=== PATIENT | female | born 1950 | race Caucasian/White ===

== ENCOUNTER → 2017-07-06 10:08 | Outpatient (CLI) | payer MEDICARE, MEDICAID, SELFPAY ==
[2017-07-06 12:00] LABS: Absolute Lymphocyte Count 1.84 X10^3/ul (0.83-4.51); Absolute Neutrophil Count 2.7 X10^3/uL (2.0-7.7); Basophil# 0.02 X10^3/uL; Basophil% 0.4 % (0-1); Eosinophil# 0.12 X10^3/uL; Eosinophils% 2.3 % (0-5); Hematocrit 41.5 % (37-47); Hemoglobin 13.3 g/dl (12.0-15.0); Lymphocyte # 1.84 X10^3/ul (4.0); Lymphocyte % 35.7 % (19-41); Mean Corpuscular Hgb 31.1 pg (27.0-32.0); Mean Platelet Vol. 9.8 fl (6.2-12.0); Monocyte# 0.49 X10^3/uL; Monocyte% 9.5 % (0-10); Neutrophil # 2.67 X10^3/uL (2.7-7.7); Neutrophil % 51.9 % (47-70); Platelet Count 212 K/mm3 (150-450); RBC Distribution Width CV 14.5 % (11.6-14.6); RBC Distribution Width SD 51.4 fl (35.1-43.9); Red Blood Count 4.28 M/mm3 (4.2-5.4); White Blood Count 5.2 K/mm3 (4.4-11.0)
[2017-07-06 12:03] LABS: POSITIVE COUNT NO; POSITIVE DIFFERENTIAL NO; POSITIVE MORPHOLOGY NO
[2017-07-06 12:23] LABS: Anion Gap 7 (5-15); BUN 15 mg/dL (7-18); BUN/Creat Ratio 20.2 RATIO (10-20); Calcium,Total 9.4 mg/dL (8.5-10.1); Chloride 103 mmol/L (98-107); Cholesterol 185 mg/dL (200); Creatinine, Serum 0.74 mg/dL (0.55-1.02); EST Glomerular Filtration Rate 83 mL/min (>60); Est Glom Filt Rate - Afr Amer 101 mL/min (>60); Glucose 103 mg/dL (74-106); High Density Lipoprotein 46 mg/dL; Potassium 4.2 mmol/L (3.5-5.1); Sodium Level 141 mmol/L (136-145); Thyroid Stim Hormone (TSH) 2.59 uIU/mL (0.358-3.74); Triglycerides 160 mg/dL; Very Low Density Lipoprotein 32 mg/dL (5-40)
[2017-07-07 10:36] LABS: Vitamin D,25 Hydroxy 40.2 ng/mL (19.95-100.01)
== END ==
PROVIDERS: Family Provider Family Medicine; PCP Family Medicine; Visit Provider Family Medicine
DX: Z00.00 Encounter for general adult medical examination without abnormal findings (principal)
CPT/HCPCS: 36415; 80048; 80061; 82306; 84443; 85025

== ENCOUNTER → 2017-11-14 11:29 | Outpatient (CLI) | payer MEDICARE, MEDICAID, SELFPAY ==
[2017-11-14 14:19] LABS: Hematocrit 40.3 % (37-47); Hemoglobin 13.3 g/dl (12.0-15.0); Mean Corpuscular Hgb 32.5 pg (27.0-32.0); Mean Corpuscular Volume 98.5 fL (81-99); Platelet Count 212 K/mm3 (150-450); RBC Distribution Width CV 14.5 % (11.6-14.6); Red Blood Count 4.09 M/mm3 (4.2-5.4); White Blood Count 6.3 K/mm3 (4.4-11.0)
[2017-11-14 14:29] LABS: Scan Indicated on CBC? Y/N NO
[2017-11-14 15:16] LABS: ALB/GLOB Ratio 1.1 RATIO (0.9-2.4); AST(SGOT) 33 U/L (15-37); Alanine Aminotransfer ALT/SGPT 36 U/L (13-56); Albumin, Serum 3.7 g/dL (3.2-5.0); Alkaline Phosphatase 76 U/L (45-117); Anion Gap 8 (5-15); BUN 15 mg/dL (7-18); BUN/Creat Ratio 21.8 RATIO (10-20); Calcium,Total 9.1 mg/dL (8.5-10.1); Chloride 108 mmol/L (98-107); Creatinine, Serum 0.69 mg/dL (0.55-1.02); EST Glomerular Filtration Rate 91 mL/min (>60); Est Glom Filt Rate - Afr Amer 110 mL/min (>60); Ferritin 166 ng/mL (8-252); Globulin 3.5 g/dL (2.2-4.2); Glucose 76 mg/dL (74-106); Iron 64 ug/dL (50-170); Magnesium 1.9 mg/dL (1.6-2.6); Potassium 3.6 mmol/L (3.5-5.1); Protein, Total 7.2 g/dL (6.4-8.2); Sodium Level 142 mmol/L (136-145)
[2017-11-15 09:43] LABS: Vitamin B12 618 pg/mL (211-911)
[2017-11-17 11:55] LABS: Zinc, Plasma or Serum 82 ug/dL (56-134)
== END ==
PROVIDERS: PCP Family Medicine; Visit Provider Surgery
DX: K90.9 Intestinal malabsorption, unspecified (principal); R06.09 Other forms of dyspnea; E66.01 Morbid (severe) obesity due to excess calories; E61.7 Deficiency of multiple nutrient elements; G47.10 Hypersomnia, unspecified; R10.9 Unspecified abdominal pain; G89.18 Other acute postprocedural pain
CPT/HCPCS: 36415; 80053; 82607; 82728; 82746; 83540; 83735; 84630; 85027

== ENCOUNTER → 2018-03-08 12:25 | Outpatient (CLI) | payer MEDICARE, MEDICAID, SELFPAY ==
--- NOTE | 2018-03-08 12:29 | US_ITS ---
STUDY: RENAL ULTRASOUND - COMPLETE REASON FOR EXAM: Female, 67 years old. H/O LT RENAL MASS- PARTIAL NEPHRECTOMY TECHNIQUE: Ultrasound evaluation of the kidneys was performed with real-time and static alba-scale imaging. COMPARISON: None. FINDINGS: RIGHT KIDNEY: Normal location of the right kidney, which is normal in size. The right kidney measures 10.5x5.2x4.9 cm. There is a normal cortex of the right kidney. The renal cortex measures 1.5 cm. There is no right renal mass or cyst. There are no right renal calculi. There is no right hydronephrosis. DISTAL RIGHT URETER: There is non-visualization of the distal right ureter. There is no demonstrated right ureterovesical junction calculus. There is no demonstrated right ureteral jet. LEFT KIDNEY: Normal location of the left kidney, which is normal in size. The left kidney measures 8.1x5x3.6 cm. There is a normal cortex of the left kidney. The renal cortex measures 1.1 cm. There is no left renal mass or cyst. There are no left renal calculi. There is no left hydronephrosis. DISTAL LEFT URETER: There is non-visualization of the distal left ureter. There is no demonstrated left ureterovesical junction calculus. There is no demonstrated left ureteral jet. BLADDER: There is a normal wall thickness of the distended urinary bladder. There is no demonstrated mass within the urinary bladder. There are no demonstrated bladder calculi. US/Kidney and Bladder IMPRESSION: Normal ultrasound of the kidneys and urinary bladder. Electronically Signed: Tariq Connor MD at 21:00 EDT , Service support ,
[2018-03-08 14:15] LABS: Anion Gap 8 (5-15); BUN 14 mg/dL (7-18); BUN/Creat Ratio 19.1 RATIO (10-20); Calcium,Total 9.6 mg/dL (8.5-10.1); Chloride 108 mmol/L (98-107); Creatinine, Serum 0.73 mg/dL (0.55-1.02); EST Glomerular Filtration Rate 84 mL/min (>60); Est Glom Filt Rate - Afr Amer 102 mL/min (>60); Glucose 82 mg/dL (74-106); Potassium 3.8 mmol/L (3.5-5.1); Sodium Level 144 mmol/L (136-145)
== END ==
PROVIDERS: Family Provider Family Medicine; PCP Family Medicine
DX: N28.89 Other specified disorders of kidney and ureter (principal)
CPT/HCPCS: 36415; 76770; 80048

== ENCOUNTER → 2018-03-26 07:15 | Outpatient (CLI) | payer MEDICARE, MEDICAID, SELFPAY ==
--- NOTE | 2018-03-26 07:21 | MRI_ITS ---
STUDY: MRI LUMBAR SPINE WITHOUT CONTRAST REASON FOR EXAM: Female, 67 years old. lbp,radiculopathy, lt leg pain. TECHNIQUE: Standardized fat and water weighted pulse sequences were obtained in the sagittal and axial planes. COMPARISON: None FINDINGS: T12-L1: There is mild disc space narrowing and endplate spondylosis. There is no significant disc herniation, central canal or foraminal stenosis. Normal lumbar lordosis. There is no substantial scoliosis. Normal conus medullaris that terminates at the L1 L1-2: There is minimal disc space narrowing and endplate spondylosis. There is no significant disc herniation, central canal or foraminal stenosis. There is 1.8 cm vertebral hemangioma at L2 L2-3: Normal endplates. Normal disc height, hydration and morphology. There is mild facet arthropathy. Normal central canal and bilateral lateral recesses. Normal bilateral intervertebral neural foramina. L3-4: There is minimal disc space narrowing and endplate spondylosis. There is no significant disc herniation, central canal or foraminal stenosis. There is moderate facet arthropathy. L4-5: There is minimal disc space narrowing and endplate spondylosis. There is severe facet arthropathy with grade 1 anterolisthesis without significant central canal or foraminal stenosis. L5-S1: Normal endplates. Normal disc height, hydration and morphology. Normal central canal and bilateral lateral recesses. Normal bilateral intervertebral neural foramina. There is severe facet arthropathy. Normal visualized sacral ala. Normal visualized paraspinous soft tissue structures. MRI/Spine Lumbar (Routine) IMPRESSION: L4/L5: Grade 1 degenerative anterolisthesis. L5/S1: Severe facet arthropathy. Electronically Signed: Claudia Keane MD at 15:22 EST Tel , Service support ,
== END ==
PROVIDERS: Family Provider Family Medicine; PCP Family Medicine; Referring Provider Specialist; Visit Provider Specialist
DX: M54.16 Radiculopathy, lumbar region (principal); M46.87 Other specified inflammatory spondylopathies, lumbosacral region; R53.1 Weakness
CPT/HCPCS: 72148

== ENCOUNTER 2018-03-29 11:30 | Outpatient (RCR) | payer MEDICARE, MEDICAID, SELFPAY ==
--- NOTE | 2018-03-08 15:56 | HP.PTEVAL_ITS ---
Patient's Visit Information NATALIO ADAIR is a 67 year old F referred to Physical Therapy by Kishor Oneal MD with a diagnosis of B knee OA. Date of Evaluation: 03/08/18 Physical Therapist: Alex Tello DPT, OC - Visit Plan Frequency: 3x /Week Duration: 4-6 Weeks Plan: 3x/week for 4-6 to start pool ex for posture adn LE strength in pool working on floor to stand transffer as able. Progress to I program via [employer] and consider machines after if willing. - Subjective Subjective: Had R TKA 2 yrs ago. Fell on L knee one year ago adn kristin tL knee cracking knee cap. Hard to get off ground. Fell on wet floor with clogs. R knee feels good since gastric bypass in September but L still hurts. Can't go on walks due to L knee pain. L hip appt due to pain in L hip whcih may need replaced. Not overly stable on legs. Has other falls described as misstep. Sleep is OK. L knee hurts to walk immediately /10. No steps at home. No cane or walker but has them. No numbness except surgical. No spinning. Not empl yed. Housework. does it but it hurts, avoids mopping. Basic ADLs are OK just slow ansd painful. No active hobbies. No regular exercises, may get a bike. L knee was replaced in 2001 as was R. - Pain L knee pain Pain Intensity (Out of 10): 0 Pain Intensity Range: 0, 8 - Objective L knee antalgia but I with gait without AD. Trasnfers are I with UE. bed trasnfer I. Unable to get off floor subjectively. AROM B knees 0-135 aROM without pain increase. Patella stiff B without pain increase. reflexes 2/3 patella and achilles B. Sensation WNl to gross light touch except lateral knee B slightly deficit. Strength is 4/5 R knee adn hip and ankle. L knee ext is 3+ with some pain, L knee flexion 4- , hip flexion L 3+ with pain, abd 4-, ext 3/5, ankle 4/5. - Balance Scores Functional Gait Assessment Score: 23 % Disability: 23.3400 - Goals Goal 1:: I approp HEP in pool to minimize pain and max strength L LE. Goal Time Frame: 4-6 Weeks Goal 2:: Pt report a 50% improvement in L knee pain to 3/10 at worst. Goal Time Frame: 4-6 Weeks Goal 3:: Get up off floor without assist. Goal Time Frame: 4-6 Weeks - Rehabilitation Potential Physical Therapy Diagnosis: B knee OA L hurts more than R. Rehabilitation Potential: Fair - Anticipated Interventions Patient/Client Instruction: Educate patient on: Condition, Plan of Care For the Purpose of:: To decrease pain, To increase tolerance to activity/condition/position Therapeutic Exercise to Include: Strength training, In an aquatic setting For the Purpose of:: To decrease pain, To increase tolerance to activity/condition/position, To improve ability of physical actions for home/community/work/leisure Thank you for the opportunity to evaluate your patient. For Medicare and Medicare HMO plans, please review the plan of care and approve it. It will need to be FAXED BACK to us at [phone] for Medicare purposes. Please let me know if there are questions or concerns regarding this plan of care. Physician Signature: Date :
--- NOTE | 2018-03-29 12:01 | HP.PTREVAL_ITS ---
Kishor Oneal MD, It has been my pleasure to treat NATALIO ADAIR over the last 9 visits for B knee OA. Please see the progress note below for an update on the physical therapy plan of care! Subjective: I can feel it getting stronger. Some pain in the water initially, backed off and the last two weeks ahve been better. Had an MRI on back on Monday for a different pain into L hip and LB. Has spinal stenosis. Dr. Oneal regarding knee said she needs surgery TKA but can't have due to recent gastric surgery adn has to wait until spring. Has script for LB today. Knee hurts if she walks too far 11/21 and feels better immediately with NWB. Will go to [facility] for winter just after [place]. Wants Objective/Function: No major changes to ROM. Still very tender lat L knee joint line to palpation and with each step WB on L. Knee AROM WFL for walking. Walks with mild L antalgia I. OVERALL RECOMMENDING CONTINUING I IN WATER. PT WOUD ALSO LIKE LAND BASED EX FOR KNEE HEALTH AND STRENGTH AND WILL BE TAUGHT THAT OVER THE NEXT 2 WEEKS. Plan Plan: 2X/WEEK FOR TWO WEEKS TO TEACH LAND BASED KNEE AND HIP STRENGTH TO TOLERANCE(START NWB AND PROGRESS TO WB TOLERATED) PLEASE TEACH EX BIKE AND GIVE PICS FOR HOME. MAY USE MH IF NEEDED. PT WILL SEE DOCTOR FOR LB PLANS TODAY AND MAY NEED TO SCHEDULE LB EVALUATION(SCRIPT IS HERE) Goals Goal 1:: I approp HEP in pool to minimize pain and max strength L LE. Goal Time Frame: 4-6 Weeks Goal Progress: pool, NEEDS LAND. Goal 2:: Pt report a 50% improvement in L knee pain to 3/10 at worst. Goal Time Frame: 4-6 Weeks Goal Progress: Goal Met Goal 3:: Get up off floor without assist. Goal Time Frame: 4-6 Weeks Goal Progress: Not Progressing Anticipated Interventions Patient/Client Instruction: Educate patient on: Condition, Plan of Care For the Purpose of:: To decrease pain, To increase tolerance to activity/condition/position Therapeutic Exercise to Include: Strength training, In an aquatic setting For the Purpose of:: To decrease pain, To increase tolerance to activity/condition/position, To improve ability of physical actions for home/community/work/leisure Please do not hesitate to contact me at [phone] by phone or if you have questions or concerns regarding this new plan of care! Sincerely, Alex Tello, DPT, OC
--- NOTE | 2018-05-25 13:48 | HP.PTDCNRP_ITS ---
HP - Discharge Summary (1) - Patient Information NATALIO ADAIR was seen in my office for initial evaluation on 03/08/18. The following Plan of Care was established for this patient: Initial Frequency: 3x /Week Initial Duration: 4-6 Weeks - Anticipated Interventions Patient/Client Instruction: Educate patient on: Condition, Plan of Care For the Purpose of:: To decrease pain, To increase tolerance to activity/condition/position Therapeutic Exercise to Include: Strength training, In an aquatic setting For the Purpose of:: To decrease pain, To increase tolerance to activity/condition/position, To improve ability of physical actions for home/community/work/leisure This patient was last seen in our office 03/29/18. Pertinent comments regarding their Physical therapy will appear below: Pt seen 9 visits and POC was for two more weeks. Patient neglected to schedule or attend. It has been over 6 weeks adn i will discontinue due to nonattend ance. At this point I will be discontinuing this patient from physical therapy. I would be happy to see this patient again in the future if found appropriate by the physician. Thank you! Alex Tello, DPT, OCS, CSCS
== END 2018-03-29 19:00 | disposition home or self-care (01) ==
LOC: PT 11:30
PROVIDERS: Family Provider Family Medicine; PCP Family Medicine; Referring Provider Specialist; Visit Provider Specialist
DX: Z96.652 Presence of left artificial knee joint (principal); Z96.651 Presence of right artificial knee joint
CPT/HCPCS: 36415; 76770; 80048; 97113; 97162; 97530

== ENCOUNTER → 2018-04-13 09:53 | Outpatient (CLI) | payer MEDICARE, MEDICAID, SELFPAY ==
[2018-04-13 10:53] LABS: Hematocrit 39.1 % (37-47); Hemoglobin 12.8 g/dl (12.0-15.0); Mean Corp Hgb Conc 32.7 g/gl (32-36); Mean Corpuscular Hgb 32.2 pg (27.0-32.0); Mean Corpuscular Volume 98.2 fL (81-99); Mean Platelet Vol. 10.6 fl (6.2-12.0); Platelet Count 217 K/mm3 (150-450); RBC Distribution Width CV 14.4 % (11.6-14.6); RBC Distribution Width SD 50.1 fl (35.1-43.9); Red Blood Count 3.98 M/mm3 (4.2-5.4); White Blood Count 3.7 K/mm3 (4.4-11.0)
[2018-04-13 10:54] LABS: Scan Indicated on CBC? Y/N NO
[2018-04-13 11:26] LABS: Vitamin B12 497 pg/mL (211-911)
[2018-04-13 11:58] LABS: ALB/GLOB Ratio 1.1 RATIO (0.9-2.4); AST(SGOT) 27 U/L (15-37); Alanine Aminotransfer ALT/SGPT 26 U/L (13-56); Albumin, Serum 3.6 g/dL (3.2-5.0); Alkaline Phosphatase 93 U/L (45-117); Anion Gap 7 (5-15); BUN 11 mg/dL (7-18); BUN/Creat Ratio 17.8 RATIO (10-20); Calcium,Total 8.7 mg/dL (8.5-10.1); Chloride 107 mmol/L (98-107); Cholesterol 136 mg/dL (200); Creatinine, Serum 0.62 mg/dL (0.55-1.02); EST Glomerular Filtration Rate 102 mL/min (>60); Est Glom Filt Rate - Afr Amer 124 mL/min (>60); Ferritin 137 ng/mL (8-252); Globulin 3.3 g/dL (2.2-4.2); Glucose 82 mg/dL (74-106); High Density Lipoprotein 43 mg/dL; Iron 73 ug/dL (50-170); Magnesium 1.9 mg/dL (1.6-2.6); Potassium 3.9 mmol/L (3.5-5.1); Protein, Total 6.9 g/dL (6.4-8.2); Sodium Level 144 mmol/L (136-145); Triglycerides 115 mg/dL; Very Low Density Lipoprotein 23 mg/dL (5-40)
[2018-04-17 08:17] LABS: Zinc, Plasma or Serum 66 ug/dL (56-134)
--- OUTSIDE RECORDS SUMMARY | 2018-06-08 05:08 | XMS RPT_ITS ---
:1950 Author Organization OHIP Support Name Relationship Address Phone Shell Castelana Unavailable Unavailable + Bradford, Ava Unavailable Unavailable + Bertha, Richa Unavailable Unavailable + LANCE CASTELAN Unavailable [address] + [place] [address] R Unavailable Unavailable Unavailable BERTHA, RICHA Unavailable [address] + [place] [address] ORLANDO CASTELANONY Unavailable [address] + [place] [address] R Unavailable Unavailable Unavailable BERTHA, RICHA Unavailable [address] + [place] [address] LANCE CASTELAN Unavailable [address] + [place] [address] R Unavailable Unavailable Unavailable BERTHA, RICHA Unavailable [address] + [place] [address] LANCE CASTELAN Unavailable [address] + [place] [address] R Unavailable Unavailable Unavailable BERTHA, RICHA Unavailable [address] + [place] [address] Annelise Elyse Unavailable Unavailable + Bradford, Ava Unavailable Unavailable + Bertha, Richa Unavailable Unavailable + Mast, Elyse Unavailable Unavailable + Bradford, Ava Unavailable Unavailable + Bertha, Richa Unavailable Unavailable + Mast, Elyse Unavailable Unavailable + Bradford, Ava Unavailable Unavailable + Bertha, Richa Unavailable Unavailable + Mast, Elyse Unavailable Unavailable + Bradford, Ava Unavailable Unavailable + Bertha, Richa Unavailable Unavailable + Mast, Elyse Unavailable Unavailable + Bradford, Ava Unavailable Unavailable + Bertha, Richa Unavailable Unavailable + Mast, Elyse Unavailable Unavailable + Bradford, Ava Unavailable Unavailable + Bertha, Richa Unavailable Unavailable + Mast, Elyse Unavailable Unavailable + Bradford, Ava Unavailable Unavailable + Bertha, Richa Unavailable Unavailable + Mast, Elyse Unavailable Unavailable + Bradford, Ava Unavailable Unavailable + Bertha, Richa Unavailable Unavailable + MAST, LANCE Unavailable [address] + [place] [address] R Unavailable Unavailable Unavailable BERTHA, RICHA Unavailable [address] + [place] [address] Mast, Elyse Unavailable Unavailable + Bradford, Ava Unavailable Unavailable + Bertha, Richa Unavailable Unavailable + Mast, Elyse Unavailable Unavailable + Bradford, Ava Unavailable Unavailable + Bertha, Richa Unavailable Unavailable + Mast, Elyse Unavailable Unavailable + Bradford, Ava Unavailable Unavailable + Bertha, Richa Unavailable Unavailable + Mast, Elyse Unavailable Unavailable + Bradford, Ava Unavailable Unavailable + Bertha, Richa Unavailable Unavailable + Mast, Elyse Unavailable Unavailable + Bradford, Ava Unavailable Unavailable + Bertha, Richa Unavailable Unavailable + Mast, Elyse Unavailable Unavailable + Bradford, Ava Unavailable Unavailable + Bertha, Richa Unavailable Unavailable + Mast, Elyse Unavailable Unavailable + Bradford, Ava Unavailable Unavailable + Bertha, Richa Unavailable Unavailable + Mast, Elyse Unavailable Unavailable + Bradford, Ava Unavailable Unavailable + Bertha, Richa Unavailable Unavailable + Mast, Elyse Unavailable Unavailable + Bradford, Ava Unavailable Unavailable + Bertha, Richa Unavailable Unavailable + Mast, Elyse Unavailable Unavailable + Bradford, Ava Unavailable Unavailable + Bertha, Richa Unavailable Unavailable + MAST, LANCE Unavailable [address] + [place] [address] R Unavailable Unavailable Unavailable BERTHA, RICHA Unavailable [address] + [place] [address] MAST, LANCE Unavailable [address] + [place] [address] R Unavailable Unavailable Unavailable BERTHA, RICHA Unavailable [address] + [place] [address] Mast, Elyse Unavailable Unavailable + Bradford, Ava Unavailable Unavailable + Bertha, Richa Unavailable Unavailable + Mast, Elyse Unavailable Unavailable + Bradford, Ava Unavailable Unavailable + Bertha, Richa Unavailable Unavailable + [place] Castelan Unavailable Unavailable + Ava Felder Unavailable Unavailable + Duncan Stonea Unavailable Unavailable + LANCE CASTELAN Unavailable [address] + [place] [address] R Unavailable Unavailable Unavailable RICHA STONE Unavailable [address] + [place] [address] [facility] [address] + [place] [address] R Unavailable Unavailable Unavailable DUNCAN STONEA Unavailable [address] + [place] [address] Care Team Providers Name Role Phone Pako Levin Attending Unavailable PROVIDER, UNKNOWN Referring Unavailable Foss, Gregory Primary Care Unavailable Esteban Contreras Attending Unavailable PROVIDER, UNKNOWN Referring Unavailable Foss, Gregory Primary Care Unavailable PROVIDER, UNKNOWN Referring Unavailable Foss, Gregory Primary Care Unavailable Pako Levin Attending Unavailable Esteban Contreras Attending Unavailable PROVIDER, UNKNOWN Referring Unavailable Foss, Gregory Primary Care Unavailable PROVIDER, UNKNOWN Referring Unavailable Foss, Gregory Primary Care Unavailable Pako Levin Attending Unavailable Tony Acosta Attending Unavailable PROVIDER, UNKNOWN Referring Unavailable Foss, Gregory Primary Care Unavailable Tony Acosta Attending Unavailable PROVIDER, UNKNOWN Referring Unavailable Foss, Gregory Primary Care Unavailable Tony Acosta Attending Unavailable PROVIDER, UNKNOWN Referring Unavailable Foss, Gregory Primary Care Unavailable Veronica Bird Attending Unavailable PROVIDER, UNKNOWN Referring Unavailable Foss, Gregory Primary Care Unavailable ZoTony paiz Attending Unavailable PROVIDER, UNKNOWN Referring Unavailable Foss, Gregory Primary Care Unavailable JOSE ALEJANDRO NEWTON Attending Unavailable PROVIDER, UNKNOWN Referring Unavailable Foss, Gregory Primary Care Unavailable Tony Acosta Attending Unavailable PROVIDER, UNKNOWN Referring Unavailable Foss, Gregory Primary Care Unavailable Tony Acosta Attending Unavailable PROVIDER, UNKNOWN Referring Unavailable Foss, Gregory Primary Care Unavailable Tony Acosta Attending Unavailable PROVIDER, UNKNOWN Referring Unavailable Foss, Gregory Primary Care Unavailable JOSE ALEJANDRO NEWTON Attending Unavailable PROVIDER, UNKNOWN Referring Unavailable Foss, Gregory Primary Care Unavailable PROVIDER, UNKNOWN Referring Unavailable Foss, Gregory Primary Care Unavailable Tony Acosta Attending Unavailable PROVIDER, UNKNOWN Referring Unavailable Foss, Gregory Primary Care Unavailable Karla, Tony Attending Unavailable ZABRINA ONEIL Attending Unavailable PROVIDER, UNKNOWN Referring Unavailable Foss, Gregory Primary Care Unavailable BRIDLE, JOSE ALEJANDRO R. Attending Unavailable PROVIDER, UNKNOWN Referring Unavailable Foss, Gregory Primary Care Unavailable Tony Acosta Attending Unavailable PROVIDER, UNKNOWN Referring Unavailable Foss, Gregory Primary Care Unavailable PROVIDER, UNKNOWN Referring Unavailable Foss, Gregory Primary Care Unavailable BRIDLE, JOSE ALEJANDRO R. Attending Unavailable Tony Acosta Attending Unavailable PROVIDER, UNKNOWN Referring Unavailable Foss, Gregory Primary Care Unavailable Kishor Oneal Attending Unavailable Jm, Kishor Referring Unavailable Foss, Gregory Primary Care Unavailable Bridle, Jose Alejandro RADAR SIGNAL PROCESSING ENGINEER-C Attending Unavailable Bridle, Jose Alejandro RADAR SIGNAL PROCESSING ENGINEER-C Referring Unavailable Foss, Gregory Primary Care Unavailable Pily Ribeiro D.C. Attending Unavailable Foss, Gregory Referring Unavailable Foss, Gregory Primary Care Unavailable GABBI KRISHNA Attending Unavailable GABBI KRISHNA Referring Unavailable Foss, Gregory Primary Care Unavailable GABBI KRISHNA Consulting Unavailable Jm, Kishor Attending Unavailable Jm, Kishor Referring Unavailable Foss, Gregory Primary Care Unavailable KARLA, TONY Attending Unavailable Foss, Gregory Attending Unavailable Foss, Gregory Primary Care Unavailable GABBI KRISHNA Referring Unavailable Foss, Gregory Primary Care Unavailable GABBI KRISHNA Attending Unavailable Pily Ribeiro D.C. Attending Unavailable Foss, Gregory Referring Unavailable PROBLEMS PROBLEMS DATE TYPE CONDITION / CODE ATTENDING STATUS SOURCE 04/17/2018 Admitting Gastro-esophageal BRIDLE, JOSE ALEJANDRO [facility] Diagnosis reflux disease R. System without esophagitis Repository / K21.9(ICD-10) 04/17/2018 Admitting Obstructive sleep BRIDLE, JOSE ALEJANDRO [facility] Diagnosis apnea (adult) R. System (pediatric) / Repository G47.33(ICD-10) 04/17/2018 Admitting Morbid (severe) BRIDLE, JOSE ALEJANDRO [facility] Diagnosis obesity due to R. System excess calories / Repository E66.01(ICD-10) 04/17/2018 Admitting Other fatigue / BRIDLE, JOSE ALEJANDRO [facility] Diagnosis R53.83(ICD-10) R. System Repository 04/17/2018 Admitting Dorsalgia, BRIDLE, JOSE ALEJANDRO [facility] Diagnosis unspecified / R. System M54.9(ICD-10) Repository 04/17/2018 Admitting Other chronic pain / BRIDLE, JOSE ALEJANDRO [facility] Diagnosis G89.29(ICD-10) R. System Repository 04/17/2018 Admitting Intestinal BRIDLE, JOSE ALEJANDRO [facility] Diagnosis malabsorption, R. System unspecified / Repository K90.9(ICD-10) 04/17/2018 Admitting Deficiency of BRIDLE, JOSE ALEJANDRO [facility] Diagnosis nutrient element, R. System unspecified / Repository E61.9(ICD-10) 04/17/2018 Admitting Vitamin D BRIDLE, JOSE ALEJANDRO [facility] Diagnosis deficiency, R. System unspecified / Repository E55.9(ICD-10) 04/17/2018 Admitting Body mass index BRIDLE, JOSE ALEJANDRO [facility] Diagnosis (BMI) 40.0-44.9, R. System adult / Repository Z68.41(ICD-10) 04/13/2018 Unknown E61.9 - Deficiency Bridle, Jose Alejandro Active [facility] of nutrient element, RADAR SIGNAL PROCESSING ENGINEER-C Community unspecified / Hospital E61.9(ICD-10) Repository 04/13/2018 Unknown E66.01 - Morbid Bridle, Jose Alejandro Active [facility] (severe) obesity due RADAR SIGNAL PROCESSING ENGINEER-C Community to excess calories / Hospital E66.01(ICD-10) Repository 04/13/2018 Unknown K90.9 - Intestinal Bridle, Jose Alejandro Active [facility] malabsorption, RADAR SIGNAL PROCESSING ENGINEER-C Community unspecified / Hospital K90.9(ICD-10) Repository 04/13/2018 Unknown R53.83 - Other Bridle, Jose Alejandro Active [place] fatigue / RAD[employer] SIGNAL PROCESSING ENGINEER-C Community R53.83(ICD-10) Hospital Repository 04/13/2018 Unknown E55.9 - Vitamin D Bridle, Jose Alejandro Active [place] deficiency, RADAR SIGNAL PROCESSING ENGINEER-C Community unspecified / Hospital E55.9(ICD-10) Repository 04/13/2018 Unknown Z68.42 - Body mass Bridle, Jose Alejandro Active [place] index (BMI) RAD[employer] SIGNAL PROCESSING ENGINEER-C Community 45.0-49.9, adult / Hospital Z68.42(ICD-10) Repository 04/16/2018 Unknown Z96.652 - Presence Jm, Kishor Active [place] of left artificial Community knee joint / Hospital Z96.652(ICD-10) Repository 01/12/2018 Admitting Shortness of breath Zografakis, Active [facility] Diagnosis / R06.02(ICD-10) Tony System Repository 01/12/2018 Admitting Other acute Zografakis, Active [facility] Diagnosis postprocedural pain Tony System / G89.18(ICD-10) Repository 01/12/2018 Admitting Unspecified Zografakis, Active [facility] Diagnosis abdominal pain / Tony System R10.9(ICD-10) Repository 01/12/2018 Admitting Somnolence / Zografakis, Active [facility] Diagnosis R40.0(ICD-10) Tony System Repository 01/12/2018 Admitting Bariatric surgery Zografakis, Active [facility] Diagnosis status / Tony System Z98.84(ICD-10) Repository 01/12/2018 Admitting Deficiency of Zografakis, Active [facility] Diagnosis multiple nutrient Tony System elements / Repository E61.7(ICD-10) 01/12/2018 Admitting Body mass index Zografakis, Active [facility] Diagnosis (BMI) 45.0-49.9, Tony System adult / Repository Z68.42(ICD-10) 12/14/2017 Admitting Dysphagia, Zografakis, Active [facility] Diagnosis unspecified / Tony System R13.10(ICD-10) Repository 12/14/2017 Admitting Anxiety disorder, Zografakis, Active [facility] Diagnosis unspecified / Tony System F41.9(ICD-10) Repository 12/14/2017 Admitting Personal history of Zografakis, Active [facility] Diagnosis other malignant Tony System neoplasm of kidney / Repository Z85.528(ICD-10) 12/14/2017 Admitting Nausea with Zografakis, Active [facility] Diagnosis vomiting, Tony System unspecified / Repository R11.2(ICD-10) 12/14/2017 Admitting Other complications Zografakis, Active [facility] Diagnosis of other bariatric [facility] System procedure / Repository K95.89(ICD-10) 11/27/2017 Admitting Pain in unspecified ZABRINA ONEIL Active [facility] Diagnosis joint / M System M25.50(ICD-10) Repository 11/27/2017 Admitting Diaphragmatic hernia THADZABRINA ROSE Active [facility] Diagnosis without obstruction M System or gangrene / Repository K44.9(ICD-10) 11/27/2017 Admitting Major depressive ZABRINA ONEIL [facility] Diagnosis disorder, single M System episode, unspecified Repository / F32.9(ICD-10) 11/27/2017 Admitting Allergy status to ZABRINA ONEIL Active [facility] Diagnosis penicillin / M System Z88.0(ICD-10) Repository 11/27/2017 Admitting Allergy status to ZABRINA ONEIL Active [facility] Diagnosis oth drug/meds/biol M System subst status / Repository Z88.8(ICD-10) 11/27/2017 Admitting Family hx of ischem ZABRINA ONEIL Active [facility] Diagnosis heart dis and oth M System dis of the circ sys Repository / Z82.49(ICD-10) 11/22/2017 Admitting Panic disorder Pelon [facility] [episodic paroxysmal Veronica System anxiety] / Repository F41.0(ICD-10) 11/14/2017 Unknown R06.02 - Shortness ZOGRAFAKIS, Active [place] of breath / [facility] R06.02(ICD-10) Hospital Repository 11/14/2017 Unknown E66.9 - Obesity, ZOGRAFAKIS, Active [place] unspecified / [facility] E66.9(ICD-10) Hospital Repository 11/14/2017 Unknown K90.49 - ZOGRAFAKIS, Active [place] Malabsorption due to [facility] intolerance, not Hospital elsewhere classified Repository / K90.49(ICD-10) 11/14/2017 Unknown E61.7 - Deficiency ZOGRAFAKIS, Active [place] of multiple nutrient [facility] elements / Hospital E61.7(ICD-10) Repository 10/19/2017 Admitting Body mass index Zografakis, Active [facility] Diagnosis (BMI) 50-59.9 , [facility] System adult / Repository Z68.43(ICD-10) 10/19/2017 Admitting Encounter for other Zografakis, Active [facility] Diagnosis specified surgical Tony System aftercare / Repository Z48.89(ICD-10) 10/19/2017 Admitting Candidal stomatitis Zografakis, Active [facility] Diagnosis / B37.0(ICD-10) Tony System Repository 10/11/2017 Admitting Fatty (change of) Zografakis, Active [facility] Diagnosis liver, not elsewhere Tony System classified / Repository K76.0(ICD-10) 10/11/2017 Admitting Unspecified Zografakis, Active [facility] Diagnosis osteoarthritis, Tony System unspecified site / Repository M19.90(ICD-10) 10/11/2017 Admitting Presence of Zografakis, Active [facility] Diagnosis artificial knee [facility] System joint, bilateral / Repository Z96.653(ICD-10) 10/06/2017 Admitting Body mass index BRIDJOSE ALEJANDRO CARDONA Active [facility] Diagnosis (BMI) 34.0-34.9, R. System adult / Repository Z68.34(ICD-10) 10/06/2017 Admitting Other specified Zografakis, Active [facility] Diagnosis health status / Tony System Z78.9(ICD-10) Repository 10/06/2017 Admitting Encounter for other Zografakis, Active [facility] Diagnosis preprocedural Tony System examination / Repository Z01.818(ICD-10) 10/06/2017 Admitting Other forms of Zografakis, Active [facility] Diagnosis dyspnea / Tony System R06.09(ICD-10) Repository 09/14/2017 Admitting Prediabetes / JOSE ALEJANDRO NEWTON Active [facility] Diagnosis R73.03(ICD-10) R. System Repository 09/14/2017 Admitting Encounter for JOSE ALEJANDRO NEWTON Active [facility] Diagnosis screening for R. 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 Community dysfunction of Hospital cervical region / Repository M99.01(ICD-10) 04/27/2017 Unknown M99.02 - Segmental [place]ie[place]ily Active [place] and somatic D.C. Community dysfunction of Hospital thoracic region / Repository M99.02(ICD-10) 04/27/2017 Unknown M99.03 - Segmental Dossie, Pily Active [place] and somatic D.C. [facility] dysfunction Hospital lumbar region / Repository M99.03(ICD-10) PROCEDURES PROCEDURES No Procedure Records FoundRESULTS RESULTS CBC-COMPLETE BLOOD CNT Collected: 04/13/2018 Status: F Source: [place] NO DIFF 10:09 AM [facility] REPOSITORY TYPE CODE TESTS RESULT OUT OF RANGE REFERENCE UNITS LAB L100.1000 4.4-11.0 K/mm3 Low WBC 3.7 LAB L100.1200 4.2-5.4 M/mm3 Low RBC 3.98 LAB L100.1300 12.0-15.0 g/dl Normal HGB 12.8 LAB L100.1400 37-47 % Normal HCT 39.1 LAB L100.1500 81-99 fL Normal MCV 98.2 LAB L100.1600 27.0-32.0 pg High MCH 32.2 LAB L100.1700 32-36 g/gl Normal MCHC 32.7 LAB L100.1810 11.6-14.6 % Normal RDW CV 14.4 LAB L100.1820 35.1-43.9 fl High RDW SD 50.1 LAB L100.1900 150-450 K/mm3 Normal PLT 217 LAB L100.2000 6.2-12.0 fl Normal MPV 10.6 Performed By: #### L100.0500 #### [facility] [address] [place], [address] VITAMIN B12 Collected: 04/13/2018 Status: F Source: [place] 10:09 AM [facility] REPOSITORY TYPE CODE TESTS RESULT OUT OF RANGE REFERENCE UNITS LAB L503.0105 211-911 pg/mL Normal Vitamin B12 497 Performed By: #### L503.0105, L506.1000 #### [facility] [address] [place], [address] VITAMIN D,25 HYDROXY Collected: 04/13/2018 Status: F Source: [place] 10:09 AM [facility] REPOSITORY TYPE CODE TESTS RESULT OUT OF RANGE REFERENCE UNITS LAB L506.1000 29.95-100.01 ng/mL Normal Vitamin D 51.0 25-OH Result Comment: Vitamin D 25(OH) Status Range Deficiency <20 ng/mL (50nmol/L) Insuffciency 20 - 30 ng/mL (50 - 75 nmol/L) Sufficiency 30 - 100 ng/mL (75 - 250 nmol/L) Toxicity >100 ng/mL (>250 nmol/L) Performed By: #### L503.0105, L506.1000 #### [facility] [address] [place], [address] COMPREHENSIVE METABOLIC Collected: 04/13/2018 Status: F Source: [place] [facility] 10:09 AM [facility] REPOSITORY Order Comment: Is Patient Taking Vitamins or Folic Acid Supplements? N TYPE CODE TESTS RESULT OUT OF RANGE REFERENCE UNITS LAB L501.0100 74-106 mg/dL Normal GLU 82 Result Comment: Please note revised GLUCOSE reference range effective 2017. LAB L501.1000 7-18 mg/dL Normal BUN 11 LAB L501.1100 0.55-1.02 mg/dL Normal CREAT,SERUM 0.62 Result Comment: The validity of the calculated GFR AND GFRAA in patients over 70 years has not been determined. Clinical correlation is essential. LAB L501.1110 >60 mL/min Normal EST GFR 102 Result Comment: Non- GFR Calc LAB L501.1115 >60 mL/min Normal EST GFR - AA 124 Result Comment: GFR Calc LAB L501.1300 10-20 RATIO Normal BUN/CRE 17.8 LAB L501.1500 6.4-8.2 g/dL T Normal PROT 6.9 LAB L501.1800 3.2-5.0 g/dL Normal ALB 3.6 LAB L501.1950 2.2-4.2 g/dL Normal GLOB 3.3 LAB L501.2000 0.9-2.4 RATIO Normal A/G 1.1 LAB L501.2200 8.5-10.1 mg/dL CA Normal 8.7 LAB L501.4100 15-37 U/L Normal AST 27 LAB L501.4305 45-117 U/L Normal ALK P 93 LAB L501.4405 13-56 U/L Normal ALT 26 LAB L501.4600 0.20-1.00 mg/dL T Normal BILI 0.70 LAB L501.5300 136-145 mmol/L NA Normal 144 LAB L501.5600 3.5-5.1 mmol/L K Normal 3.9 LAB L501.5900 98-107 mmol/L CL Normal 107 LAB L501.6100 21.0-32.0 mmol/L Normal CO2 30.0 LAB L501.6200 5-15 Normal GAP 7 Performed By: #### L500.4050, L500.4100, L501.5200, L503.6150, L503.6550, L506.0250 #### [facility] [address] [facility] [place], [place], [address] LIPID PROFILE Collected: 04/13/2018 Status: F Source: [place] 10:09 AM [facility] REPOSITORY Order Comment: Is Patient Taking Vitamins or Folic Acid Supplements? N TYPE CODE TESTS RESULT OUT OF RANGE REFERENCE UNITS LAB L501.4900 200 mg/dL Normal CHOL 136 Result Comment: <200 mg/dL Desirable 200-240 mg/dL Borderline >240 mg/dL High Risk LAB L501.5000 mg/dL Normal TRIG 115 Result Comment: The drugs N-Acetylcysteine and Metamizole may falsely depress this assay. Serum Triglycerides Reference Interval Normal <150 mg/dL Borderline high 150 - 199 mg/dL High 200 - 499 mg/dL Very High > or = 500 mg/dL LAB L501.6400 mg/dL Normal HDL 43 Result Comment: The drugs N-Acetylcysteine and Metamizole may falsely depress this assay. Reference Range HDL <40 mg/dL Low HDL Cholesterol HDL >or= 60 mg/dL High HDL Cholesterol LAB L501.6500 0-130 mg/dL Normal LDL 70 LAB L501.6600 5-40 mg/dL Normal VLDL 23 Performed By: #### L500.4050, L500.4100, L501.5200, L503.6150, L503.6550, L506.0250 #### [facility] [address] [place], [address] MAGNESIUM Collected: 04/13/2018 Status: F Source: [place] 10:09 AM [facility] REPOSITORY Order Comment: Is Patient Taking Vitamins or Folic Acid Supplements? N TYPE CODE TESTS RESULT OUT OF RANGE REFERENCE UNITS LAB L501.5200 1.6-2.6 mg/dL Normal MG 1.9 Performed By: #### L500.4050, L500.4100, L501.5200, L503.6150, L503.6550, L506.0250 #### [facility] [address] [place], [address] IRON Collected: 04/13/2018 Status: F Source: [place] 10:09 [facility] REPOSITORY Order Comment: Is Patient Taking Vitamins or Folic Acid Supplements? N TYPE CODE TESTS RESULT OUT OF RANGE REFERENCE UNITS LAB L503.6150 50-170 ug/dL Normal IRON 73 Performed By: #### L500.4050, L500.4100, L501.5200, L503.6150, L503.6550, L506.0250 #### [facility] [address] [place], [address] FERRITIN Collected: 04/13/2018 Status: F Source: [place] 10:09 [facility] REPOSITORY Order Comment: Is Patient Taking Vitamins or Folic Acid Supplements? N TYPE CODE TESTS RESULT OUT OF RANGE REFERENCE UNITS LAB L503.6550 8-252 ng/mL Normal FERRITIN 137 Performed By: #### L500.4050, L500.4100, L501.5200, L503.6150, L503.6550, L506.0250 #### [facility] [address] [place], [address] FOLATES, (FOLIC ACID) Collected: 04/13/2018 Status: F Source: [place] 10:09 [facility] REPOSITORY Order Comment: Is Patient Taking Vitamins or Folic Acid Supplements? N TYPE CODE TESTS RESULT OUT OF RANGE REFERENCE UNITS LAB L506.0250 3.1-55.4 ng/mL Normal FOLATES 36.30 Performed By: #### L500.4050, L500.4100, L501.5200, L503.6150, L503.6550, L506.0250 #### [facility] [address] [place], [address] ZINC, PLASMA OR Collected: 04/13/2018 Status: F Source: [place] 10:09 AM [facility] REPOSITORY TYPE CODE TESTS RESULT OUT OF RANGE REFERENCE UNITS LAB L3300.9900 56-134 ug/dL Normal ZINC 66 Plasma/Ser Result Comment: Detection Limit = 5 Performed at: BN - [facility] [address] [id number] [employer] Instrument Maker: Megha Mcneill MD, Phone: [phone] Performed By: #### L3300.9900 #### [facility] (refer to report for specific site) refer to report for address and phone number RE-EVALUATION - PT (1) Observed: 03/29/2018 Status: F Source: [place] 12:01 PM [facility] REPOSITORY [facility] [address] [place] [address] Fax REEVALUATION / MEDICARE RECERTIFICATION PHYSICAL THERAPY MR#: [id number] Acct: [id number] Name: NATALIO CASTELAN Rep #: [id number] : 1950 67 From: Alex Tello DPT, OCS, CSCS Referring Dr.: Kishor Oneal MD Status: REG RCR Insurance: MEDICARE PART A B MEDICAID Kishor Oneal MD, It has been my pleasure to treat NATALIO CASTELAN over the last 9 visits for B knee OA. Please see the progress note below for an update on the physical therapy plan of care! Subjective: I can feel it getting stronger. Some pain in the water initially, backed off and the last two weeks ahve been better. Had an MRI on back on Monday for a different pain into L hip and LB. Has spinal stenosis. Dr. Oneal regarding knee said she needs surgery TKA but can't have due to recent gastric surgery adn has to wait until spring. Has script for LB today. Knee hurts if she walks too far 11/21 and feels better immediately with NWB. Will go to [facility] for winter just after . Wants Objective/Function: No major changes to ROM. Still very tender lat L knee joint line to palpation and with each step WB on L. Knee AROM WFL for walking. Walks with mild L antalgia I. OVERALL RECOMMENDING CONTINUING I IN WATER. PT WOUD ALSO LIKE LAND BASED EX FOR KNEE HEALTH AND STRENGTH AND WILL BE TAUGHT THAT OVER THE NEXT 2 WEEKS. Plan Plan: 2X/WEEK FOR TWO WEEKS TO TEACH LAND BASED KNEE AND HIP STRENGTH TO TOLERANCE(START NWB AND PROGRESS TO WB TOLERATED) PLEASE TEACH EX BIKE AND GIVE PICS FOR HOME. MAY USE MH IF NEEDED. PT WILL SEE DOCTOR FOR LB PLANS TODAY AND MAY NEED TO SCHEDULE LB EVALUATION(SCRIPT IS HERE) Goals Goal 1:: I approp HEP in pool to minimize pain and max strength L LE. Goal Time Frame: 4-6 Weeks Goal Progress: pool, NEEDS LAND. Goal 2:: Pt report a 50% improvement in L knee pain to 3/10 at worst. Goal Time Frame: 4-6 Weeks Goal Progress: Goal Met Goal 3:: Get up off floor without assist. Goal Time Frame: 4-6 Weeks Goal Progress: Not Progressing Anticipated Interventions Patient/Client Instruction: Educate patient on: Condition, Plan of Care For the Purpose of:: To decrease pain, To increase tolerance to activity/condition/position Therapeutic Exercise to Include: Strength training, In an aquatic setting For the Purpose of:: To decrease pain, To increase tolerance to activity/condition/position, To improve ability of physical actions for home/community/work/leisure Please do not hesitate to contact me at [phone] by phone or if you have questions or concerns regarding this new plan of care! Sincerely, Alex Tello, DPT, OC <Electronically signed by Alex Tello DPT, OCS, CSCS> 03/29/18 1201 CC: Gregory Foss MD; Kishor Oneal MD EBG Signed For Medicare only, by signing this I certify the plan of care. Physicians Signature Date SPINE LUMBAR Observed: 03/26/2018 Status: F Source: [place] (ROUTINE) 7:22 AM [facility] REPOSITORY [facility] Imaging Services [address] [place] [address] Spine Lumbar (Routine) MR#: [id number] Acct: [id number] Name: NATALIO CASTELAN Rep #: [id number] : 1950 F 67 From: Claudia Keane PCP: Gregory Foss MD Status: REG CLI Study: Spine Lumbar (Routine) Date of Exam: 03/26/18 Exam# [id number] Ordering Dr: Kishor Oneal MD ADDENDUM by Claudia Keane on 03/27/18 at 0806 ADDENDUM Comparison: Nov 02 2012 x-ray report. Electronically Signed: Claudia Keane MD at 8:06 EST Tel , Service support , 03/27/18 08 Date cc: Gregory Foss MD; Kishor Oneal MD * Signed ADDENDUM by Claudia Keane on 03/27/18 at 0806 MRI/Spine Lumbar (Routine) 03/27/18812 Date cc: Gregory Foss MD; Kishor Oneal MD * Signed STUDY: MRI LUMBAR SPINE WITHOUT CONTRAST REASON FOR EXAM: Female, 67 years old. lbp,radiculopathy, lt leg pain. TECHNIQUE: Standardized fat and water weighted pulse sequences were obtained in the sagittal and axial planes. COMPARISON: None FINDINGS: T12-L1: There is mild disc space narrowing and endplate spondylosis. There is no significant disc herniation, central canal or foraminal stenosis. Normal lumbar lordosis. There is no substantial scoliosis. Normal conus medullaris that terminates at the L1 L1-2: There is minimal disc space narrowing and endplate spondylosis. There is no significant disc herniation, central canal or foraminal stenosis. There is 1.8 cm vertebral hemangioma at L2 L2-3: Normal endplates. Normal disc height, hydration and morphology. There is mild facet arthropathy. Normal central canal and bilateral lateral recesses. Normal bilateral intervertebral neural foramina. L3-4: There is minimal disc space narrowing and endplate spondylosis. There is no significant disc herniation, central canal or foraminal stenosis. There is moderate facet arthropathy. L4-5: There is minimal disc space narrowing and endplate spondylosis. There is severe facet arthropathy with grade 1 anterolisthesis without significant central canal or foraminal stenosis. L5-S1: Normal endplates. Normal disc height, hydration and morphology. Normal central canal and bilateral lateral recesses. Normal bilateral intervertebral neural foramina. There is severe facet arthropathy. Normal visualized sacral ala. Normal visualized paraspinous soft tissue structures. MRI/Spine Lumbar (Routine) IMPRESSION: L4/L5: Grade 1 degenerative anterolisthesis. L5/S1: Severe facet arthropathy. Electronically Signed: Claudia Keane MD at 15:22 EST Tel , Service support , CC: Gregory Foss MD; Kishor Oneal MD Meter Reader Chief: Signed INITAL EVALUATION (1) Observed: 03/09/2018 Status: F Source: [facility] 6:49 AM [facility] REPOSITORY [facility] [place] [address] Fax REHABILITATION SERVICES INITIAL EVALUATION MR#: [id number] Acct: [id number] Name: NATALIO CASTELAN Rep #: [id number] : 1950 67 From: Alex Tello DPT, OCS, CSCS Referring Dr.: Kishor Oneal MD Status: REG RCR Insurance: MEDICARE PART A B MEDICAID Patient's Visit Information NATALIO CASTELAN is a 67 year old F referred to Physical Therapy by Kishor Oneal MD with a diagnosis of B knee OA. Date of Evaluation: 03/08/18 Physical Therapist: Alex Tello DPT, OC - Visit Plan Frequency: 3x /Week Duration: 4-6 Weeks Plan: 3x/week for 4-6 to start pool ex for posture adn LE strength in pool working on floor to stand transffer as able. Progress to I program via [employer] and consider machines after if willing. - Subjective Subjective: Had R TKA 2 yrs ago. Fell on L knee one year ago adn kristin tL knee cracking knee cap. Hard to get off ground. Fell on wet floor with clogs. R knee feels good since gastric bypass in September but L still hurts. Can't go on walks due to L knee pain. L hip appt due to pain in L hip whcih may need replaced. Not overly stable on legs. Has other falls described as misstep. Sleep is OK. L knee hurts to walk immediately 5/10. No steps at home. No cane or walker but has them. No numbness except surgical. No spinning. Not emplyed. Housework. does it but it hurts, avoids mopping. Basic ADLs are OK just slow ansd painful. No active hobbies. No regular exercises, may get a bike. L knee was replaced in 2001 as was R. - Pain L knee pain Pain Intensity (Out of 10): 0 Pain Intensity Range: 0, 8 - Objective L knee antalgia but I with gait without AD. Trasnfers are I with UE. bed trasnfer I. Unable to get off floor subjectively. AROM B knees 0-135 aROM without pain increase. Patella stiff B without pain increase. reflexes 2/3 patella and achilles B. Sensation WNl to gross light touch except lateral knee B slightly deficit. Strength is 4/5 R knee adn hip and ankle. L knee ext is 3+ with some pain, L knee flexion 4- , hip flexion L 3+ with pain, abd 4-, ext 3/5, ankle 4/5. - Balance Scores Functional Gait Assessment Score: 23 % Disability: 23.3400 - Goals Goal 1:: I approp HEP in pool to minimize pain and max strength L LE. Goal Time Frame: 4-6 Weeks Goal 2:: Pt report a 50% improvement in L knee pain to 3/10 at worst. Goal Time Frame: 4-6 Weeks Goal 3:: Get up off floor without assist. Goal Time Frame: 4-6 Weeks - Rehabilitation Potential Physical Therapy Diagnosis: B knee OA L hurts more than R. Rehabilitation Potential: Fair - Anticipated Interventions Patient/Client Instruction: Educate patient on: Condition, Plan of Care For the Purpose of:: To decrease pain, To increase tolerance to activity/condition/position Therapeutic Exercise to Include: Strength training, In an aquatic setting For the Purpose of:: To decrease pain, To increase tolerance to activity/condition/position, To improve ability of physical actions for home/community/work/leisure Thank you for the opportunity to evaluate your patient. For Medicare and Medicare HMO plans, please review the plan of care and approve it. It will need to be FAXED BACK to us at [phone] for Medicare purposes. Please let me know if there are questions or concerns regarding this plan of care. Physician Signature: Date: <Electronically signed by Alex Tello DPT, OCS, CSCS> 03/09/18 0649 CC: Gregory Foss MD; Kishor Oneal MD EBG Signed For Medicare only, by signing this I certify the plan of care. Physicians Signature Date KIDNEY AND BLADDER Observed: 03/08/2018 Status: F Source: [place] 12:29 PM [facility] REPOSITORY [facility] Imaging Services [address] [place] [address] Kidney and Bladder MR#: [id number] Acct: [id number] Name: NATALIO CASTELAN Rep #: [id number] : 1950 F 67 From: Tariq Connor MD PCP: Gregory Foss MD Status: REG CLI Study: Kidney and Bladder Date of Exam: 03/08/18 Exam# [id number] Ordering Dr: ESTEBAN CONTRERAS STUDY: RENAL ULTRASOUND - COMPLETE REASON FOR EXAM: Female, 67 years old. H/O LT RENAL MASS- PARTIAL NEPHRECTOMY TECHNIQUE: Ultrasound evaluation of the kidneys was performed with real-time and static alba-scale imaging. COMPARISON: None. FINDINGS: RIGHT KIDNEY: Normal location of the right kidney, which is normal in size. The right kidney measures 10.5x5.2x4.9 cm. There is a normal cortex of the right kidney. The renal cortex measures 1.5 cm. There is no right renal mass or cyst. There are no right renal calculi. There is no right hydronephrosis. DISTAL RIGHT URETER: There is non-visualization of the distal right ureter. There is no demonstrated right ureterovesical junction calculus. There is no demonstrated right ureteral jet. LEFT KIDNEY: Normal location of the left kidney, which is normal in size. The left kidney measures 8.1x5x3.6 cm. There is a normal cortex of the left kidney. The renal cortex measures 1.1 cm. There is no left renal mass or cyst. There are no left renal calculi. There is no left hydronephrosis. DISTAL LEFT URETER: There is non-visualization of the distal left ureter. There is no demonstrated left ureterovesical junction calculus. There is no demonstrated left ureteral jet. BLADDER: There is a normal wall thickness of the distended urinary bladder. There is no demonstrated mass within the urinary bladder. There are no demonstrated bladder calculi. US/Kidney and Bladder IMPRESSION: Normal ultrasound of the kidneys and urinary bladder. Electronically Signed: Tariq Connor MD at 21:00 EDT , Service support , CC: ESTEBAN CONTRERAS; Gregory Foss MD Meter Reader Chief: Signed HEMOGRAM Collected: 01/12/2018 Status: F Source: [place] 2:52 PM SYSTEM REPOSITORY TYPE CODE TESTS RESULT OUT OF RANGE REFERENCE UNITS LAB IWBC 3.6-10.7 10*3/uL WBC Normal 6.9 LAB RBC 3.80-5.20 10*6/uL RBC Normal 4.27 LAB HGB 11.7-16.0 g/dL Normal Hemoglobin 13.7 LAB HCT 35.0-47.0 % Normal Hematocrit 41.0 LAB MCV 79.0-98.0 fL MCV Normal 96.0 LAB MCH 26.0-34.0 pg MCH Normal 32.2 LAB MCHC 32.0-36.0 % MCHC Normal 33.5 LAB RDW 11.5-14.5 % RDW Normal 14.4 LAB PLT 140-440 10*3/uL Platelet Normal 229 LAB MPV 7.4-10.4 fL MPV Normal 9.5 Performed By: #### HEMOG, CMP3, MG3, IRON3, FERR3, FOLT3, B12 #### [facility] [address] [place] [id number] COMP METABOLIC PANEL Collected: 01/12/2018 Status: F Source: [place] 2:52 PM SYSTEM REPOSITORY TYPE CODE TESTS RESULT OUT OF RANGE REFERENCE UNITS LAB NA3 137-145 mmol/L Sodium Normal 144 LAB K3 3.5-5.1 mmol/L Normal Potassium 3.9 LAB CL3 98-107 mmol/L Chloride Normal 106 LAB CO23 22-30 mmol/L Carbon Normal Dioxide 29 LAB ANIN3 NA Anion Gap 9 LAB GLUC3 70-100 mg/dL Glucose Normal 80 LAB BUN3 7-20 mg/dL Urea Normal Nitrogen 15 LAB CRET3 0.52-1.25 mg/dL Normal Creatinine 0.94 LAB GF3BR >60 mL/min eGFR > 60.0 LAB GF3WR >60 mL/min eGFR OTHER 59.5 Result Comment: Source- MDRD equation with creatinine calibration to IDMS(NKDEP) eGFR not recommended for drug dose adjustment LAB CA3 8.4-10.4 mg/dL Calcium Normal 9.6 LAB ALB3 3.5-5.0 g/dL Albumin, Serum Normal 4.2 LAB TP3 6.3-8.2 g/dL Total Protein Normal 6.5 LAB BILT3 0.2-1.3 mg/dL Normal Bilirubin,Total 0.6 LAB ALKP3 38-126 U/L Alkaline Normal Phosphatase 80 LAB ALT3 13-69 U/L ALT (SGPT) Normal 35 LAB AST3 15-46 U/L AST (SGOT) Normal 33 Performed By: #### HEMOG, CMP3, MG3, IRON3, FERR3, FOLT3, B12 #### [facility] [address] [place] [phone] MAGNESIUM Collected: 01/12/2018 Status: F Source: [place] 2:52 PM SYSTEM REPOSITORY TYPE CODE TESTS RESULT OUT OF RANGE REFERENCE UNITS LAB MG3 1.6-2.3 mg/dL Normal Magnesium 1.8 Performed By: #### HEMOG, CMP3, MG3, IRON3, FERR3, FOLT3, B12 #### [facility] [address] [place] [phone] IRON, TOTAL Collected: 01/12/2018 Status: F Source: [place] 2:52 PM SYSTEM REPOSITORY TYPE CODE TESTS RESULT OUT OF RANGE REFERENCE UNITS LAB IRON3 37-170 ug/dL Normal Iron, 52 Total Performed By: #### HEMOG, CMP3, MG3, IRON3, FERR3, FOLT3, B12 #### [facility] [address] [place] [phone] FERRITIN Collected: 01/12/2018 Status: F Source: [place] 2:52 PM SYSTEM REPOSITORY TYPE CODE TESTS RESULT OUT OF RANGE REFERENCE UNITS LAB 3FERR 8-252 ng/mL Normal Ferritin 122 Performed By: #### HEMOG, CMP3, MG3, IRON3, FERR3, FOLT3, B12 #### [facility] [address] [place] [phone] FOLATE Collected: 01/12/2018 Status: F Source: [place] 2:52 PM SYSTEM REPOSITORY TYPE CODE TESTS RESULT OUT OF RANGE REFERENCE UNITS LAB 3FOLT 2.8-20.0 ng/mL Normal Folate 17.8 Performed By: #### HEMOG, CMP3, MG3, IRON3, FERR3, FOLT3, B12 #### [facility] [address] [place] [address] VITAMIN B12 Collected: 01/12/2018 Status: F Source: [place] 2:52 PM SYSTEM REPOSITORY TYPE CODE TESTS RESULT OUT OF RANGE REFERENCE UNITS LAB B12 239-931 pg/mL Normal Vitamin B12 535 Performed By: #### HEMOG, CMP3, MG3, IRON3, FERR3, FOLT3, B12 #### [facility] [address] [place] [address] ZINC, SERUM Collected: 01/12/2018 Status: F Source: [place] 2:52 PM SYSTEM REPOSITORY TYPE CODE TESTS RESULT OUT OF REFERENCE UNITS RANGE LAB ZINCR 60-120 ug/dL Zinc, 75 Serum Result Comment: INTERPRETIVE INFORMATION: Zinc, Serum or Plasma Circulating zinc concentrations are dependent on albumin status and are depressed with malnutrition. Zinc may also be lowered with infection, inflammation, stress, oral contraceptives, and . Zinc may be elevated with zinc supplementation or fasting. Elevated zinc concentrations may interfere with copper absorption. Test developed and characteristics determined by [employer]. See Compliance Statement B: [employer]/ Performed by [employer], [address] [place] [id number] [email or web address], Les Rubin MD - Lab. Director Performed By: #### ZINC2 #### The performing lab is in the report. HEMOGRAM Collected: 11/27/2017 Status: F Source: [place] 9:51 AM SYSTEM REPOSITORY TYPE CODE TESTS RESULT OUT OF RANGE REFERENCE UNITS LAB IWBC 3.6-10.7 10*3/uL WBC Normal 5.1 LAB RBC 3.80-5.20 10*6/uL RBC Normal 4.27 LAB HGB 11.7-16.0 g/dL Normal Hemoglobin 14.1 LAB HCT 35.0-47.0 % Normal Hematocrit 40.9 LAB MCV 79.0-98.0 fL MCV Normal 95.8 LAB MCH 26.0-34.0 pg MCH Normal 33.0 LAB MCHC 32.0-36.0 % MCHC Normal 34.5 LAB RDW 11.5-14.5 % High RDW 14.9 LAB PLT 140-440 10*3/uL Platelet Normal 240 LAB MPV 7.4-10.4 fL MPV Normal 9.7 Performed By: #### HEMOG, CMP3, MG3, IRON3, FOLT3, B12, FERR3 #### [facility] [employer] [address] [address] COMP METABOLIC PANEL Collected: 11/27/2017 Status: F Source: [place] 9:51 AM SYSTEM REPOSITORY TYPE CODE TESTS RESULT OUT OF RANGE REFERENCE UNITS LAB NA3 137-145 mmol/L Sodium Normal 144 LAB K3 3.5-5.1 mmol/L Normal Potassium 3.9 LAB CL3 98-107 mmol/L Chloride Normal 107 LAB CO23 22-30 mmol/L Carbon Normal Dioxide 30 LAB ANIN3 NA Anion Gap 7 LAB GLUC3 70-100 mg/dL Glucose Normal 88 LAB BUN3 7-20 mg/dL Urea Normal Nitrogen 13 LAB CRET3 0.52-1.25 mg/dL Normal Creatinine 0.69 LAB GF3BR >60 mL/min eGFR > 60.0 LAB GF3WR >60 mL/min eGFR OTHER > 60.0 Result Comment: Source- MDRD equation with creatinine calibration to IDMS(NKDEP) eGFR not recommended for drug dose adjustment LAB CA3 8.4-10.4 mg/dL Calcium Normal 10.0 LAB ALB3 3.5-5.0 g/dL Albumin, Serum Normal 4.4 LAB TP3 6.3-8.2 g/dL Total Protein Normal 6.8 LAB BILT3 0.2-1.3 mg/dL Normal Bilirubin,Total 0.9 LAB ALKP3 38-126 U/L Alkaline Normal Phosphatase 71 LAB ALT3 13-69 U/L ALT (SGPT) Normal 42 LAB AST3 15-46 U/L AST (SGOT) Normal 38 Performed By: #### HEMOG, CMP3, MG3, IRON3, FOLT3, B12, FERR3 #### [facility] [address] [address] MAGNESIUM Collected: 11/27/2017 Status: F Source: [place] 9:51 AM SYSTEM REPOSITORY TYPE CODE TESTS RESULT OUT OF RANGE REFERENCE UNITS LAB MG3 1.6-2.3 mg/dL Normal Magnesium 1.8 Performed By: #### HEMOG, CMP3, MG3, IRON3, FOLT3, B12, FERR3 #### [facility] [address] [place] [address] IRON, TOTAL Collected: 11/27/2017 Status: F Source: [place] 9:51 AM SYSTEM REPOSITORY TYPE CODE TESTS RESULT OUT OF RANGE REFERENCE UNITS LAB IRON3 37-170 ug/dL Normal Iron, 102 Total Performed By: #### HEMOG, CMP3, MG3, IRON3, FOLT3, B12, FERR3 #### [facility] [address] [place] [address] FOLATE Collected: 11/27/2017 Status: F Source: [place] 9:51 AM SYSTEM REPOSITORY TYPE CODE TESTS RESULT OUT OF RANGE REFERENCE UNITS LAB 3FOLT 2.8-20.0 ng/mL Normal Folate > 20.0 Performed By: #### HEMOG, CMP3, MG3, IRON3, FOLT3, B12, FERR3 #### [facility] [address] [place] [address] VITAMIN B12 Collected: 11/27/2017 Status: F Source: [place] 9:51 AM SYSTEM REPOSITORY TYPE CODE TESTS RESULT OUT OF REFERENCE UNITS RANGE LAB B12 239-931 pg/mL High Vitamin B12 990 Performed By: #### HEMOG, CMP3, MG3, IRON3, FOLT3, B12, FERR3 #### [facility] [address] [place] [address] FERRITIN Collected: 11/27/2017 Status: F Source: [place] 9:51 AM SYSTEM REPOSITORY TYPE CODE TESTS RESULT OUT OF RANGE REFERENCE UNITS LAB 3FERR 8-252 ng/mL Normal Ferritin 126 Performed By: #### HEMOG, CMP3, MG3, IRON3, FOLT3, B12, FERR3 #### [facility] [address] [place] [address] ZINC, SERUM Collected: 11/27/2017 Status: F Source: [place] 9:51 AM SYSTEM REPOSITORY TYPE CODE TESTS RESULT OUT OF REFERENCE UNITS RANGE LAB ZINCR 60-120 ug/dL Zinc, 96 Serum Result Comment: INTERPRETIVE INFORMATION: Zinc, Serum or Plasma Circulating zinc concentrations are dependent on albumin status and are depressed with malnutrition. Zinc may also be lowered with infection, inflammation, stress, oral contraceptives, and . Zinc may be elevated with zinc supplementation or fasting. Elevated zinc concentrations may interfere with copper absorption. Test developed and characteristics determined by [employer]. See Compliance Statement B: [facility]/ Performed by [facility], [address] [place] [id number] [email or web address], Les Rubin MD - Lab. Director Performed By: #### ZINC2 #### The performing lab is in the report. CBC-COMPLETE BLOOD CNT Collected: 11/14/2017 Status: F Source: [place] NO DIFF 11:33 AM [facility] REPOSITORY TYPE CODE TESTS RESULT OUT OF RANGE REFERENCE UNITS LAB L100.1000 4.4-11.0 K/mm3 Normal WBC 6.3 LAB L100.1200 4.2-5.4 M/mm3 Low RBC 4.09 LAB L100.1300 12.0-15.0 g/dl Normal HGB 13.3 LAB L100.1400 37-47 % Normal HCT 40.3 LAB L100.1500 81-99 fL Normal MCV 98.5 LAB L100.1600 27.0-32.0 pg High MCH 32.5 LAB L100.1700 32-36 g/gl Normal MCHC 33.0 LAB L100.1810 11.6-14.6 % Normal RDW CV 14.5 LAB L100.1820 35.1-43.9 fl High RDW SD 51.0 LAB L100.1900 150-450 K/mm3 Normal PLT 212 LAB L100.2000 6.2-12.0 fl Normal MPV 11.0 Performed By: #### L100.0500 #### [facility] [address] [place], [address] COMPREHENSIVE METABOLIC Collected: 11/14/2017 Status: F Source: [place] LEE 11:33 AM [facility] REPOSITORY Order Comment: Is Patient Taking Vitamins or Folic Acid Supplements? N TYPE CODE TESTS RESULT OUT OF RANGE REFERENCE UNITS LAB L501.0100 74-106 mg/dL Normal GLU 76 Result Comment: Please note revised GLUCOSE reference range effective 2017. LAB L501.1000 7-18 mg/dL Normal BUN 15 LAB L501.1100 0.55-1.02 mg/dL Normal CREAT,SERUM 0.69 Result Comment: The validity of the calculated GFR AND GFRAA in patients over 70 years has not been determined. Clinical correlation is essential. LAB L501.1110 >60 mL/min Normal EST GFR 91 Result Comment: Non- GFR Calc LAB L501.1115 >60 mL/min Normal EST GFR - AA 110 Result Comment: GFR Calc LAB L501.1300 10-20 RATIO High BUN/CRE 21.8 LAB L501.1500 6.4-8.2 g/dL T Normal PROT 7.2 LAB L501.1800 3.2-5.0 g/dL Normal ALB 3.7 LAB L501.1950 2.2-4.2 g/dL Normal GLOB 3.5 LAB L501.2000 0.9-2.4 RATIO Normal A/G 1.1 LAB L501.2200 8.5-10.1 mg/dL CA Normal 9.1 LAB L501.4100 15-37 U/L Normal AST 33 LAB L501.4305 45-117 U/L Normal ALK P 76 LAB L501.4405 13-56 U/L Normal ALT 36 LAB L501.4600 0.20-1.00 mg/dL T Normal BILI 0.70 LAB L501.5300 136-145 mmol/L NA Normal 142 LAB L501.5600 3.5-5.1 mmol/L K Normal 3.6 LAB L501.5900 98-107 mmol/L High CL 108 LAB L501.6100 21.0-32.0 mmol/L Normal CO2 26.0 LAB L501.6200 5-15 Normal GAP 8 Performed By: #### L500.4050, L501.5200, L503.6150, L503.6550, L506.0250 #### [facility] [address] [place], [address] MAGNESIUM Collected: 11/14/2017 Status: F Source: [place] 11:33 AM [facility] REPOSITORY Order Comment: Is Patient Taking Vitamins or Folic Acid Supplements? N TYPE CODE TESTS RESULT OUT OF RANGE REFERENCE UNITS LAB L501.5200 1.6-2.6 mg/dL Normal MG 1.9 Performed By: #### L500.4050, L501.5200, L503.6150, L503.6550, L506.0250 #### [facility] [address] [place], [address] IRON Collected: 11/14/2017 Status: F Source: [place] 11:33 [facility] REPOSITORY Order Comment: Is Patient Taking Vitamins or Folic Acid Supplements? N TYPE CODE TESTS RESULT OUT OF RANGE REFERENCE UNITS LAB L503.6150 50-170 ug/dL Normal IRON 64 Performed By: #### L500.4050, L501.5200, L503.6150, L503.6550, L506.0250 #### [facility] [address] [place], [address] FERRITIN Collected: 11/14/2017 Status: F Source: [place] 11:[address] [place] [address] REPOSITORY Order Comment: Is Patient Taking Vitamins or Folic Acid Supplements? N TYPE CODE TESTS RESULT OUT OF RANGE REFERENCE UNITS LAB L503.6550 8-252 ng/mL Normal FERRITIN 166 Performed By: #### L500.4050, L501.5200, L503.6150, L503.6550, L506.0250 #### [facility] [address] [place], [address] FOLATES, (FOLIC ACID) Collected: 11/14/2017 Status: F Source: [place] 11:[address] [place] [address] REPOSITORY Order Comment: Is Patient Taking Vitamins or Folic Acid Supplements? N TYPE CODE TESTS RESULT OUT OF RANGE REFERENCE UNITS LAB L506.0250 3.1-55.4 ng/mL Normal FOLATES 23.80 Result Comment: Slight Hemolysis, Result may be falsely increased. Performed By: #### L500.4050, L501.5200, L503.6150, L503.6550, L506.0250 #### [facility] [address] [place], [address] VITAMIN B12 Collected: 11/14/2017 Status: F Source: [place] 11:33 AM [facility] REPOSITORY TYPE CODE TESTS RESULT OUT OF RANGE REFERENCE UNITS LAB L503.0105 211-911 pg/mL Normal Vitamin B12 618 Performed By: #### L503.0105 #### [facility] [place], [address] ZINC, PLASMA OR Collected: 11/14/2017 Status: F Source: [place] SERUM 11:33 AM [facility] REPOSITORY TYPE CODE TESTS RESULT OUT OF RANGE REFERENCE UNITS LAB L3300.9900 56-134 ug/dL Normal ZINC 82 Plasma/Ser Result Comment: Detection Limit = 5 Performed at: [facility] [id number] [employer] Instrument Maker: Prashant Ford MD, Phone: [phone] Performed By: #### L3300.9900 #### [facility] (refer to report for specific site) refer to report for address and phone number HEMOGRAM W/ AUTODIFF Collected: 10/13/2017 Status: F Source: Pluck 4:12 AM SYSTEM REPOSITORY TYPE CODE TESTS RESULT OUT OF REFERENCE UNITS RANGE LAB IWBC 3.6-10.7 10*3/uL WBC Normal 7.1 LAB RBC 3.80-5.20 10*6/uL Low RBC 3.59 LAB HGB 11.7-16.0 g/dL Hemoglobin Normal 11.9 LAB HCT 35.0-47.0 % Low Hematocrit 34.9 LAB MCV 79.0-98.0 fL MCV Normal 97.1 LAB MCH 26.0-34.0 pg MCH Normal 33.3 LAB MCHC 32.0-36.0 % MCHC Normal 34.3 LAB RDW 11.5-14.5 % RDW High 14.7 LAB PLT 140-440 10*3/uL Platelet Normal 157 LAB MPV 7.4-10.4 fL MPV Normal 8.2 LAB GRAN% 40.0-80.0 % Granulocytes Normal 74.7 LAB LYMP% 20.0-40.0 % Low Lymphocytes 14.5 LAB MONO% 2.0-10.0 % Monocytes Normal 9.8 LAB EOS% 1.0-6.0 % Low Eosinophils 0.4 LAB BAS% 0.0-2.0 % Basophils Normal 0.6 LAB ANC 1.8-7.0 10*3/uL Abs Normal Neutrophile Cnt 5.3 LAB ALC 1.0-4.3 10*3/uL Abs Lymph Cnt Normal 1.0 LAB AMC 0.0-0.8 10*3/uL Abs Monocyte Normal Cnt 0.7 LAB AEC 0.0-0.5 10*3/uL Abs Eosin Cnt Normal 0.0 LAB ABC 0.0-0.2 10*3/uL Abs Baso Cnt Normal 0.0 Performed By: #### HEMDF, BMP3, MG3 #### [facility] [address] [place] [phone] BASIC METABOLIC PANEL Collected: 10/13/2017 Status: F Source: Pluck 4:12 AM SYSTEM REPOSITORY TYPE CODE TESTS RESULT OUT OF RANGE REFERENCE UNITS LAB NA3 137-145 mmol/L Sodium Normal 142 LAB K3 3.5-5.1 mmol/L Normal Potassium 4.1 LAB CL3 98-107 mmol/L High Chloride 108 LAB CO23 22-30 mmol/L Carbon Normal Dioxide 28 LAB ANIN3 NA Anion Gap 6 LAB GLUC3 70-100 mg/dL High Glucose 121 LAB BUN3 7-20 mg/dL Urea Normal Nitrogen 10 LAB CRET3 0.52-1.25 mg/dL Normal Creatinine 0.91 LAB GF3BR >60 mL/min eGFR > 60.0 LAB GF3WR >60 mL/min eGFR OTHER > 60.0 Result Comment: Source- MDRD equation with creatinine calibration to IDMS(NKDEP) eGFR not recommended for drug dose adjustment LAB CA3 8.4-10.2 mg/dL Normal Calcium 8.8 Performed By: #### HEMDF, BMP3, MG3 #### [facility] [address] [place] [phone] MAGNESIUM Collected: 10/13/2017 Status: F Source: Pluck 4:12 AM SYSTEM REPOSITORY TYPE CODE TESTS RESULT OUT OF RANGE REFERENCE UNITS LAB MG3 1.6-2.3 mg/dL Normal Magnesium 2.0 Performed By: #### HEMDF, BMP3, MG3 #### [facility] [address] [place] [phone] RF UGI W/O KUB W/ Observed: 10/12/2017 Status: F Source: Pluck OR W/O DELAY FLM 9:15 AM SYSTEM REPOSITORY Patient Name: NATALIO CASTELAN Fluoroscopy Exam Date/Time 10/12/2017 08:11:02 EDT Exam RF UGI w/o KUB and w/ or w/o Delay Flm Ordering Physician Elsa ARMENTA JENNIFER Accession Number [id number] [facility] Codes 57138 () Reason For Exam s/p LRYGB Report GASTROGRAFIN UPPER GI SERIES History: Status post gastric bypass surgery and hiatal hernia repair postop day one. Evaluate for leak. Comparison: None. Fluoroscopy time: 0.30 minutes. 28 fluoroscopic spot images were obtained. Technique: Gastrografin was administered per physician request. Findings: Gastrografin is administered orally to the patient in an upright position. The esophagus shows no evidence of perforation or extravasation. There has been subtotal gastric resection. The gastrojejunostomy is patent with no evidence of extravasation or obstruction. The contrast empties readily from the opacified gastric remnant into the jejunum. There is nonobstructed flow of contrast in the jejunojejunostomy beyond the level of the metallic clips. A surgical drain is noted in the left upper quadrant. IMPRESSION: Status post gastric bypass surgery with postsurgical changes. No evidence of extravasation or obstruction. Report Dictated on Final Dictated: 10/12/2017 9:14 am Dictating Physician: MD MORAES AHMAD Signed Date and Time: 10/12/2017 10:46 am Signed by: MD MORAES AHMAD Transcribed Date and Time: 10/12/2017 9:15 HEMOGRAM W/ AUTODIFF Collected: 10/12/2017 Status: F Source: Pluck 3:27 AM SYSTEM REPOSITORY TYPE CODE TESTS RESULT OUT OF REFERENCE UNITS RANGE LAB IWBC 3.6-10.7 10*3/uL WBC Normal 9.1 LAB RBC 3.80-5.20 10*6/uL Low RBC 3.76 LAB HGB 11.7-16.0 g/dL Hemoglobin Normal 12.3 LAB HCT 35.0-47.0 % Hematocrit Normal 36.6 LAB MCV 79.0-98.0 fL MCV Normal 97.3 LAB MCH 26.0-34.0 pg MCH Normal 32.8 LAB MCHC 32.0-36.0 % MCHC Normal 33.7 LAB RDW 11.5-14.5 % RDW Normal 14.4 LAB PLT 140-440 10*3/uL Platelet Normal 186 LAB MPV 7.4-10.4 fL MPV Normal 8.4 LAB GRAN% 40.0-80.0 % Granulocytes High 81.5 LAB LYMP% 20.0-40.0 % Low Lymphocytes 8.9 LAB MONO% 2.0-10.0 % Monocytes Normal 9.3 LAB EOS% 1.0-6.0 % Low Eosinophils 0.0 LAB BAS% 0.0-2.0 % Basophils Normal 0.3 LAB ANC 1.8-7.0 10*3/uL Abs High Neutrophile Cnt 7.4 LAB ALC 1.0-4.3 10*3/uL Low Abs Lymph Cnt 0.8 LAB AMC 0.0-0.8 10*3/uL Abs Monocyte Normal Cnt 0.8 LAB AEC 0.0-0.5 10*3/uL Abs Eosin Cnt Normal 0.0 LAB ABC 0.0-0.2 10*3/uL Abs Baso Cnt Normal 0.0 Performed By: #### HEMDF, BMP3, MG3 #### [facility] [address] [phone] BASIC METABOLIC PANEL Collected: 10/12/2017 Status: F Source: Pluck 3:27 AM SYSTEM REPOSITORY TYPE CODE TESTS RESULT OUT OF RANGE REFERENCE UNITS LAB NA3 137-145 mmol/L Sodium Normal 144 LAB K3 3.5-5.1 mmol/L Normal Potassium 4.1 LAB CL3 98-107 mmol/L High Chloride 108 LAB CO23 22-30 mmol/L Carbon Normal Dioxide 26 LAB ANIN3 NA Anion Gap 10 LAB GLUC3 70-100 mg/dL High Glucose 131 LAB BUN3 7-20 mg/dL Urea Normal Nitrogen 14 LAB CRET3 0.52-1.25 mg/dL Normal Creatinine 0.95 LAB GF3BR >60 mL/min eGFR > 60.0 LAB GF3WR >60 mL/min eGFR OTHER 58.8 Result Comment: Source- MDRD equation with creatinine calibration to IDMS(NKDEP) eGFR not recommended for drug dose adjustment LAB CA3 8.4-10.2 mg/dL Normal Calcium 8.8 Performed By: #### HEMDF, BMP3, MG3 #### [facility] [address] [place] [phone] MAGNESIUM Collected: 10/12/2017 Status: F Source: [place]uck 3:27 AM SYSTEM REPOSITORY TYPE CODE TESTS RESULT OUT OF RANGE REFERENCE UNITS LAB MG3 1.6-2.3 mg/dL Normal Magnesium 1.8 Performed By: #### HEMDF, BMP3, MG3 #### [facility] [address] [place] [phone] HEMOGLOBIN AND Collected: 10/11/2017 Status: F Source: Pluck HEMATOCRIT 1:36 PM SYSTEM REPOSITORY TYPE CODE TESTS RESULT OUT OF RANGE REFERENCE UNITS LAB HGB 11.7-16.0 g/dL Normal Hemoglobin 14.1 LAB HCT 35.0-47.0 % Normal Hematocrit 40.8 Performed By: #### HGHCT, BMP3, MG3 #### [facility] [address] [place] [phone] BASIC METABOLIC PANEL Collected: 10/11/2017 Status: F Source: [place]uck 1:36 PM SYSTEM REPOSITORY TYPE CODE TESTS RESULT OUT OF RANGE REFERENCE UNITS LAB NA3 137-145 mmol/L Sodium Normal 142 LAB K3 3.5-5.1 mmol/L Normal Potassium 3.7 LAB CL3 98-107 mmol/L Chloride Normal 106 LAB CO23 22-30 mmol/L Carbon Normal Dioxide 25 LAB ANIN3 NA Anion Gap 11 LAB GLUC3 70-100 mg/dL High Glucose 153 LAB BUN3 7-20 mg/dL Urea Normal Nitrogen 14 LAB CRET3 0.52-1.25 mg/dL Normal Creatinine 0.92 LAB GF3BR >60 mL/min eGFR > 60.0 LAB GF3WR >60 mL/min eGFR OTHER > 60.0 Result Comment: Source- MDRD equation with creatinine calibration to IDMS(NKDEP) eGFR not recommended for drug dose adjustment LAB CA3 8.4-10.2 mg/dL Normal Calcium 8.8 Performed By: #### HGHCT, BMP3, MG3 #### [facility] [address] [place] [address] MAGNESIUM Collected: 10/11/2017 Status: F Source: [employer] [place] 1:36 PM SYSTEM REPOSITORY TYPE CODE TESTS RESULT OUT OF RANGE REFERENCE UNITS LAB MG3 1.6-2.3 mg/dL Normal Magnesium 1.7 Performed By: #### HGHCT, BMP3, MG3 #### [facility] [address] [place] [address] Observed: 10/11/2017 Status: F Source: [facility] PATH[facility] 10:51 AM SYSTEM REPOSITORY [id number] [facility] PATHOLOG[facility] AND [facility]ORATORY MEDICINE [address] [place] [address] FINAL SURGICAL PATHOLOGY REPORT NAME: NATALIO CASTELAN Emily : 1950 67 Y F BILLING NO.: [id number] LOCATION: [address] [place] [address] PROCEDURE 10/11/2017 DATE: SURGEON: TONY ACOSTA M.D. RECEIVED 10/11/2017 DATE: ATTENDING: TONY ACOSTA M.D. REPORT DATE: 10/12/2017 COPIES TO: DIAGNOSIS: LIVER, BIOPSY - SEVERE STEATOSIS (70%). IRON STAIN SHOWS NO INCREASED IRON. TRICHROME STAIN SHOWS NO FIBROSIS. LH3/JEROME <Sign Out Dr. Houston> ESTEBAN FISCHER M.D. CLINICAL INFORMATION: Morbid obesity SPECIMEN: LIVER NEEDLE OR WEDGE BIOPSY, MEDICAL GROSS DESCRIPTION: Liver biopsy Received in formalin are two reddish-brown tissue segments measuring 0.7 x 0.3 cm. The specimen is entirely submitted in a single cassette. (2 ns, 1) JCK/KMS1 Disclaimer: The following statement applies to all immunohistochemistry, in situ hybridization, molecular studies, and immunofluorescence testing. The use of one or more reagents in the above tests is regulated as an analyte specific reagent (ASR). These tests were developed and their performance characteristics determined by the clinical laboratories of [facility]. They have not been cleared by the US Food and Drug Administration (FDA). The FDA has determined that such clearance or approval is not necessary. All the above immunostains were performed on paraffin embedded tissue. Appropriate positive and negative controls (where applicable) were run in parallel with the patient's specimen; these controls showed expected staining pattern, with acceptable intensity of staining. Immunohistochemical assays have not been validated on decalcified tissues. Results should be interpreted with caution given the raised possibility of false negativity on decalcified specimens. Professional Performing Location: [place] [address]. DEPARTMENT OF PATHOLOGY AND LABORATORY MEDICINE [place], [place] [address] BASIC METABOLIC PANEL Collected: 10/06/2017 Status: F Source: Pluck 2:59 PM SYSTEM REPOSITORY TYPE CODE TESTS RESULT OUT OF RANGE REFERENCE UNITS LAB NA3 137-145 mmol/L Sodium Normal 144 LAB K3 3.5-5.1 mmol/L Normal Potassium 5.1 LAB CL3 98-107 mmol/L Chloride Normal 101 LAB CO23 22-30 mmol/L Carbon Normal Dioxide 29 LAB ANIN3 NA Anion Gap 15 LAB GLUC3 70-100 mg/dL Glucose Normal 77 LAB BUN3 7-20 mg/dL High Urea Nitrogen 21 LAB CRET3 0.52-1.25 mg/dL Normal Creatinine 0.85 LAB GF3BR >60 mL/min eGFR > 60.0 LAB GF3WR >60 mL/min eGFR OTHER > 60.0 Result Comment: Source- MDRD equation with creatinine calibration to IDMS(NKDEP) eGFR not recommended for drug dose adjustment LAB CA3 8.4-10.2 mg/dL Normal Calcium 10.0 Performed By: #### BMP3 #### [facility] [address] [place] [phone] XA SPECIAL ANGIOGRAPHY Observed: 10/06/2017 Status: F Source: Pluck PROCEDURE 1:53 PM SYSTEM REPOSITORY Patient Name: NATALIO CASTELAN Special Procedures Exam Date/Time 10/06/2017 13:33:10 EDT Exam XA Special Angiography Procedure Ordering Physician TONY ACOSTA Accession Number [id number] Reason For Exam picc iv access surg Report EXAMINATION: Left-sided PICC line placement. CLINICAL INFORMATION: Difficult access. Surgery planned. IV access required. ANESTHESIA: Local anesthesia was maintained with Lidocaine. FLUOROSCOPY USED: 0.4 minutes, 0 cine run(s), and 1 fluoro spot(s) captured. PROCEDURE: The patient was placed supine on the angiographic table. The left arm was prepped and draped in the usual fashion. All elements of sterile technique were applied: cap, mask, sterile gown, proper hand hygiene including sterile gloves, a large sterile sheet, and hospital-approved cutaneous antisepsis at the site. Using ultrasound guidance (with a sterile probe cover and sterile gel) and a micropuncture set, (an image was saved to confirm vein patency and needle placement), the left basilic vein was cannulated. A wire was advanced without difficultly into the deep veins. Over this wire, the tract was dilated. A 5 [place] dual-lumen PICC line was then advanced into position. Under fluoroscopy, the distal tip was placed in the superior vena cava. There were no immediate complications. The patient tolerated the procedure without difficulty and was transferred to the recovery room in stable condition. IMPRESSION: 1. Successful placement of a left-sided PICC line as detailed above. The distal tip is in the SVC and it is ready for use. 2. This Power PICC is designed to tolerate power injections (as in CT). Report Dictated on Final Dictated: 10/06/2017 1:53 pm Dictating Physician: MD LOWRY JEFFREY Signed Date and Time: 10/06/2017 1:53 pm Signed by: MD LOWRY JEFFREY Transcribed Date and Time: 10/06/2017 1:53 CR CHEST PA/LAT Observed: 09/14/2017 Status: F Source: Pluck 1:19 PM SYSTEM REPOSITORY Patient Name: NATALIO CASTELAN Diagnostic Radiology Exam Date/Time 09/14/2017 13:18:13 EDT Exam CR Chest PA/LAT Ordering Physician LYNNE COONEY ANGELA SUZANNE Accession Number [id number] CPT4 Codes 19775 () Reason For Exam left renal mass Report Indication: Left renal mass. Frontal and lateral views of the chest are compared to the study dated 02/03/2017 and 02/12/2017. There is stable mild cardiomegaly. The mediastinum and pulmonary vascularity are within normal limits. Mild chronic appearing interstitial lung changes are visualized, similar to the prior study. There is mild scarring or subsegmental atelectasis in the left lung base. There is no evidence of pneumonia. There are degenerative changes of the thoracic spine. IMPRESSION: 1. No active intrathoracic disease. Stable mild cardiomegaly. No significant change. Report Dictated on Final Dictated: 09/14/2017 1:19 pm Dictating Physician: DO MANSFIELD ANTHONY Signed Date and Time: 09/14/2017 1:21 pm Signed by: DO MANSFIELD ANTHONY Transcribed Date and Time: 09/14/2017 1:19 HEMOGRAM Collected: 09/14/2017 Status: F Source: Pluck 1:08 PM SYSTEM REPOSITORY TYPE CODE TESTS RESULT OUT OF REFERENCE UNITS RANGE LAB IWBC 3.6-10.7 10*3/uL WBC 6.2 LAB RBC 3.80-5.20 10*6/uL RBC 4.24 LAB HGB 11.7-16.0 g/dL Hemoglobin 13.8 LAB HCT 35.0-47.0 % Hematocrit 40.9 LAB MCV 79.0-98.0 fL MCV 96.6 LAB MCH 26.0-34.0 pg MCH 32.6 LAB MCHC 32.0-36.0 % MCHC 33.8 LAB RDW 11.5-14.5 % RDW High 14.7 LAB PLT 140-440 10*3/uL Platelet 232 LAB MPV 7.4-10.4 fL MPV 8.4 Performed By: #### HEMOG, BMP3, ALB3, HA1C2 #### The performing lab is in the report. BASIC METABOLIC PANEL Collected: 09/14/2017 Status: F Source: Pluck 1:08 PM SYSTEM REPOSITORY TYPE CODE TESTS RESULT OUT OF REFERENCE UNITS RANGE LAB NA3 137-145 mmol/L Sodium 144 LAB K3 3.5-5.1 mmol/L Potassium 4.1 LAB CL3 98-107 mmol/L Chloride 101 LAB CO23 22-30 mmol/L Carbon High Dioxide 31 LAB ANIN3 Anion Gap 12 LAB GLUC3 70-100 mg/dL Glucose 82 LAB BUN3 7-20 mg/dL Urea Nitrogen 15 LAB CRET3 0.52-1.25 mg/dL Creatinine 0.77 LAB GF3BR >60 mL/min eGFR >60.0 LAB GF3WR >60 mL/min eGFR OTHER >60.0 Result Comment: Source- MDRD equation with creatinine calibration to IDMS(NKDEP) eGFR not recommended for drug dose adjustment LAB CA3 8.4-10.2 mg/dL Calcium 9.9 Performed By: #### HEMOG, BMP3, ALB3, HA1C2 #### The performing lab is in the report. ALBUMIN, SERUM Collected: 09/14/2017 Status: F Source: Pluck 1:08 PM SYSTEM REPOSITORY TYPE CODE TESTS RESULT OUT OF RANGE REFERENCE UNITS LAB ALB3 3.5-5.0 g/dL Albumin, 4.4 Serum Performed By: #### HEMOG, BMP3, ALB3, HA1C2 #### The performing lab is in the report. HEMOGLOBIN A1C Collected: 09/14/2017 Status: F Source: Pluck 1:08 PM SYSTEM REPOSITORY TYPE CODE TESTS RESULT OUT OF REFERENCE UNITS RANGE LAB A1C2 4.0-5.7 % High Hemoglobin A1C 6.1 Result Comment: --HgbA1C levels may not be accurate in patients who have renal disease, received recent blood transfusions, are anemic, or who have dyshemoglobinemia. LAB EAG2 mg/dL Estimated Avg Glucose 128 Performed By: #### HEMOG, BMP3, ALB3, HA1C2 #### The performing lab is in the report. CBC W/DIFF, AUTOMATED Collected: 07/06/2017 Status: F Source: [place] 10:10 AM [facility] REPOSITORY TYPE CODE TESTS RESULT OUT OF RANGE REFERENCE UNITS LAB L100.1000 4.4-11.0 K/mm3 Normal WBC 5.2 LAB L100.1200 4.2-5.4 M/mm3 Normal RBC 4.28 LAB L100.1300 12.0-15.0 g/dl Normal HGB 13.3 LAB L100.1400 37-47 % Normal HCT 41.5 LAB L100.1500 81-99 fL Normal MCV 97.0 LAB L100.1600 27.0-32.0 pg Normal MCH 31.1 LAB L100.1700 32-36 g/gl Normal MCHC 32.0 LAB L100.1810 11.6-14.6 % Normal RDW CV 14.5 LAB L100.1820 35.1-43.9 fl High RDW SD 51.4 LAB L100.1900 150-450 K/mm3 Normal PLT 212 LAB L100.2000 6.2-12.0 fl Normal MPV 9.8 LAB L100.2100 47-70 % Normal NEUT% 51.9 LAB L100.2200 19-41 % Normal LY% 35.7 LAB L100.2300 0-10 % Normal MONO% 9.5 LAB L100.2400 0-5 % Normal EO% 2.3 LAB L100.2500 0-1 % Normal BASO% 0.4 LAB L100.2550 0.0-0.9 % Normal IM GRAN % 0.200 Result Comment: IG% - Immature Granulocytes (promyelocytes, myelocytes and metamyelocytes) > 1% indicates that a LEFT SHIFT is Present. LAB L100.2620 2.0-7.7 X10 3/uL Normal Absolute Neut 2.7 LAB L100.2720 0.83-4.51 X10 3/ul Normal Absolute Lymph 1.84 Performed By: #### L100.0100 #### [facility] [address] [place], [address] BASIC METABOLIC Collected: 07/06/2017 Status: F Source: [place] PROFILE (BMP) 10:10 AM [facility] REPOSITORY TYPE CODE TESTS RESULT OUT OF RANGE REFERENCE UNITS LAB L501.0100 74-106 mg/dL Normal GLU 103 Result Comment: Fasting Glucose result from 100 to 125 mg/dL suggests IMPAIRED HOMEOSTASIS per A.D.A. criteria. Please note revised GLUCOSE reference range effective 2017. LAB L501.1000 7-18 mg/dL Normal BUN 15 LAB L501.1100 0.55-1.02 mg/dL Normal CREAT,SERUM 0.74 Result Comment: The validity of the calculated GFR AND GFRAA in patients over 70 years has not been determined. Clinical correlation is essential. LAB L501.1110 >60 mL/min Normal EST GFR 83 Result Comment: Non- GFR Calc LAB L501.1115 >60 mL/min Normal EST GFR - AA 101 Result Comment: GFR Calc LAB L501.1300 10-20 RATIO High BUN/CRE 20.2 LAB L501.2200 8.5-10.1 mg/dL CA Normal 9.4 LAB L501.5300 136-145 mmol/L NA Normal 141 LAB L501.5600 3.5-5.1 mmol/L K Normal 4.2 LAB L501.5900 98-107 mmol/L CL Normal 103 LAB L501.6100 21.0-32.0 mmol/L Normal CO2 31.0 LAB L501.6200 5-15 Normal GAP 7 Performed By: #### L500.2500, L500.4100, L501.9520 #### [facility] [address] [place], [address] LIPID PROFILE Collected: 07/06/2017 Status: F Source: [place] 10:10 AM [facility] REPOSITORY TYPE CODE TESTS RESULT OUT OF RANGE REFERENCE UNITS LAB L501.4900 200 mg/dL Normal CHOL 185 Result Comment: <200 mg/dL Desirable 200-240 mg/dL Borderline >240 mg/dL High Risk LAB L501.5000 mg/dL Normal TRIG 160 Result Comment: The drugs N-Acetylcysteine and Metamizole may falsely depress this assay. Serum Triglycerides Reference Interval Normal <150 mg/dL Borderline high 150 - 199 mg/dL High 200 - 499 mg/dL Very High > or = 500 mg/dL LAB L501.6400 mg/dL Normal HDL 46 Result Comment: The drugs N-Acetylcysteine and Metamizole may falsely depress this assay. Reference Range HDL <40 mg/dL Low HDL Cholesterol HDL >or= 60 mg/dL High HDL Cholesterol LAB L501.6500 0-130 mg/dL Normal LDL 107 LAB L501.6600 5-40 mg/dL Normal VLDL 32 Performed By: #### L500.2500, L500.4100, L501.9520 #### [facility] [address] [place], [place], [address] THYROID STIM HORMONE Collected: 07/06/2017 Status: F Source: [place] (TSH) 10:10 AM [facility] REPOSITORY TYPE CODE TESTS RESULT OUT OF RANGE REFERENCE UNITS LAB L501.9520 0.358-3.74 uIU/mL Normal TSH 2.59 Performed By: #### L500.2500, L500.4100, L501.9520 #### [facility] [address] [place], [place], [address] VITAMIN D,25 HYDROXY Collected: 07/06/2017 Status: F Source: [place] 10:10 AM [facility] REPOSITORY TYPE CODE TESTS RESULT OUT OF RANGE REFERENCE UNITS LAB L506.1000 19.95-100.01 ng/mL Normal Vitamin D 40.2 25-OH Result Comment: Vitamin D 25(OH) Status Range Deficiency <20 ng/mL (50nmol/L) Insuffciency 20 - 30 ng/mL (50 - 75 nmol/L) Sufficiency 30 - 100 ng/mL (75 - 250 nmol/L) Toxicity >100 ng/mL (>250 nmol/L) Performed By: #### L506.1000 #### [facility] [address] [place], [place], [address] CHIROPRACTIC REPORT Observed: 06/27/2017 Status: F Source: [place] 11:13 AM [facility] REPOSITORY [facility] [address] [place] [address] OFFICE VISIT Date of Service: 04/20/17 MR#: [id number] Acct: [id number] Name: NATALIO CASTELAN Rep #: [id number] : 1950 Provider: Pily Rod D.C. Age/Sex: 66/F Location: [facility] Status: Signed Intake Vital Signs04/20/17 Height 5 ft 4 in 04/20/17 Weight: 318 lb 04/20/17 Body Mass Index (BMI) 54.6 Intake Visit Reasons: 1 W FU Chief Complaint: Neck AND Low back pain Is patient in pain?: Yes Allergies codeine Allergy (Verified 02/19/16 10:32) Shortness of breath Penicillins [PCN] Allergy (Verified 02/19/16 10:32) Shortness of breath Sulfa (Sulfonamide Antibiotics) Allergy (Verified 02/19/16 10:32) Swelling Medications Citalopram [Celexa] 20 mg PO DAILY 10/01/14 [History Confirmed 02/19/16] BuPROPion (SR) [Wellbutrin Sr] 150 mg PO BID 12/30/15 [History Confirmed 02/19/16] Oxycodone [Oxyir] 5 - 10 mg PO Q4H PRN PRN #90 tab 01/22/16 [Rx Confirmed 02/19/16] Senna/Docusate Sodium [Senokot-S] 2 tab PO BID 10 Days tab 01/22/16 [Rx Confirmed 02/19/16] Aspirin 325 mg PO DAILY@0800 02/19/16 [History Confirmed 02/19/16] PFSH Medical History Segmental and somatic dysfunction of cervical region (Acute) Segmental and somatic dysfunction of thoracic region (Acute) Segmental and somatic dysfunction of lumbar region (Acute) Social History Smoking Status: Never smoker HPI 1 W FU: Chief Complaint: Neck AND low back pain Visit Number: 7 Details: NATALIO CASTELAN is a 66 year old F who presents with decreasing neck and low back pain. She states that recently she has been experiencing low back pain, especially first thing in the morning. Today Natalio rates her pain a 5/10; Natalio is also complaining of neck pain and ringing ears. Her neck pain has decreased and she has been able to sleep better at night. Her low back pain is described as tight, sore and sharp causing pain radiating into the groin at times. The patient denies any numbness or tingling. Location: Neck AND low back pain Duration: daily Aggravating or associated factors: ADLs, walking Relieving factors: chiropractic Pain Quality: aching, dull, sharp ROS [facility] Reports system reviewed and no additional complaints, except as docu, Reports as per HPI, Reports abnormal walking, Reports joint pain Neuro Yes abnormal walking Exam Musc General: Yes joint tenderness (C2, C6, T4, L5); no normal posture (antalgic) or normal gait (antalgic) Cervical Spine: loss of normal cervical lordosis, cervical spasm, cervical spinal tenderness at C2, at C5 and at C6 Thoracic/Lumbar Spine: thoracic spinal tenderness (T4, T5, T6), lumbar spinal tenderness at L5 and at L4, thoraco-lumbar spasm on the right greater than left Office Procedures Chiropractic Treatments Procedures Manipulation: 3-4 regions (C2, C6, T5, L5) Assessment AND Plan 1. Segmental and somatic dysfunction of cervical region M99.01 Orders Orders: 2. Segmental and somatic dysfunction of thoracic region M99.02 Orders Orders: 3. Segmental and somatic dysfunction of lumbar region M99.03 Orders Orders: Plan Detail Goals Decrease pain and increase ability to stand/walk longer Barriers Weight Follow Up 1x/wk 06/27/17 1113 <Electronically signed by Pily Rod D.C.> Date Pily Rod D.C. Cosigner Signature: Date (if applicable) CC: CHEST PA AND LATERAL Observed: 05/25/2017 Status: F Source: [place] 12:54 PM [facility] REPOSITORY [facility] Imaging Services [address] [place] [address] Chest PA and Lateral MR#: [id number] Acct: [id number] Name: NATALIO CASTELAN Rep #: [id number] : 1950 F 67 From: Miguel Orr MD PCP: Gregory Foss MD Status: REG CLI Study: Chest PA and Lateral Date of Exam: 05/25/17 Exam# [id number] Ordering Dr: MANUELA COONEY STUDY: X-RAY CHEST REASON FOR EXAM: Female, 67 years old. History of left renal mass. TECHNIQUE: PA and lateral views of the chest. COMPARISON: None. FINDINGS: There is elevation of the right hemidiaphragm. Mild increased markings at the lung bases slightly more prominent on the left side suggestive of a possible scarring. There is blunting of the left costophrenic angle. There is borderline cardiomegaly. Normal mediastinum and efrain. Normal visualized pulmonary arteries. There is atherosclerotic tortuosity of the aortic arch and descending thoracic aorta. There are diffuse degenerative changes of the visualized thoracic spine. Normal visualized ribs, clavicles, and shoulders. There is no demonstrated abnormality of the visualized soft tissue structures of the upper abdomen. RAD/Chest PA and Lateral IMPRESSION: Elevation of the right hemidiaphragm. Increased markings at the lung bases suggestive of bibasilar scarring. There is blunting of the left costophrenic angle. Electronically Signed: Miguel Orr MD at 8:54 EST Tel [phone], Service support , CC: MANUELA COONEY; Gregory Foss MD Meter Reader Chief: Signed BASIC METABOLIC PANEL Collected: 05/24/2017 Status: F Source: [place] 10:18 AM SYSTEM REPOSITORY TYPE CODE TESTS RESULT OUT OF RANGE REFERENCE UNITS LAB NA3 137-145 mmol/L Sodium Normal 141 LAB K3 3.5-5.1 mmol/L Normal Potassium 4.3 LAB CL3 98-107 mmol/L Chloride Normal 102 LAB CO23 22-30 mmol/L High Carbon Dioxide 34 LAB ANIN3 Anion Normal Gap 5 LAB GLUC3 70-100 mg/dL Glucose Normal 90 LAB BUN3 7-20 mg/dL Urea Normal Nitrogen 12 LAB CRET3 0.52-1.25 mg/dL Normal Creatinine 0.80 LAB GF3BR >60 mL/min eGFR Normal >60.0 LAB GF3WR >60 mL/min eGFR Normal OTHER >60.0 Result Comment: Source- MDRD equation with creatinine calibration to IDMS(NKDEP) eGFR not recommended for drug dose adjustment LAB CA3 8.4-10.2 mg/dL Normal Calcium 10.2 Performed By: #### BMP3 #### [place] [address] [place] [address] CT ABDOMEN/PELVIS W/ Observed: 05/16/2017 Status: F Source: [place] CONTRAST 12:33 PM SYSTEM REPOSITORY Patient Name: NATALIO CASTELAN CT Exam Date/Time 05/16/2017 11:32:[address] Abdomen/Pelvis w/ IV Contrast (IV Onl Ordering Physician MD SARI ESTEBAN Gelacio Accession Number [id number] CPT4 Codes 13558 (CT Abdomen/Pelvis w/ IV Contrast (IV Onl), Q9967 () Reason For Exam renal mass Report CT ABDOMEN AND PELVIS WITH CONTRAST EXAM DATE AND TIME: 05/16/2017 11:32 AM EST INDICATION: 67 years Female with renal mass COMPARISON: 02/12/2017 TECHNIQUE: Transaxial sequence through the abdomen and pelvis with 3 mm reconstruction following oral contrast with dynamic intravenous infusion of 75 mL of 370 mg% contrast media. Coronal and sagittal reconstructions included. Dose reduction was employed with automated exposure control. FINDINGS: Chest base: Normal. Liver: Generalized diminished attenuation as compared to the spleen, corresponding to diffuse fatty infiltration. No focal lesion. Biliary tree: Normal caliber. The gallbladder is nondistended. Spleen: Normal. Adrenals: Mild left adrenal thickening. No focal adrenal lesion. Pancreas: Normal. Kidneys: No hydronephrosis. Multiple changes are seen in the superior pole of the left kidney, with improved perinephric stranding and soft tissue gas and compared to the previous study. Small amount of scarring is seen surrounding the upper pole of the left kidney. No focal mass is identified. No urinary calculus. The left renal vein is patent. Free fluid: None. Retroperitoneal/mesenteric lymphadenopathy: None. Aorta: Normal caliber.. Bowel: Normal caliber. Diverticuli are noted throughout the sigmoid and descending colon. No stenotic lesion, mucosal thickening or adjacent fat stranding is noted to suggest diverticulitis. Abdominal wall: Normal. Pelvic organs/viscera: No mass identified. Pelvic lymphadenopathy: None. Osseous structures: Degenerative changes are seen in the visualized spine. There is approximately 2 mm of anterolisthesis of L4 on L5. IMPRESSION: 1. Postsurgical changes in the left kidney with scarring. There has been interval improvement in the previously seen stranding and soft tissue gas within the surgical bed. No evidence of a residual/recurrent mass. 2. Mild left adrenal thickening, which may be postoperative. No focal adrenal mass is seen. 3. Diverticulosis.. Report Dictated on Final Dictated: 05/16/2017 12:33 pm Dictating Physician: MD LANE NICHOLAS Signed Date and Time: 05/16/2017 12:38 pm Signed by: MD LANE NICHOLAS Transcribed Date and Time: 05/16/2017 12:33 CREATININE, BEDSIDE Collected: 05/16/2017 Status: F [facility] REPOSITORY TYPE CODE TESTS RESULT OUT OF RANGE REFERENCE UNITS LAB CREB 0.6-1.4 mg/dL Normal Creatinine, 0.8 Bedside Result Comment: Performed by [facility] CLIA ID: [id number] [place], [place] Performed By: #### CREB #### [address] [address] ALLERGIES ALLERGIES DATE TYPE / CODE NAME / CODE REACTION SEVERITY SOURCE 02/19/2016 Drug Penicillins/F Shortness of Unknown [place] [facility] Allergy/4160 [id number](RXN [facility] 17530(SNOMED ORM) Repository CT) 02/19/2016 Drug Sulfa Swelling Unknown [place] [facility] Allergy/4160 (Sulfonamide Hospital 06882(SNOMED Antibiotics)/ Repository CT) [id number](RX NORM) 02/19/2016 Drug codeine/F0060 Shortness of Unknown [place] [facility] Allergy/4160 54352(RXNORM) [facility] 39532(SNOMED Repository CT) ENCOUNTERS ENCOUNTERS ADMIT/DISCHARGE ACCOUNT NUMBER ADMITTING ENCOUNTER LOCATION SOURCE CLASS 04/17/2018 [id number] Ambulatory [facility] Repository 04/13/2018 [id number] Ambulatory [facility] ding:LAB Repository 03/29/2018 [id number] Ambulatory [facility] ding:PT Repository 03/26/2018 [id number] Ambulatory [facility] ding:MRI Repository 03/08/2018 [id number] Ambulatory [facility] ding:US Repository 01/16/2018 [id number] [facility] Repository 01/12/2018 [id number] Ambulatory [facility] Repository 01/12/2018 [id number] [facility] Repository 12/14/2017 [id number] Ambulatory [facility] Repository 11/27/2017 [id number] Ambulatory [facility] Repository 11/27/2017 [id number] Ambulatory [facility] Repository 11/23/2017 [id number] Ambulatory [facility] Repository 11/22/2017 [id number] Ambulatory [facility] Repository 11/14/2017 [id number] Ambulatory [facility] ding:MFPLAB Repository 10/19/2017 [id number] Ambulatory [facility] Repository 10/11/2017 [id number] [facility]patient [facility] Encounter 4ERoom: System [id number]: Repository [id number] 10/06/2017 [id number] Ambulatory [facility] Repository 10/06/2017 [id number] Ambulatory [facility] Repository 10/06/2017 [id number] Ambulatory [facility] Repository 09/14/2017 [id number] Ambulatory [facility] Repository 09/14/2017 [id number] [facility] Repository 09/14/2017 [id number] Ambulatory [facility] Repository 08/04/2017 [id number] [facility] Repository 07/12/2017 [id number] [facility] Repository 07/06/2017 [id number] Ambulatory [facility] ding:MFPLAB Repository 05/25/2017 [id number] Ambulatory [place] [facility] ding:RAD Repository 05/24/2017 [id number] Ambulatory [facility] Repository 05/24/2017 [id number] Ambulatory [facility] Repository 05/16/2017 [id number] Ambulatory [facility] Repository 05/04/2017 [id number] Ambulatory BMSBuilding: [place] [facility] Repository 04/20/2017/04/20/20 [id number] Ambulatory BMSBuilding: [place] 17 BMS.[facility] Repository PAYERS PAYERS ENCOUNTER GUARANTOR PAYER SUBSCRIBER SOURCE 04/17/2018 Natalio D MastDOB: Primary Natalio D MastDOB: [facility] Insurance:MedicarePol [id number] icy Number: Effective Repository [address] [place] [address], Date: [place] [address]Ffm: () 04/17/2018 Secondary Natalio D MastDOB: [facility] Insurance:MedicarePol [id number] System icy Number: Effective Repository Date: 04/17/2018 Tertiary [facility] D [facility] Insurance:MedicaidPol [id number] System icy Number: Effective Repository Date: 04/13/2018 NATALIO D [id number] Primary NATALIO D MASTDOB: [place] TR Insurance:MEDICARE [id number] [address]Uiw: Number: Repository [id number] () Date:2018-04-13 04/13/2018 Secondary NATALIO D MASTDOB: [place] Insurance:MEDICAIDPol [id number] Community icy Number: Hospital [id number] Repository Date:2018-04-13 04/13/2018 Tertiary NOT GIVENUNK [place] Insurance:SELF PAY [facility] Number: Effective Repository Date:2018-04-13 03/29/2018 NATALIO D [id number] Primary NATALIO D MASTDOB: [place] Insurance:MEDICARE [id number] [address]Tnw: Number: Repository [id number] (HP) Date:2016-04-14 03/29/2018 Secondary NATALIO D MASTDOB: [place] Insurance:MEDICAIDPol [id number] Community icy Number: Hospital [id number] Repository Date:2018-02-12 03/29/2018 Tertiary NOT GIVENUNK [place] Insurance:SELF PAY [facility] Number: Effective Repository Date:2018-03-05 03/26/2018 NATALIO D [id number] Primary NATALIO D MASTDOB: [place] TR Insurance:MEDICARE [id number] [address]Tbx: Number: Repository [id number] (HP) Date:2018-03-22 03/26/2018 Secondary NATALIO D MASTDOB: [place] Insurance:MEDICAIDPol [id number] access hospitaly Number: Hospital [id number] Repository Date:2018-03-22 03/26/2018 Tertiary NOT GIVENUNK [place] Insurance:SELF PAY [facility] Number: Effective Repository Date:2018-03-22 03/08/2018 NATALIO D [id number] Primary NATALIO D MASTDOB: [place] Insurance:MEDICARE [id number] [address]Fnt: Number: Repository [id number] (HP) Date:2018-02-22 03/08/2018 Secondary NATALIO D MASTDOB: [place] Insurance:MEDICAIDPol [id number] access hospitaly Number: [facility] [id number] Repository Date:2018-02-22 03/08/2018 Tertiary NOT GIVENUNK [place] Insurance:SELF PAY [facility] Number: Effective Repository Date:2018-02-22 01/16/2018 Natalio D MastDOB: Primary Natalio D MastDOB: [facility] Insurance:MedicarePol [id number] icy Number: Effective Repository [address] [place] [address], Date:2016-04-14 [place] [address]Aej: () 01/16/2018 Secondary Natalio D MastDOB: [facility] Insurance:MedicarePol [id number] System icy Number: Effective Repository Date:2016-04-14 01/16/2018 Tertiary Natalio D MastDOB: [facility] Insurance:MedicaidPol [id number] System icy Number: Effective Repository Date: 01/12/2018 Natalio D MastDOB: Primary Natalio D MastDOB: [facility] Insurance:MedicarePol [id number] System [facility] [address] icy Number: Effective Repository [address], Date:2016-11-12 [place] [address]Ops: () 01/12/2018 Secondary Natalio D MastDOB: [facility] Insurance:MedicarePol [id number] System icy Number: Effective Repository Date:2016-04-14 01/12/2018 Tertiary Natalio D MastDOB: [facility] Insurance:MedicaidPol [id number] System icy Number: Effective Repository Date: 01/12/2018 Natalio D MastDOB: Primary Natalio D MastDOB: [facility] Insurance:MedicarePol [id number] System [facility] [address] icy Number: Effective Repository [address], Date:2016-11-12 [place] [address]Dxe: () 01/12/2018 Secondary Natalio D MastDOB: [facility] Insurance:MedicarePol [id number] System icy Number: Effective Repository Date:2016-04-14 01/12/2018 Tertiary Natalio D MastDOB: [facility] Insurance:MedicaidPol [id number] System icy Number: Effective Repository Date: 12/14/2017 Natalio D MastDOB: Primary Natalio D MastDOB: [facility] Insurance:MedicarePol [id number] System [facility] [address] icy Number: Effective Repository [address], Date:2016-11-12 [place] [address]Yof: () 12/14/2017 Secondary Natalio D MastDOB: [facility] Insurance:MedicarePol [id number] System icy Number: Effective Repository Date:2016-04-14 12/14/2017 Tertiary Natalio D MastDOB: [facility] Insurance:MedicaidPol [id number] System icy Number: Effective Repository Date: 11/27/2017 Natalio D MastDOB: Primary Natalio D MastDOB: [facility] Insurance:MedicarePol [id number] System [facility] [address] icy Number: Effective Repository [address] [facility], Date:2016-04-14 [place] [address]Jit: () 11/27/2017 Secondary Natalio D MastDOB: [facility] Insurance:MedicarePol [id number] System icy Number: Effective Repository Date:2016-04-14 11/27/2017 Tertiary Natalio D MastDOB: [facility] Insurance:MedicaidPol [id number] System icy Number: Effective Repository Date: 11/27/2017 Natalio D MastDOB: Primary Natalio D MastDOB: [facility] Insurance:MedicarePol [id number] System [facility] [address] icy Number: Effective Repository [address] [facility], Date:2016-04-14 [place] [address]Kpt: () 11/27/2017 Secondary Natalio D MastDOB: [facility] Insurance:MedicarePol [id number] System icy Number: Effective Repository Date:2016-04-14 11/27/2017 Tertiary Natalio D MastDOB: [facility] Insurance:MedicaidPol [id number] System icy Number: Effective Repository Date: 11/23/2017 Natalio D MastDOB: Primary Natalio D [facility]: [facility] Insurance:MedicarePol [id number] System [facility] [address] icy Number: Effective Repository [address] [facility], Date:2016-11-12 [place] [address]Zsz: () 11/23/2017 Secondary Natalio D MastDOB: [facility] Insurance:MedicarePol [id number] System icy Number: Effective Repository Date:2016-04-14 11/23/2017 Tertiary Natalio D MastDOB: [facility] Insurance:MedicaidPol [id number] [facility] icy Number: Effective Repository Date: 11/22/2017 Natalio D MastDOB: Primary Natalio D MastDOB: [facility] Insurance:MedicarePol [id number] icy Number: Effective Repository [address] [facility], Date:2016-04-14 [place] [address]Vrx: () 11/22/2017 Secondary Natalio D MastDOB: [facility] Insurance:MedicarePol [id number] [facility] icy Number: Effective Repository Date:2016-04-14 11/22/2017 Tertiary Natalio D MastDOB: [facility] [id number] [facility] icy Number: Effective Repository Date: 11/14/2017 NATALIO [id number] TR Primary NATALIO MASTDOB: [place] [address] [place] [address], Insurance:MEDICARE [id number] [facility] [address]Fbc: PART A [facility] Number: Repository () [id number] Date:2017-11-14 11/14/2017 Secondary NATALIO MASTDOB: [place] [facility] [id number] [facility] icy Number: Hospital [id number] Repository Date:2017-11-14 11/14/2017 Tertiary NOT GIVENUNK [place] Insurance:SELF PAY [facility] Number: Effective Repository Date:2017-11-14 10/19/2017 Natalio D MastDOB: Primary Natalio D MastDOB: [facility] Insurance:MedicarePol [id number] icy Number: Effective Repository [address] [facility], Date:2016-11-12 [place] [address]Btu: () 10/19/2017 Secondary Natalio D MastDOB: [facility] Insurance:MedicarePol [id number] [facility] icy Number: Effective Repository Date:2016-04-14 10/19/2017 Tertiary Natalio D MastDOB: [facility] Insurance:MedicaidPol [id number] System icy Number: Effective Repository Date: 10/11/2017 Natalio D MastDOB: Primary Natalio D MastDOB: [facility] Insurance:MedicarePol [id number] System [facility] [address] icy Number: Effective Repository [address] [facility], Date:2016-11-12 [place] [address]Rjp: () 10/11/2017 Secondary Natalio D MastDOB: [facility] Insurance:MedicarePol [id number] System icy Number: Effective Repository Date:2016-04-14 10/11/2017 Tertiary Natalio D MastDOB: [facility] Insurance:MedicaidPol [id number] System icy Number: Effective Repository Date: 10/06/2017 Natalio D MastDOB: Primary Natalio D [facility]: [facility] Insurance:MedicarePol [id number] System [facility] [address] icy Number: Effective Repository [address] [facility], Date:2016-11-12 [place] [address]Qms: () 10/06/2017 Secondary Natalio D MastDOB: [facility] Insurance:MedicarePol [id number] System icy Number: Effective Repository Date:2016-04-14 10/06/2017 Tertiary Natalio D MastDOB: [facility] Insurance:MedicaidPol [id number] System icy Number: Effective Repository Date: 10/06/2017 Natalio D MastDOB: Primary Natalio D [facility]: [facility] Insurance:MedicarePol [id number] System [facility] [address] icy Number: Effective Repository [address] [facility], Date:2016-11-12 [place] [address]Pye: () 10/06/2017 Secondary Natalio D MastDOB: [facility] Insurance:MedicarePol [id number] System icy Number: Effective Repository Date:2016-04-14 10/06/2017 Tertiary Natalio D MastDOB: [facility] Insurance:MedicaidPol [id number] System icy Number: Effective Repository Date: 10/06/2017 Natalio D MastDOB: Primary Natalio D MastDOB: [facility] Insurance:MedicarePol [id number] [facility] [address] icy Number: Effective Repository [address] [facility], Date:2016-11-12 [place] [address]Drx: () 10/06/2017 Secondary Natalio D MastDOB: [facility] Insurance:MedicarePol [id number] System icy Number: Effective Repository Date:2016-04-14 10/06/2017 Tertiary Natalio D MastDOB: [facility] Insurance:MedicaidPol [id number] System icy Number: Effective Repository Date: 09/14/2017 Natalio D MastDOB: Primary Natalio D MastDOB: [facility] Insurance:MedicarePol [id number] [facility] [address] icy Number: Effective Repository [address] [facility], Date:2016-04-14 [place] [address]Adj: () 09/14/2017 Secondary Natalio D MastDOB: [facility] Insurance:MedicaidPol [id number] System icy Number: Effective Repository Date: 09/14/2017 Natalio D MastDOB: Primary Natalio D MastDOB: [facility] Insurance:Self [id number] System [facility] [address] PayPolicy Number: Repository [address] [facility], Effective Date: [place] [address]Fjq: () 09/14/2017 Natalio D MastDOB: Primary Natalio D MastDOB: [facility] Insurance:MedicarePol [id number] icy Number: Effective Repository [address] [facility], Date:2016-04-14 [place] [address]Cto: () 09/14/2017 Secondary Natalio D MastDOB: [facility] Insurance:MedicarePol [id number] System icy Number: Effective Repository Date:2016-04-14 09/14/2017 Tertiary Natalio D MastDOB: [facility] Insurance:MedicaidPol [id number] System icy Number: Effective Repository Date: 08/04/2017 Natalio D MastDOB: Primary Natalio D MastDOB: [facility] Insurance:MedicarePol [id number] [facility] icy Number: Effective Repository [address], Date:2016-04-14 [place] [address]Yrp: () 08/04/2017 Secondary Natalio D MastDOB: [facility] Insurance:MedicarePol [id number] System icy Number: Effective Repository Date:2016-04-14 08/04/2017 Tertiary Natalio D MastDOB: [facility] Insurance:MedicaidPol [id number] System icy Number: Effective Repository Date: 07/12/2017 Natalio D MastDOB: Primary Natalio D MastDOB: [facility] Insurance:MedicarePol [id number] [facility] [address] icy Number: Effective Repository [address], Date:2016-04-14 [place] [address]Plj: () 07/12/2017 Secondary Natalio D MastDOB: [facility] Insurance:MedicarePol [id number] System icy Number: Effective Repository Date:2016-04-14 07/12/2017 Tertiary Natalio D MastDOB: [facility] Insurance:MedicaidPol [id number] [facility] icy Number: Effective Repository Date: 07/06/2017 NATALIO [id number] TR Primary NATALIO MASTDOB: [place] [address] [place] [address], Insurance:MEDICARE [id number] [facility] [address]Jtf: PART A [facility] Number: Repository () [id number] Date:2017-07-06 07/06/2017 Secondary NATALIO MASTDOB: [place] Insurance:MEDICAIDPol [id number] [facility] icy Number: Hospital [id number] Repository Date:2017-07-06 07/06/2017 Tertiary NOT GIVENUNK [place] Insurance:SELF PAY [facility] Number: Effective Repository Date:2017-07-06 05/25/2017 NATALIO [id number] TR Primary NATALIO MASTDOB: [place] [facility] Insurance:MEDICARE [id number] [facility] [address]Rjs: PART A [facility] Number: Repository () [id number] Date:2017-05-25 05/25/2017 Secondary NATALIO MASTDOB: [place] Insurance:[place]ICAID[place] [id number] [facility] icy Number: Hospital [id number] Repository Date:2017-05-25 05/25/2017 Tertiary NOT GIVENUNK [place] Insurance:SELF PAY [facility]: Effective Repository Date:2017-05-25 05/24/2017 Natalio D MastDOB: Primary Natalio D MastDOB: [facility] Insurance:MedicarePol [id number] [facility] icy Number: Effective Repository [address], Date:2016-04-14 [place] [address]Omh: () 05/24/2017 Secondary Natalio D MastDOB: [facility] Insurance:MedicarePol [id number] [facility] icy Number: Effective Repository Date:2016-04-14 05/24/2017 Tertiary Natalio D MastDOB: [facility] Insurance:MedicaidPol [id number] System icy Number: Effective Repository Date: 05/24/2017 Natalio D MastDOB: Primary Natalio D MastDOB: [facility] Insurance:MedicarePol [id number] Mayville [facility] Center icy Number: Effective Repository [address], Date:2016-04-14 [place] [address]Bml: () 05/24/2017 Secondary Natalio D MastDOB: [facility] Insurance:MedicarePol [id number] System icy Number: Effective Repository Date:2016-04-14 05/24/2017 Tertiary Natalio D MastDOB: [facility] Insurance:MedicaidPol [id number] System icy Number: Effective Repository Date: 05/16/2017 Natalio D MastDOB: Primary Natalio D MastDOB: [facility] Insurance:MedicarePol [id number] Mayville Medical Center icy Number: Effective Repository [address] [place] [address], Date:2016-04-14 [place] [address]Mxe: () 05/16/2017 Secondary Natalio D MastDOB: [facility] Insurance:MedicaidPol [id number] System icy Number: Effective Repository Date: 05/04/2017 NATALIO [id number] Primary NATALIO MASTDOB: [place] [facility] Insurance:MEDICARE [id number] [facility] [address]Joc: Number: Repository [id number] () Date:2017 05/04/2017 Secondary NATALIO MASTDOB: [place] Insurance:MEDICAID[place] [id number] Community icy Number: Hospital [id number] Repository Date:2017 05/04/2017 Tertiary NOT GIVENUNK [place] Insurance:SELF PAY [facility] Number: Effective Repository Date:2017 04/20/2017 NATALIO [id number] Primary NATALIO MASTDOB: [place] [facility] Insurance:MEDICARE [id number] A [facility] [address]Tdd: Number: Repository [id number] () Date:2017-04-15 04/20/2017 Secondary NATALIO MASTDOB: [place] Insurance:MEDICAIDPol [id number] [facility] icy Number: Hospital [id number] Repository Date:2017-04-15 04/20/2017 Tertiary NOT GIVENUNK [place] Insurance:SELF PAY [facility] Effective Repository Date:2017-04-15
== END ==
PROVIDERS: Family Provider Family Medicine; PCP Family Medicine; Referring Provider Registered Nurse Nephrology; Visit Provider Registered Nurse Nephrology
DX: E61.9 Deficiency of nutrient element, unspecified (principal); E66.01 Morbid (severe) obesity due to excess calories; K90.9 Intestinal malabsorption, unspecified; R53.83 Other fatigue; E55.9 Vitamin D deficiency, unspecified; Z68.42 Body mass index [BMI] 45.0-49.9, adult
CPT/HCPCS: 36415; 80053; 80061; 82306; 82607; 82728; 82746; 83540; 83735; 84630; 85027

== ENCOUNTER 2018-08-22 05:29 | Inpatient (IN) | payer MEDICARE, MEDICAID, SELFPAY ==
[2018-08-06 11:09] VITALS: BP 122/74; PULSE 75; RESP 16; TEMP 36.8; O2SAT 96; BMI 41.8
--- NOTE | 2018-08-06 11:58 | SDCEKG_ITS ---
Test Reason : Blood Pressure : / mmHG Vent. Rate : 059 BPM Atrial Rate : 059 BPM P-R Int : 194 ms QRS Dur : 096 ms QT Int : 442 ms P-R-T Axes : 024 -38 010 degrees QTc Int : 437 ms Sinus bradycardia Left axis deviation Nonspecific ST abnormality Poor R-Wave Progression Abnormal ECG Confirmed by VALERIE MYERS, RAJIV ([id number]), make up editor PANCHITO AMATO ([id number]) on 08/08/2018 1:57:04 PM Referred By: Kishor Oneal Confirmed By:RAJIV PADILLA MD
[2018-08-06 12:32] LABS: Absolute Neutrophil Count 2.4 X10^3/uL (2.0-7.7); Basophil# 0.01 X10^3/uL; Basophil% 0.2 % (0-1); Hematocrit 41.7 % (37-47); Hemoglobin 13.2 g/dl (12.0-15.0); Lymphocyte % 38.5 % (19-41); Mean Corp Hgb Conc 31.7 g/gl (32-36); Mean Corpuscular Hgb 31.5 pg (27.0-32.0); Mean Corpuscular Volume 99.5 fL (81-99); Mean Platelet Vol. 10.1 fl (6.2-12.0); Monocyte# 0.48 X10^3/uL; Monocyte% 9.7 % (0-10); Neutrophil # 2.44 X10^3/uL (2.7-7.7); Neutrophil % 49.4 % (47-70); Platelet Count 217 K/mm3 (150-450); RBC Distribution Width CV 13.9 % (11.6-14.6); RBC Distribution Width SD 50.1 fl (35.1-43.9); Red Blood Count 4.19 M/mm3 (4.2-5.4); White Blood Count 4.9 K/mm3 (4.4-11.0)
[2018-08-06 12:37] LABS: POSITIVE COUNT NO; POSITIVE DIFFERENTIAL NO; POSITIVE MORPHOLOGY NO
[2018-08-06 12:55] LABS: Anion Gap 3 (5-15); BUN 12 mg/dL (7-18); BUN/Creat Ratio 16.6 RATIO (10-20); Calcium,Total 8.9 mg/dL (8.5-10.1); Chloride 109 mmol/L (98-107); Creatinine, Serum 0.72 mg/dL (0.55-1.02); EST Glomerular Filtration Rate 86 mL/min (>60); Est Glom Filt Rate - Afr Amer 104 mL/min (>60); Estimated Creatinine Clearance 47.14 ml/min; Glucose 108 mg/dL (74-106); Potassium 3.6 mmol/L (3.5-5.1); Sodium Level 142 mmol/L (136-145)
--- NOTE | 2018-08-06 13:02 | HP.PCM_ITS ---
History and Physical DATE OF SURGERY: 08/22/2018 SCHEDULED PROCEDURE: left knee polyethylene exchange with possible patellar revision HISTORY OF PRESENT ILLNESS: This is a 68-year-old female who has had ongoing pain in the left knee for the past 2-3 years. Patient did sustain a fall up proximally 2 years ago. She had a previous left total knee replacement [place] [address] Pierce. Patient continues to complain of pain in the left knee with instability. Patient has been through weight loss after gastric bypass in September 2017. She has increased pain with the left knee going up and down stairs, driving, walking. She has difficult time with activities of daily living doing housework and shopping. She has fallen secondary to her knee pain. Patient has lost approximately 85 pounds since her surgery. After discussion with Dr. Kishor Oneal, the patient would like to proceed with a left knee polyethylene exchange with possible patellar revision. Patient has medical history pertinent for depression as well as previous gastric bypass. She denies any recent chest pain, shortness of breath, fevers chills, recent infection. We are obtaining surgical clearance from patient's primary care physician Dr. Foss REVIEW OF SYSTEMS: ROS: Const: Reports anorexia, change in appetite, hard of hearing, vision problems and weight change, but denies fever. CV: Reports peripheral vascular disease, but denies chest pain, heart murmur and irregular heartbeat. Resp: Denies asthma, cough, pneumonia, sleep apnea, SOB, tuberculosis and wheezing. GI: Reports constipation, but denies diarrhea, difficulty swallowing, heartburn, nausea, bloody stools and vomiting. : Urinary: denies incontinence. Musculo: Reports leg swelling, trouble walking and weakness, but denies limp. Skin: Denies Raynaud's, history of shingles and tattoo. Neuro: Reports dizziness but denies ambulatory dysfunction, numbness/tingling and tremor. Psych: Reports anxiety and depression, but denies insomnia, mental illness and stress. Brandon/Lymph: Denies anemia, bleeding/bruising tendency and past transfusion. Reviewed, no changes. PAST MEDICAL HISTORY: Advance Care Plan: Other Directive, LIVING WILL Effective Date: 08/19/2016 Comments: [facility]ILDR[facility] PMH: Medical Problems: Arthritis, Depression, Tumor On Kidney Accidents: None Surgical Hx: Swallowed Safety Pin - 11/1953 Tailbone Tumor Removal - 03/22/84 Tubal Ligation - 05/01/89 Hernia Repair - 05/01/8902/1990 & Mesh Placement 05/28/93 & Mesh Placement 07/18/97 & Mesh Placement 04/02/01 Knee Arthroscopy LT - 10/20/1992 Knee Replacement RT - 04/19/02 Knee Replacement LT - 04/19/02 Knee Arthroscopy RT - 10/20/92 Hysterectomy - Ovaries/Hernia fixed/bladder/rectum fixed/fiborlil tumor/tummy tuck RT Knee Revision - (11/12/2014) [facility] RT Knee Revision - (08/2015) Carpal Tunnel Release RT - (2011) RT TKR Revision - (01/19/2016) [email or web address] Gastric Bypass - (09/2017) Anesthesia Complications: Nausea, Vomiting Assistive Devices: Glasses, Dentures Reviewed, no changes. SOCIAL HISTORY: SH: Marital: .Occupation: Homemaker.Work Status: Housewife.Hand Dominance: Right-handed. Personal Habits: Smoking: Patient has never smoked.Cigarette Use: Never Smoked Cigarettes.Alcohol: Denies use.Drug Use: Denies Use.Enjoy Exercising: Never Exercises. Reviewed, no changes. VITALS: Ht: 64 Wt: 244lb Wt k.678 BMI: 41.9 BP: 98/72 Pulse: 68 Resp: 16 T: 98.3 T: 36.8C ALLERGIES: Sulfa Penicillin MEDICATIONS: Acetaminophen 500 mg 2 tabs PO tid, Celexa 20 mg 1 tab PO daily, Childrens Chewable Multivitamin With Iron 1 tab PO daily, Sennosides-Docusate Sodium 8.6- 50 mg 2 tabs PO bid, Cyanocobalamin 1000 mcg/ML im ijection daily, Vitamin D3 27060 Unit 1po qday, Biotin 1000 mcg 1po qday, Tramadol HCL 50 mg 1 by mouth every 6 hours as needed pain PRE-OP EXAM: General appearance:NORMAL Other: Eyes: Conjunctivae and lids: NORMAL Pupils: ERR Ears, Nose, Mouth, and Throat: NORMAL Other: Inspection of lips, teeth and gums: NORMAL Other: Neck: Examination of neck: no masses noted. Respiratory: Assessment of respiratory effort: NORMAL Other: Auscultation of lungs: clear to auscultation no wheezes, rhonchi or rales. Cardiovascular: Auscultation of heart: regular rate and rhythm, no murmurs, gallops or rubs. Gastrointestinal: Exam of abdomen: soft, nontender, nondistended bowel sounds present. PHYSICAL EXAMINATION: Examination of the left knee reveals previous incision well-healed without erythema or signs of infection. Range of motion left knee: 0 of extension to 120 flexion. Patient does get translation with anterior drawer testing. Stable to varus and valgus stress test. Sensation intact to light touch. Neurovascularly intact. IMAGING STUDIES: Previous x-rays of the left knee reveal posterior stabilized primary total knee replacement. Implants appear well aligned and well fixed. [place] view does reveal fragmentation of the patella with a transverse fracture and subluxation of the lateral patella. Patella is quite thin on the sunrise view and lateral view. IMPRESSION: 1. Painful left total knee arthroplasty 2. Depression 3. Previous gastric bypass September 2017 4. Previous revision right total knee arthroplasty PLAN: Dr. Kishor Oneal did discuss and review with the patient all treatment options including surgical versus nonsurgical options. Patient does wish to proceed with the above-stated procedure. Potential risks, benefits, and complications of the procedure were discussed in detail including but not limited to , infection, nerve and blood vessel damage, persistent pain, numbness, tingling, paresthesias, blood clot, pulmonary embolism, and requirement for possible further surgery. The patient expressed full understanding and has no further questions for the doctor. Patient does agree to proceed with the above-stated procedure and has signed the surgery consent form. This dictation was created using voice recognition software. Phonetic and/or grammatical errors may exist.. ___ I have re-examined the patient. There are no clinical changes since date of exam. ___ See progress notes for changes. ___ Dictated on admission Date: Time: Signature:
--- NOTE | 2018-08-17 12:26 | CASEMGMT ---
Attempted to contact patient regarding discharge needs after upcoming surgery. No answer on cell phone, voicemail left asking for a return call. Megan Coats LPN Clinical Support
--- NOTE | 2018-08-20 10:06 | CASEMGMT ---
Spoke with patient regarding discharge needs after upcoming surgery. Patient would prefer to go to [facility] or [facility] - wants to go somewhere that her physicians go. Patient does not have therapy set up. Patient does have a walker. At patient's home, there is a bed room and bath room on the first level of the home. Patient reports I've done this before, had a knee replacement in 2001, a right knee revision in 2017. Patient has hand rails in the bathroom at home. There are 2 steps to enter home from outside and there are also handrails. Informed patient that RN-CM would follow up after surgery. Megan Coats LPN Clinical Support
[2018-08-22] VITALS (17 sets, daily range): BP systolic 86–132; BP diastolic 41–92; PULSE 42–60; RESP 16–18; TEMP 36.2–37.2; O2SAT 91–100; BMI 41.8
[2018-08-22] MEDS: oxyCODONE HCl Cr 10 MG Tablet PO (06:10)
[2018-08-22] MEDS: Acetaminophen 500 MG Tablet 1000 MG PO ×3 (06:11→21:59)
[2018-08-22] MEDS: Lactated Ringers 1,000 ML 999 ML IV ×2 (06:31→12:00)
--- NOTE | 2018-08-22 07:14 | RAD_ITS ---
STUDY: X-RAY - LEFT KNEE REASON FOR EXAM: Female, 68 years old. Postop knee revision. TECHNIQUE: 2 view(s) of the knee. COMPARISON: None. FINDINGS: The patient has undergone total knee arthroplasty and/or revision of an indwelling prior total knee arthroplasty. Metal prostheses overlying the femoral condyles and tibial plateau appear well seated, and in anatomic alignment. The stem of the femoral prosthesis extends into the distal diaphysis most of the tibial prosthesis extends into the proximal tibial diaphysis and is surrounded by cement. Normal visualized proximal fibula. There is deformity of the patella related to a radiolucent prosthesis at that site. There is no demonstrated fracture. A metal micki extends between the femoral and tibial prostheses. Normal medial and lateral femorotibial compartments. There is moderate degenerative narrowing of the patellofemoral articulation. Normal proximal tibiofibular articulation. Gas lucencies in the soft tissues surrounding the distal femur as well as in the knee joint are consistent with recent surgery. There are numerous metal anterior midline skin song. RAD/Knee 1 or 2 Views IMPRESSION: Status post total knee arthroplasty and/or revision of an indwelling prior total knee arthroplasty, as noted. Electronically Signed: Jacoby Arora MD at 12:59 EDT , Service support ,
--- NOTE | 2018-08-22 11:29 | PCM.OPRPT ---
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 Patella was too thin to attempt to reconstruct. We ended up using a gullwing technique. Upon entering the knee we did note that the previous metal ring in the patella had fragmented and was causing abrasive wear throughout the joint and significant metallosis. primary health care nurse: Jluis Paez Type of Anesthesia:: General Anesthesiologist: Emre Grewal Special Medications: 600 mg clindamycin, 1 g TXA at incision, 1 g TXA closure, 10 mg Decadron, joint cocktail (5 mg Duramorph, 30 mL of 0.5% Ropivicaine, 1000 units of epinephrine, 30 mg of Toradol) Specimen's removed: 3 separate specimens were sent to microbiology Estimated Blood Loss (mL): 75 mL Fluids Replaced: 1700 mL crystalloid Description of Procedure: Components used: Triathlon TS size 5 left distal femoral component with 5 mm augments distally and 10 mm posterior augment medially and 5 mm augment laterally. 4 mm offset stem with 16 x 100 mm press-fit stem. Triathlon size 4 universal tibial baseplate with 12 mm x 50 mm cemented stem. Size C tibial cone. TS 22 mm X3 polyethylene. Brief history operative indications this is a 68-year-old female who had a left total knee replacement complaining of instability of the knee. Workup for infection was negative. She had chronic persistent pain. We elected to proceed with revision total knee replacement on the left. Patient understands understanding of the risks and benefits which were discussed including but not limited to blood loss, DVTs, PEs, neurovascular damage, infection, recurrent instability and the risk of general anesthesia which include loss of life. Patient demonstrated understanding was able signed for consent. Procedure: On the date of the procedure the patient's left lower externally was marked in the preoperative area. Patient was taken back to the operating room where she was transferred to the table in the supine position. Anesthesia assumed control of the C-spine airway and administered anesthetic. The remainder of the time during the procedure anesthesia remained to control the C-spine and airway. All bony prominences were identified well-padded tourniquet was placed in the left upper thigh. Patient's left lower extremity was prepped in a sterile fashion while the surgeon scrubbed. After the surgeon assistant professor of dietetics scrub we reentered the room. PA and myself draped out the patient in a standard orthopedic fashion and the incision from the previous surgery was marked out. Once the incision was marked out a timeout was called who agreed upon the side, the site, and the procedure to be performed, patient's identity and antibiotics given. Left lower extremity was elevated and exsanguinated with an Esmarch bandage the knee was flexed and the tourniquet was placed up to 250 mmHg. Incision was made down through skin subtenons tissue fat down to fascia. Upon approach to the joint appropriate flaps were made medially and laterally. Patient had a broad patella as noted on her x-rays. Once we made our arthrotomy using the previous arthrotomy and removed all previous FiberWire sutures the patella was everted and the remaining patella button fell out of the wound. This was grossly loose. At this point we flexed the knee after we found that the femoral condyle had abrasive wear especially medially. We then examined the tibial polyethylene and found metallic fragments embedded into the poly-. These were from the previous patella button metallic ring as a marker. Metallic fragments were removed in the joint. Was also noted patient had significant synovitis from metallosis. We did a complete synovectomy starting in the medial compartment and medial gutter proceeding to the suprapatellar compartment and lateral gutter. Once a synovectomy was performed knee was again flexed up and the polyethylene was removed. Once the polyethylene was removed we directed our attention to removal of the implants. Using osteotome and precipitating saw we then broke up the implant cement interface on the femur and were able to use a bone tamp to remove the femur with minimal bone loss but we then directed our attention to the tibia. Tibia was subluxed and the tibial component was again removed breaking up the interface with osteotomes and a TPS saw. Once this was completed the tibia was removed with minimal bone loss. Essentially however due to the keel patient did have enough bone loss we felt, would be appropriate. This time our attention was directed towards reconstruction of the joint after we cleaned of the posterior synovium. During this time cultures were taken from the femoral membrane, tibial membrane and suprapatellar pouch. Attention was directed towards reaming both the canals. We reamed up to a size 13 got a snug fit in the tibia. At this time we used intramedullary reamer and reamed over this to make a size c cone. Cleanup cut was made on top of the tibia back to good bone. This was checked and found to be perpendicular to the axis of the tibia. Once this was done the size 4 tibial baseplate gave us the best fit it was pinned into place and the keel punch was used to punch the keel. The cone trial was placed before this. Once this was done the tibial trial was put in place and our attention was directed towards the femur. We continued reaming the femur up to 16 mm which gave us 150 mm length stem. Our initial trial left the femur proud proximally about 4 mm. We downsized to 100 mm stem and posterior sized the femur. The TCG size 5 trial was placed lining up to the level of the medial epicondyle. We then balanced the knee and pinned the TCD trial to place. We then cut distally for a size 5 mm augment medially and laterally. Posteriorly we had a 10 mm augment medially and a 5 mm augment laterally. During this time we were careful to protect soft tissues especially the collateral ligaments. Once this was done the trial femur was constructed and impacted into place. Once this was done the knee showed a balance knee with good tracking of the residual patella. We did anders the patella which was a shell of cortical bone. Initially we thought we would try bone grafting technique however based on the further examination we elected to choose a going technique for this and leave it on resurface. Trial components were then removed from the knee. Final components were verified and opened. Wound was tim irrigated out with 6 L normal saline. Steri-Strip was placed in the tibia. Hemostasis was obtained. Knee was flexed up and the cone was placed in the tibia. We then pressurized the tibial canal and cemented the tibia into place. We then cemented the femur into place. Knee was placed in extension all excess cement was removed. Once a cemented cured the patella tracked well but there was some laxity of the tissues. A size 22 mm TS implant was trialed and found to be appropriate. Final TS implant was opened. Tourniquet was let down prior to placement of final implant and hemostasis was obtained. Final TS implant was impacted into place and a central post was placed. Irrisept solution was used to irrigate out the joint for 1 minute. Normal saline was used to irrigate out the joint copiously then. We then imbricated the medial repair for the patella with #2 FiberWire. Remainder of the extensor mechanism was repaired with #1 Vicryl. Deep fatty layer was closed with #1 Vicryl runner. Subcutaneous layer was closed with 2-0 Vicryl and final skin closure was done with song. Sterile dressing was placed. Compressive dressing was placed. Patient was awakened by anesthesia and transferred to PACU for recovery. Postoperative plan: Doxycycline for 1 week. Weightbearing as tolerated, activity as tolerated. DVT prophylaxis 81 mg aspirin twice daily. We will monitor patient's GI symptoms if she experiences any GI upset we will switch her to a more aggressive blood thinner that does not irritate her stomach. Grafts/Implants Used: Chago triathlon TS total knee replacement - Complications No intraoperative complications - Admit VTE Documentation VTE Present on Admission: No VTE Mechan Device Prophylaxis: SCD's, Thigh High CHAPO Hose VTE Pharm Prophylaxis ordered?: Yes
--- NOTE | 2018-08-22 13:58 | CASEMGMT ---
Addendum entered by Thais Servin 08/22/18 17:40: AMBERLY placed transfer to extended care facility form on pt's chart. Original Note: [facility] Note AMBERLY placed a call to [facility] in TCU and provided referral. Pt will be ready for discharge to SNF on Monday. Celine states she will know for sure tomorrow if she will have a bed for pt on Monday. Plan: TCU pending acceptance Thais Servin ELECTRICAL DESIGNER, KEYLINER
[2018-08-22] MEDS: Lactated Ringers 1,000 ML 125 ML IV (15:09)
[2018-08-22] MEDS: oxyCODONE 5 MG Tablet PO ×2 (15:10→19:11)
--- NOTE | 2018-08-22 15:17 | PCA ---
rn in with pt
--- NOTE | 2018-08-22 15:50 | PN_ITS ---
Subjective: This is a 68 yo female with pmhx of morbid obesity, prior gastric bypass (09/29), osteoarthritis with prior left total knee replacement 2001, depression, who underwent a left knee polyethylene exchange today with Dr. Oneal. She is currently resting comfortably in bed in NAD post op. She plans to go to [facility] for [facility] at discharge. - Physical Exam General: Alert, Oriented x3, Cooperative HEENT: Atraumatic, PERRLA, EOMI, Normocephalic Neck: Supple, No JVD, Negative Carotid Bruits Lungs: Clear to auscultation, Normal air movement Cardiovascular: Regular rate, No murmurs Abdomen: Bowel Sounds Present, Soft, Non Tender, Obese Extremities: No edema, Capillary Refill Less than 3 Seconds Skin: No rashes, No breakdown Musculoskeletal: No Tenderness to Palpation of Joints or Extremities, - - post op left knee Neurological: Cranial nerves II-XII grossly intact Psych/Mental Status: Normal Affect, Appropriate Vital Signs Temp Pulse Resp BP Pulse Ox 97.3 F L 57 L 16 106/41 L 100 08/22/18 14:43 08/22/18 14:43 08/22/18 14:43 08/22/18 14:43 08/22/18 14:43 Oxygen Flow Rate (L/min) 2 Oxygen Delivery Method Nasal Cannula Weight: 244 lb Body Mass Index (BMI) 41.8 Intake and Output for Last 24 Hours 08/20/18 08/21/18 08/22/18 23:59 23:59 23:59 Intake Total 2700 / 2700 Balance 2700 / 2700 Microbiology Past 72 Hours 08/22/18 11:59 Gram Stain - Final Tissue - Knee 08/22/18 11:59 Gram Stain - Final Tissue - Knee 08/22/18 11:59 Gram Stain - Final Tissue - Knee Medical Necessity - Tobacco Use Smoking Status: Never smoker Assessment/Plan All Active Problems Segmental and somatic dysfunction of cervical region (Acute) Segmental and somatic dysfunction of thoracic region (Acute) Segmental and somatic dysfunction of lumbar region (Acute) 1. Morbid obesity - will complicate healing process. Had gastric bypass September 2017. Recommend further weight loss, dietary modification, dietary supplements - trimming cutter machine to eval pt. 2. Depression - continue celexa. Affect is bright at this time. 3. Osteoarthritis - s/p left knee revision POD#0. PTOT. Perioperative clindamycin, then plan is for PO Doxy x 1 week per ortho. SNF placement when ready. Cultures sent from OR. No fever or leukocytosis DVT ppx: baby asa bid per ortho Thank you for the opportunity to participate in the care of this patient. This patient was seen by Simba Wahl PA-C under the supervision of Dr. Rice.
[2018-08-22] MEDS: Famotidine 20 MG Tablet PO (16:38)
[2018-08-22] MEDS: Doxycycline 100 MG CAPSULE PO ×2 (16:38→21:58)
[2018-08-22] MEDS: Aspirin 81 MG TAB.CHEW PO (16:38)
[2018-08-22] MEDS: Citalopram 20 MG Tablet PO (16:39)
[2018-08-22] MEDS: Ensure Clear 120 ML Liquid PO (16:41)
[2018-08-22] MEDS: morphine SR 15 MG Tablet PO (21:54)
[2018-08-22] MEDS: Senna/Docusate Sodium 1 Tablet 2 TABLET PO (21:58)
[2018-08-23] MEDS: oxyCODONE 5 MG Tablet PO ×3 (01:17→17:51)
[2018-08-23 04:00] VITALS: BP 110/50; PULSE 43; RESP 16; TEMP 36.6; O2SAT 98
[2018-08-23] MEDS: Ketorolac 15 MG/ML Vial IV ×2 (04:38→12:25)
[2018-08-23] MEDS: Acetaminophen 500 MG Tablet 1000 MG PO ×3 (04:39→21:40)
[2018-08-23 06:10] LABS: Hematocrit 33.6 % (37-47); Hemoglobin 10.8 g/dl (12.0-15.0); Mean Corp Hgb Conc 32.1 g/gl (32-36); Mean Corpuscular Volume 96.6 fL (81-99); Mean Platelet Vol. 9.8 fl (6.2-12.0); Platelet Count 177 K/mm3 (150-450); RBC Distribution Width CV 13.5 % (11.6-14.6); RBC Distribution Width SD 45.9 fl (35.1-43.9); Red Blood Count 3.48 M/mm3 (4.2-5.4); White Blood Count 6.1 K/mm3 (4.4-11.0)
[2018-08-23 06:16] LABS: Scan Indicated on CBC? Y/N NO
[2018-08-23 06:28] LABS: Anion Gap 2 (5-15); BUN 13 mg/dL (7-18); BUN/Creat Ratio 18.8 RATIO (10-20); Calcium,Total 8.3 mg/dL (8.5-10.1); Chloride 105 mmol/L (98-107); Creatinine, Serum 0.69 mg/dL (0.55-1.02); EST Glomerular Filtration Rate 90 mL/min (>60); Est Glom Filt Rate - Afr Amer 109 mL/min (>60); Estimated Creatinine Clearance 47.14 ml/min; Glucose 70 mg/dL (74-106); Potassium 3.8 mmol/L (3.5-5.1); Sodium Level 138 mmol/L (136-145)
--- NOTE | 2018-08-23 08:07 | PN.ORTHO_ITS ---
Subjective: The patient was sitting in bed upon examination. Patient denies any chest pain, shortness of breath, lightheadedness, nausea or vomiting, or calf pain. Patient does report dizziness when she is up and moving. At rest she is not having any dizziness. Patient does have scopolamine patch placed behind the right ear. Pain is controlled on medications. No adverse overnight events. She does report soreness and some pain overnight. She did have a difficult time sleeping. CRISTINA is for patient to be discharged to intermediate facility on Monday. Plan is for TCU if a bed is available [facility] [place] Objective: Vital signs stable and afebrile. Patient is able to plantarflex and dorsiflex actively. Sensation is intact to light touch to saphenous, sural, superficial and deep peroneal, and tibial distribution. Dressing is with minimal drainage diffusely throughout seen negative Homans bilaterally, negative signs and symptoms of DVT. - Physical Exam General: Alert, Oriented x3, Cooperative, No apparent distress Vital Signs Temp Pulse Resp BP Pulse Ox 97.9 F 43 L 16 110/50 L 98 08/23/18 04:00 08/23/18 04:00 08/23/18 04:00 08/23/18 04:00 08/23/18 04:00 Oxygen Flow Rate (L/min) 2 Oxygen Delivery Method Room Air Weight: 110.677 kg Body Mass Index (BMI) 41.8 Intake and Output for Last 24 Hours 08/21/18 08/22/18 08/23/18 23:59 23:59 23:59 Intake Total 3850 / 3850 2533 / 2533 Output Total 750 / 750 2750 / 2750 Balance 3100 / 3100 -217 / -217 Microbiology Past 72 Hours 08/22/18 11:59 Gram Stain - Final Tissue - Knee 08/22/18 11:59 Gram Stain - Final Tissue - Knee 08/22/18 11:59 Gram Stain - Final Tissue - Knee Laboratory Tests Past 24 Hrs 08/23/18 08/23/18 05:48 05:48 WBC 6.1 RBC 3.48 L Hgb 10.8 L Hct 33.6 L MCV 96.6 MCH 31.0 MCHC 32.1 RDW 13.5 RDW Differential 45.9 H Plt Count 177 MPV 9.8 Sodium 138 Potassium 3.8 Chloride 105 Carbon Dioxide 31.0 Anion Gap 2 L BUN 13 Creatinine 0.69 Estim Creat Clear Calc 47.14 Est GFR (MDRD) Af Amer 109 Est GFR (MDRD) Non-Af 90 BUN/Creatinine Ratio 18.8 Glucose 70 L Calcium 8.3 L Medical Necessity - Tobacco Use Smoking Status: Never smoker Assessment/Plan All Active Problems Segmental and somatic dysfunction of cervical region (Acute) Segmental and somatic dysfunction of thoracic region (Acute) Segmental and somatic dysfunction of lumbar region (Acute) 1. S/P revision left total knee arthroplasty POD #1 2. Continue Pain Medications: Tylenol and OxyIR 3. DVT Prophylaxis: Aspirin 81 mg twice daily for 4 weeks postoperatively 4. PT/OT: Weightbearing as tolerated 5. H & H: 10.8/33.6, asymptomatic 6. Encouraged Incentive Spirometry 7. Continue antibiotics while following cultures: Currently pending. Patient is on doxycycline for 1 week postoperatively 8. Continue postoperative medical management per medicine 9. Disposition: Plan will be for discharge to intermediate facility on Monday. Plan is for [facility]CU [facility] bed [facility] available [facility]. Scopolamine patch will be removed.
[2018-08-23 08:22] VITALS: BP 120/90; PULSE 57; RESP 16; TEMP 36.8; O2SAT 96
[2018-08-23] MEDS: Aspirin 81 MG TAB.CHEW PO ×2 (08:45→17:49)
[2018-08-23] MEDS: Multivitamins,Therapeutic Tablet 1 TABLET PO (08:45)
[2018-08-23] MEDS: Doxycycline 100 MG CAPSULE PO ×2 (08:46→21:40)
[2018-08-23] MEDS: Famotidine 20 MG Tablet PO (08:46)
[2018-08-23] MEDS: Citalopram 20 MG Tablet PO (08:46)
[2018-08-23] MEDS: Senna/Docusate Sodium 1 Tablet 2 TABLET PO ×2 (08:47→21:40)
--- NOTE | 2018-08-23 09:25 | CASEMGMT ---
Addendum entered by Angela Perez 08/24/18 14:40: Reviewed and approved SW student internal review and audit compliance documentation. ROSE Cat Original Note: Social Work [facility] Spoke with patient about preference for correction location at discharge. Patient agreeable to both [facility] and [facility] as places to discharge with a preference determined by first available. No other services indicated or requested at this time. -TORI Najera Student Anesthesiology Medical Doctor.
--- NOTE | 2018-08-23 09:43 | CASEMGMT ---
Per AMBERLY Preciado, referral needs sent to [facility] [place]. Phone call to Dorina, admissions at [facility]. There is bed availability and ok to fax referral. AMBERLY Sosa, updated that referral will be sent on patient. Faxed to [phone], fax confirmation received. Megan Coats LPN Clinical Support
[2018-08-23] MEDS: morphine SR 15 MG Tablet PO ×2 (09:49→21:39)
--- NOTE | 2018-08-23 10:18 | CASEMGMT ---
Social Work Note AMBERLY spoke with Celine in TCU who confirms she is able to accept pt Monday. Pt updated. AMBERLY placed a call to Dorina at [facility] [place] to disregard referral. Pt updated on discharge to TCU Monday. Plan: TCU Monday Thais Servin MSW, SUPERINTENDENT MEASUREMENT
[2018-08-23] MEDS: 0.9% NaCl Peripheral Flush Adult/Peds IV (12:25)
--- NOTE | 2018-08-23 12:56 | PCA ---
therapy working with pt
[2018-08-23 13:57] VITALS: BP 94/45; PULSE 56; RESP 16; TEMP 36.9; O2SAT 99
[2018-08-23 14:00] VITALS: BP 89/28
[2018-08-23] MEDS: Ensure Clear 120 ML Liquid PO (14:03)
[2018-08-23 17:34] VITALS: BP 112/78; PULSE 55; RESP 16; TEMP 37.1; O2SAT 98
--- NOTE | 2018-08-23 19:02 | PCM.PROGNOTE ---
Subjective: Patient was seen and examined today, her blood pressure was low this afternoon (94/45), patient was encouraged to increase her fluid intake and her blood pressure was improved later on in the afternoon. Patient has no specific complaints to this examiner today. - Physical Exam General: Alert, Oriented x3, Cooperative, No apparent distress, Well developed, Well nourished HEENT: Atraumatic, PERRLA, EOMI, Normocephalic Oral: Moist Mucosa Neck: Supple, No Nuchal Rigidity, Trachea Midline, Thyroid Normal Size and Texture Lungs: Clear to auscultation, Normal air movement, No rhonchi, No wheeze, No rales Cardiovascular: Regular rate, Regular Rhythm, Normal S1, Normal S2, No murmurs, No Ectopic Activity, PMI Normal, No rub noted, No Gallop Abdomen: Bowel Sounds Present, Soft, Non Tender, Non-Distended, No hernias noted Extremities: No clubbing, No cyanosis, Capillary Refill Less than 3 Seconds Skin: No rashes Neurological: Cranial nerves II-XII grossly intact, Neuro grossly intact, Muscle tone normal, Sensory exam intact to light touch and pain Psych/Mental Status: Normal Affect, Appropriate, Alert and oriented to time, place, person, mood and affect Vital Signs Temp Pulse Resp BP Pulse Ox 98.8 F 55 L 16 112/78 98 08/23/18 17:34 08/23/18 17:34 08/23/18 17:34 08/23/18 17:34 08/23/18 17:34 Oxygen Flow Rate (L/min) 2 Oxygen Delivery Method Room Air Weight: 110.677 kg Body Mass Index (BMI) 41.8 Intake and Output for Last 24 Hours 08/21/18 08/22/18 08/23/18 23:59 23:59 23:59 Intake Total 3850 / 3850 3748 / 3748 Output Total 750 / 750 3350 / 3350 Balance 3100 / 3100 398 / 398 Microbiology Past 72 Hours 08/22/18 11:59 Gram Stain - Final Tissue - Knee Wound Culture - Preliminary No growth-Final to follow 08/22/18 11:59 Gram Stain - Final Tissue - Knee Wound Culture - Preliminary No growth-Final to follow 08/22/18 11:59 Gram Stain - Final Tissue - Knee Wound Culture - Preliminary No growth-Final to follow Laboratory Tests Past 24 Hrs 08/23/18 08/23/18 05:48 05:48 WBC 6.1 RBC 3.48 L Hgb 10.8 L Hct 33.6 L MCV 96.6 MCH 31.0 MCHC 32.1 RDW 13.5 RDW Differential 45.9 H Plt Count 177 MPV 9.8 Sodium 138 Potassium 3.8 Chloride 105 Carbon Dioxide 31.0 Anion Gap 2 L BUN 13 Creatinine 0.69 Estim Creat Clear Calc 47.14 Est GFR (MDRD) Af Amer 109 Est GFR (MDRD) Non-Af 90 BUN/Creatinine Ratio 18.8 Glucose 70 L Calcium 8.3 L Medical Necessity - Tobacco Use Smoking Status: Never smoker Assessment/Plan All Active Problems Segmental and somatic dysfunction of cervical region (Resolved) Segmental and somatic dysfunction of thoracic region (Resolved) Segmental and somatic dysfunction of lumbar region (Resolved) #1 depression-continue present medication #2 osteoarthritis #3 morbid obesity #4 status post left knee revision postop day #1-continue PT and OT, patient will need placement in a senior care facility for short-term rehab #5 acute anemia secondary to expected blood loss from left knee revision surgery Code Visit Inpatient E&M: 84726 Subs Hosp L2
[2018-08-23 21:50] VITALS: BP 116/46; PULSE 65; RESP 16; TEMP 37.4; O2SAT 94
[2018-08-24] MEDS: Ketorolac 15 MG/ML Vial IV (00:32)
[2018-08-24] MEDS: 0.9% NaCl Peripheral Flush Adult/Peds IV (00:37)
[2018-08-24] MEDS: Acetaminophen 500 MG Tablet 1000 MG PO ×3 (05:27→22:02)
[2018-08-24 05:29] VITALS: BP 111/55; PULSE 66; RESP 16; TEMP 37.1; O2SAT 92
[2018-08-24 06:08] LABS: Hematocrit 34.5 % (37-47); Hemoglobin 11.2 g/dl (12.0-15.0); Mean Corp Hgb Conc 32.5 g/gl (32-36); Mean Corpuscular Volume 95.6 fL (81-99); Mean Platelet Vol. 10.3 fl (6.2-12.0); Platelet Count 144 K/mm3 (150-450); RBC Distribution Width CV 13.8 % (11.6-14.6); RBC Distribution Width SD 45.7 fl (35.1-43.9); Red Blood Count 3.61 M/mm3 (4.2-5.4)
[2018-08-24 06:12] LABS: Scan Indicated on CBC? Y/N NO
--- NOTE | 2018-08-24 06:50 | PCM.PN.ORT ---
Subjective: Patient is doing well. Continues to complain of 6-8 out of 10 pain. Has expected postoperative swelling. No chest pain or shortness of breath. No calf pain. Cultures have remained negative. Hemoglobin is stable. Patient notes that tramadol has worked well for her in the past and would like to try tramadol instead of the oxycodone. Objective: Operative radiographs were reviewed showing well aligned revision total knee replacement - Physical Exam General: Alert, Oriented x3, Cooperative Extremities: - - Left lower extremity: Dressing is clean dry and intact Sensations intact to light touch saphenous, sural, superficial peroneal, deep peroneal, and tibial distributions Motors intact EHL, DF, PF calves are soft and supple Vital Signs Temp Pulse Resp BP Pulse Ox 98.8 F 66 16 111/55 L 92 08/24/18 05:29 08/24/18 05:29 08/24/18 05:29 08/24/18 05:29 08/24/18 05:29 Oxygen Flow Rate (L/min) 2 Oxygen Delivery Method Room Air Weight: 244 lb 0.016 oz Body Mass Index (BMI) 41.8 Intake and Output for Last 24 Hours 08/22/18 08/23/18 08/24/18 23:59 23:59 23:59 Intake Total 3850 / 3850 3748 / 3748 700 / 700 Output Total 750 / 750 3350 / 3350 1999 / 1999 Balance 3100 / 3100 398 / 398 -1300 / -1300 Microbiology Past 72 Hours 08/22/18 11:59 Gram Stain - Final Tissue - Knee Wound Culture - Preliminary No growth-Final to follow 08/22/18 11:59 Gram Stain - Final Tissue - Knee Wound Culture - Preliminary No growth-Final to follow 08/22/18 11:59 Gram Stain - Final Tissue - Knee Wound Culture - Preliminary No growth-Final to follow Laboratory Tests Past 24 Hrs 08/24/18 05:46 WBC 5.0 RBC 3.61 L Hgb 11.2 L Hct 34.5 L MCV 95.6 MCH 31.0 MCHC 32.5 RDW 13.8 RDW Differential 45.7 H Plt Count 144 L MPV 10.3 Medical Necessity - Tobacco Use Smoking Status: Never smoker Assessment/Plan All Active Problems Segmental and somatic dysfunction of cervical region (Resolved) Segmental and somatic dysfunction of thoracic region (Resolved) Segmental and somatic dysfunction of lumbar region (Resolved) 1. S/P revision left total knee arthroplasty POD #2 2. Pain: Patient is on MS Contin and Tylenol as well as oxycodone. At this time at the patient's request we will attempt to use tramadol instead of the oxycodone is a short release medication. I did explain to the patient that typically this is a lower level of pain medication however due to how well it worked for her in the past she would like to try it. 3. DVT Prophylaxis: Aspirin 81 mg twice daily for 4 weeks postoperatively 4. PT/OT: Weightbearing as tolerated 5. HB: 11.2, asymptomatic 6. Encouraged Incentive Spirometry 7. Continue antibiotics while following cultures: Currently pending. Patient is on doxycycline for 1 week postoperatively 8. Continue postoperative medical management per medicine 9. Disposition: Plan will be for discharge to custodial facility on Monday. Patient has been approved for the TCU. [facility] Office:
[2018-08-24 08:01] VITALS: BP 131/69; PULSE 71; RESP 18; TEMP 37.2; O2SAT 93
[2018-08-24] MEDS: oxyCODONE 5 MG Tablet PO ×3 (08:04→22:06)
[2018-08-24] MEDS: Multivitamins,Therapeutic Tablet 1 TABLET PO (08:05)
[2018-08-24] MEDS: Aspirin 81 MG TAB.CHEW PO ×2 (08:05→16:50)
[2018-08-24] MEDS: Ensure Clear 120 ML Liquid PO ×2 (08:07→14:30)
--- NOTE | 2018-08-24 09:00 | CASEMGMT ---
Social Work Note Pt is able to discharge to TCU tomorrow. SW placed green sheet on chart. Plan: TCU tomorrow. Thais Servin REGIONAL MARKETING DIRECTOR, WILDFIRE PREVENTION SPECIALIST
[2018-08-24] MEDS: morphine SR 15 MG Tablet PO ×2 (10:39→22:07)
[2018-08-24] MEDS: Senna/Docusate Sodium 1 Tablet 2 TABLET PO ×2 (10:39→22:02)
[2018-08-24] MEDS: Doxycycline 100 MG CAPSULE PO ×2 (10:44→22:02)
[2018-08-24] MEDS: Famotidine 20 MG Tablet PO (10:44)
[2018-08-24] MEDS: Citalopram 20 MG Tablet PO (10:44)
[2018-08-24 12:35] VITALS: BP 116/74; PULSE 73; RESP 18; TEMP 37.3; O2SAT 94
[2018-08-24 16:52] VITALS: BP 124/55; PULSE 70; RESP 16; TEMP 37.3; O2SAT 94
--- NOTE | 2018-08-24 17:19 | PCM.PROGNOTE ---
Subjective: Patient was seen and examined today, he has no specific complaints today. Hemoglobin appears stable. - Physical Exam General: Alert, Oriented x3, Cooperative, No apparent distress, Well developed HEENT: Atraumatic, PERRLA, EOMI, Normocephalic Oral: Moist Mucosa Neck: Supple, Trachea Midline, Thyroid Normal Size and Texture Lungs: Clear to auscultation, Normal air movement, No rhonchi, No wheeze, No rales Cardiovascular: Regular rate, Regular Rhythm, Normal S1, Normal S2, No murmurs, No Ectopic Activity, PMI Normal, No rub noted, No Gallop Abdomen: Bowel Sounds Present, Soft, Non Tender, Non-Distended Extremities: No clubbing, No cyanosis, Capillary Refill Less than 3 Seconds Skin: No rashes, No breakdown Neurological: Cranial nerves II-XII grossly intact, Neuro grossly intact, Sensory exam intact to light touch and pain Psych/Mental Status: Normal Affect, Appropriate, Alert and oriented to time, place, person, mood and affect Vital Signs Temp Pulse Resp BP Pulse Ox 99.1 F 70 16 124/55 H 94 08/24/18 16:52 08/24/18 16:52 08/24/18 16:52 08/24/18 16:52 08/24/18 16:52 Oxygen Flow Rate (L/min) 2 Oxygen Delivery Method Room Air Weight: 110.677 kg Body Mass Index (BMI) 41.8 Intake and Output for Last 24 Hours 08/22/18 08/23/18 08/24/18 23:59 23:59 23:59 Intake Total 3850 / 3850 3748 / 3748 1450 / 1450 Output Total 750 / 750 3350 / 3350 2700 / 2700 Balance 3100 / 3100 398 / 398 -1250 / -1250 Microbiology Past 72 Hours 08/22/18 11:59 Gram Stain - Final Tissue - Knee Wound Culture - Preliminary No growth-Final to follow Anaerobic Culture - Preliminary No growth in 48 hours. 08/22/18 11:59 Gram Stain - Final Tissue - Knee Wound Culture - Preliminary No growth-Final to follow Anaerobic Culture - Preliminary No growth in 48 hours. 08/22/18 11:59 Gram Stain - Final Tissue - Knee Wound Culture - Preliminary No growth-Final to follow Anaerobic Culture - Preliminary No growth in 48 hours. Laboratory Tests Past 24 Hrs 08/24/18 05:46 WBC 5.0 RBC 3.61 L Hgb 11.2 L Hct 34.5 L MCV 95.6 MCH 31.0 MCHC 32.5 RDW 13.8 RDW Differential 45.7 H Plt Count 144 L MPV 10.3 Medical Necessity - Tobacco Use Smoking Status: Never smoker Assessment/Plan All Active Problems Segmental and somatic dysfunction of cervical region (Resolved) Segmental and somatic dysfunction of thoracic region (Resolved) Segmental and somatic dysfunction of lumbar region (Resolved) #1 depression-continue present medication #2 osteoarthritis #3 morbid obesity #4 status post left knee revision postop day #2-continue PT and OT, patient will need placement in a retirement facility for short-term rehab #5 acute anemia secondary to expected blood loss from left knee revision surgery, this appears to be stable Code Visit Inpatient E&M: 93576 Subs Hosp L2
[2018-08-24 20:00] VITALS: BP 121/56; PULSE 81; RESP 16; TEMP 38.1; O2SAT 99
[2018-08-25 02:00] VITALS: PULSE 64; RESP 16
[2018-08-25] MEDS: oxyCODONE 5 MG Tablet PO ×2 (02:14→06:13)
[2018-08-25 04:00] VITALS: BP 110/55; PULSE 64; RESP 16; TEMP 36.9; O2SAT 100
[2018-08-25] MEDS: Acetaminophen 500 MG Tablet 1000 MG PO (06:11)
[2018-08-25 07:05] LABS: Hematocrit 38.2 % (37-47); Hemoglobin 12.4 g/dl (12.0-15.0); Mean Corp Hgb Conc 32.5 g/gl (32-36); Mean Corpuscular Hgb 31.7 pg (27.0-32.0); Mean Corpuscular Volume 97.7 fL (81-99); Mean Platelet Vol. 10.2 fl (6.2-12.0); Platelet Count 155 K/mm3 (150-450); RBC Distribution Width CV 14.5 % (11.6-14.6); RBC Distribution Width SD 51.3 fl (35.1-43.9); Red Blood Count 3.91 M/mm3 (4.2-5.4); White Blood Count 5.2 K/mm3 (4.4-11.0)
[2018-08-25 07:12] LABS: Scan Indicated on CBC? Y/N NO
--- NOTE | 2018-08-25 08:08 | PCM.PN.ORT ---
Subjective: Patient is doing well. No acute events overnight. She still is having complaints of pain. No chest pain or shortness of breath. No calf pain. She is mobilizing slowly. However she is resting comfortably in her room and sitting in a chair. - Physical Exam General: Alert, Oriented x3, Cooperative Extremities: - - Left lower extremity: Dressing is clean dry and intact Sensations intact to light touch saphenous, sural, superficial peroneal, deep peroneal, and tibial distributions Motors intact EHL, DF, PF calves are soft and supple Vital Signs Temp Pulse Resp BP Pulse Ox 98.4 F 64 16 110/55 L 100 08/25/18 04:00 08/25/18 04:00 08/25/18 04:00 08/25/18 04:00 08/25/18 04:00 Oxygen Flow Rate (L/min) 2 Oxygen Delivery Method Room Air Weight: 244 lb 0.016 oz Body Mass Index (BMI) 41.8 Intake and Output for Last 24 Hours 08/23/18 08/24/18 08/25/18 23:59 23:59 23:59 Intake Total 3748 / 3748 2150 / 2150 1600 / 1600 Output Total 3350 / 3350 3150 / 3150 1999 / 1999 Balance 398 / 398 -1000 / -1000 -400 / -400 Microbiology Past 72 Hours 08/22/18 11:59 Gram Stain - Final Tissue - Knee Wound Culture - Preliminary No growth-Final to follow Anaerobic Culture - Preliminary No growth in 48 hours. 08/22/18 11:59 Gram Stain - Final Tissue - Knee Wound Culture - Preliminary No growth-Final to follow Anaerobic Culture - Preliminary No growth in 48 hours. 08/22/18 11:59 Gram Stain - Final Tissue - Knee Wound Culture - Preliminary No growth-Final to follow Anaerobic Culture - Preliminary No growth in 48 hours. Laboratory Tests Past 24 Hrs 08/25/18 06:25 WBC 5.2 RBC 3.91 L Hgb 12.4 Hct 38.2 MCV 97.7 MCH 31.7 MCHC 32.5 RDW 14.5 RDW Differential 51.3 H Plt Count 155 MPV 10.2 Medical Necessity - Tobacco Use Smoking Status: Never smoker Assessment/Plan All Active Problems Segmental and somatic dysfunction of cervical region (Resolved) Segmental and somatic dysfunction of thoracic region (Resolved) Segmental and somatic dysfunction of lumbar region (Resolved) 1. S/P revision left total knee arthroplasty POD #3 2. Pain: Patient is on MS Contin and Tylenol as well as oxycodone. Patient remained on oxycodone yesterday. She would like to switch to tramadol if possible. We will switch her to tramadol today and discharge her on tramadol. 3. DVT Prophylaxis: Aspirin 81 mg twice daily for 4 weeks postoperatively 4. PT/OT: Weightbearing as tolerated 5. HB: Hemoglobin stable and correcting 6. Encouraged Incentive Spirometry 7. Continue antibiotics while following cultures: Currently pending. Patient is on doxycycline for 1 week postoperatively. Cultures currently negative 8. Continue postoperative medical management per medicine. Patient has been medically stable 9. Disposition: Discharge to TCU today. [facility] Office:
[2018-08-25] MEDS: Doxycycline 100 MG CAPSULE PO (08:09)
[2018-08-25] MEDS: Senna/Docusate Sodium 1 Tablet 2 TABLET PO (08:09)
[2018-08-25] MEDS: Aspirin 81 MG TAB.CHEW PO (08:09)
[2018-08-25 08:10] VITALS: BP 106/48; PULSE 64; RESP 16; TEMP 36.8; O2SAT 95
[2018-08-25] MEDS: Multivitamins,Therapeutic Tablet 1 TABLET PO (08:10)
[2018-08-25] MEDS: Citalopram 20 MG Tablet PO (08:10)
[2018-08-25] MEDS: Famotidine 20 MG Tablet PO (08:10)
[2018-08-25] MEDS: Ensure Clear 120 ML Liquid PO ×2 (08:12→11:36)
--- NOTE | 2018-08-25 08:23 | DCINST_ITS ---
Discharge Diet: No Restrictions Discharge Activity: May Not Drive May shower in (days): 1 - With occlusive dressing in place May resume sexual activity in: 4-6 weeks Ice area for (Minutes): 20 - every hour while awake. Weight Bearing Status: Weight bearing as tolerated Elevate: Operative Extremity Additional Activity Instructions:: Wear elastic stockings for 2 weeks after your surgery. Call your doctor if your incision/area has: Continuous Slow Oozing, Sudden Increased Bleeding, Increased Pain/ Swelling, Increased Redness, Foul Smelling Discharge Call your doctor if you observe: Fever of 101 or Higher, Coldness, Increased Pain, Numbness or Tingling, Change in Color, Calf discomfort, Uncontrolled pain Change Dressing in (Days):: 3 - Remove dressing on 08/28/2018 and replaced with silver Mepilex for an additional 3 days Remove Dressing in (days):: 08-31-2018 Cleanse incision/area with: Keep Dressing Clean & Dry Additional Dressing/Incision Instructions:: After removal of second dressing, if incision is clean dry and intact may leave the wound open to air and continue showering. If there is continued drainage continue daily dry dressing changes and keep incision clean dry and intact until there is no drainage. Additional Instructions: We will plan to discontinue MS Contin 4 days after discharge from hospital. This is not meant to be a long-term medication would focus on Tylenol and short acting narcotics at that time. Allergies/Adverse Reactions: Allergies codeine Allergy (Verified 08/22/18 05:52) Shortness of breath Penicillins [PCN] Allergy (Verified 08/22/18 05:52) Shortness of breath Sulfa (Sulfonamide Antibiotics) Allergy (Verified 08/22/18 05:52) Swelling Medications to take at Discharge Biotin 1 mg PO DAILY 08/06/18 Cholecalciferol (VIT D3) [Vitamin D3] 1,000 unit PO DAILY 08/06/18 Citalopram [Celexa] 20 mg PO DAILY 08/06/18 Cyanocobalamin (Vitamin B-12) [Cyanocobalamin Injection] 1,000 mcg IJ QMONTH 08/06/18 Pedi Multivit No.25/Folic Acid [Children Multivitamin Chew Tab] 300 mcg PO DAILY 08/06/18 Senna/Docusate Sodium [Senokot-S] 2 tablet PO BID 08/06/18 Acetaminophen [Tylenol] 1,000 mg PO Q8 tablet 08/25/18 Aspirin [Aspirin, Baby] 81 mg PO BIDCM tab.chew 08/25/18 Doxycycline 100 mg PO BID #10 cap 08/25/18 Ensure Clear 120 ml PO TIDCM liquid 08/25/18 Famotidine [Pepcid] 20 mg PO DAILY #30 tab 08/25/18 Senna/Docusate Sodium [Senokot-S] 2 tablet PO BID tablet 08/25/18 morphine SR tablet [Ms Contin] 15 mg PO BID 4 Days #8 tab 08/25/18 traMADol [Ultram] 50 - 100 mg PO Q6H PRN PRN #60 tab 08/25/18 The following prescriptions were given: traMADol [Ultram] 50 - 100 mg PO Q6H PRN PRN #60 tab PRN Reason: Pain Famotidine [Pepcid] 20 mg PO DAILY #30 tab Doxycycline 100 mg PO BID #10 cap morphine SR tablet [Ms Contin] 15 mg PO BID 4 Days #8 tab Primary Care Physician: Gregory Foss MD [Primary Care Provider] - Test Results: Test results from this visit will be discussed in further detail at your follow- up appointment, if applicable. Please Follow Up With: Orion Breaux PA-C When: 09-05-2018 10:00 Proposed Discharge Date: 08/25/18
[2018-08-25] MEDS: morphine SR 15 MG Tablet PO (10:35)
--- NOTE | 2018-08-25 10:58 | NURSING ---
REPORT CALLED TO ZACHARY MEDEIROS ON TCU FOR DISCHARGE.
[2018-08-25] MEDS: traMADol 50 MG Tablet PO (11:37)
[2018-08-25 11:40] VITALS: BP 110/50; PULSE 68; RESP 16; TEMP 36.8; O2SAT 97
--- NOTE | 2018-08-25 17:57 | PN_ITS ---
Subjective: Patient was seen and examined today, she is going to be transferred to a nursing home facility today for inpatient rehab services. Patient has no complaints to this examiner today - Physical Exam General: Alert, Oriented x3, Cooperative HEENT: Atraumatic, PERRLA, EOMI, Normocephalic Oral: Moist Mucosa Neck: Supple, No JVD, Negative Carotid Bruits Lungs: Clear to auscultation, Normal air movement, No rhonchi, No wheeze, No rales Cardiovascular: Regular rate, Regular Rhythm, Normal S1, Normal S2, No murmurs, No Ectopic Activity, PMI Normal, No rub noted, No Gallop Abdomen: Bowel Sounds Present, Soft, Non Tender, Non-Distended Extremities: No clubbing, No cyanosis, No edema, Capillary Refill Less than 3 Seconds Skin: No rashes Neurological: Cranial nerves II-XII grossly intact, Neuro grossly intact, Sensory exam intact to light touch and pain, Coordination normal Psych/Mental Status: Normal Affect, Appropriate, Alert and oriented to time, place, person, mood and affect Vital Signs Temp Pulse Resp BP Pulse Ox 98.2 F 68 16 110/50 L 97 08/25/18 11:40 08/25/18 11:40 08/25/18 11:40 08/25/18 11:40 08/25/18 11:40 Oxygen Flow Rate (L/min) 2 Oxygen Delivery Method Room Air Weight: 110.677 kg Body Mass Index (BMI) 41.8 Intake and Output for Last 24 Hours 08/23/18 08/24/18 08/25/18 23:59 23:59 23:59 Intake Total 3748 / 3748 2150 / 2150 1999 / 1999 Output Total 3350 / 3350 3150 / 3150 3000 / 3000 Balance 398 / 398 -1000 / -1000 -1000 / -1000 Microbiology Past 72 Hours 08/22/18 11:59 Gram Stain - Final Tissue - Knee Wound Culture - Final No growth aerobically. Anaerobic Culture - Preliminary No growth in 48 hours. 08/22/18 11:59 Gram Stain - Final Tissue - Knee Wound Culture - Final No growth aerobically. Anaerobic Culture - Preliminary No growth in 48 hours. 08/22/18 11:59 Gram Stain - Final Tissue - Knee Wound Culture - Final No growth aerobically. Anaerobic Culture - Preliminary No growth in 48 hours. Laboratory Tests Past 24 Hrs 08/25/18 06:25 WBC 5.2 RBC 3.91 L Hgb 12.4 Hct 38.2 MCV 97.7 MCH 31.7 MCHC 32.5 RDW 14.5 RDW Differential 51.3 H Plt Count 155 MPV 10.2 Medical Necessity - Tobacco Use Smoking Status: Never smoker Assessment/Plan All Active Problems Segmental and somatic dysfunction of cervical region (Resolved) Segmental and somatic dysfunction of thoracic region (Resolved) Segmental and somatic dysfunction of lumbar region (Resolved) #1 depression #2 osteoarthritis #3 morbid obesity #4 status post left knee revision postop day #3-patient is being transferred to an inpatient rehab facility for further skilled care. #5 acute anemia secondary to expected blood loss from left knee revision surgery Code Visit Inpatient E&M: 01010 Subs Hosp L2
--- NOTE | 2018-08-29 08:00 | DS.PCM_ITS ---
Discharge Date and Diagnosis - Problem List Patient Problems: Active and Suspected Problems Left knee pain (Acute) Date of Admission: 08/22/18 Date of Discharge: 08/25/18 - Primary Discharge Diagnosis Active and Suspected Problems Left knee pain (Acute) - Secondary Discharge Diagnosis Chronic Problems Osteoarthritis of knees, bilateral (Chronic) Depression (Chronic) Kidney tumor (Chronic) Body mass index (BMI) 40.0-44.9, adult (Chronic) Hospital Course and Treatment Summary of Care Provided: Patient is a 68-year-old female who had a previous left total knee arthroplasty and has had complaints of instability in the left knee. Workup for infection was negative. Patient had chronic persistent pain. After failing conservative measures, the patient opted to proceed with a revision left total knee arthroplasty. The patient underwent the above-stated procedure on August 22, 2018. Patient did receive perioperative antibiotics. Intraoperatively was uneventful. For details please see dictated operative note. The patient was placed in thigh-high teds, bilateral SCDs, remained stable in recovery. Patient was admitted to the 3rd floor at [facility]. The patient's pain was managed with the use of IV and p.o. pain medications. Patient participated in physical therapy. Patient was discharged on postope rative day #3 to [facility] facility. Patient was given medications stated below. Patient will follow up with [facility] per postop instructions for reassessment. Patient Problems: Active and Suspected Problems Left knee pain (Acute) - Physical Exam Vital Signs Temp Pulse Resp BP Pulse Ox 98.2 F 68 16 110/50 L 97 08/25/18 11:40 08/25/18 11:40 08/25/18 11:40 08/25/18 11:40 08/25/18 11:40 Oxygen Flow Rate (L/min) 2 Oxygen Delivery Method Room Air Weight: 110.677 kg Body Mass Index (BMI) 41.8 Microbiology Past 72 Hours 08/22/18 11:59 Gram Stain - Final Tissue - Knee Wound Culture - Final No growth aerobically. Anaerobic Culture - Final No anaerobic bacteria isolated. 08/22/18 11:59 Gram Stain - Final Tissue - Knee Wound Culture - Final No growth aerobically. Anaerobic Culture - Final No anaerobic bacteria isolated. 08/22/18 11:59 Gram Stain - Final Tissue - Knee Wound Culture - Final No growth aerobically. Anaerobic Culture - Final No anaerobic bacteria isolated. Discharge Diet: No Restrictions Discharge Activity: May Not Drive May shower in (days): 1 - With occlusive dressing in place May resume sexual activity in: 4-6 weeks Ice area for (Minutes): 20 - every hour while awake. Weight Bearing Status: Weight bearing as tolerated Keep extremity elevated above heart level: Operative Extremity Additional Activity Instructions:: Wear elastic stockings for 2 weeks after your surgery. Call your doctor if your incision/area has: Continuous Slow Oozing, Sudden Increased Bleeding, Increased Pain/ Swelling, Increased Redness, Foul Smelling Discharge Call your doctor if you observe: Fever of 101 or Higher, Coldness, Increased Pain, Numbness or Tingling, Change in Color, Calf discomfort, Uncontrolled pain Change Dressing in (Days):: 3 - Remove dressing on 08/28/2018 and replaced with silver Mepilex for an additional 3 days Remove Dressing in (days):: 08-31-2018 Cleanse incision/area with: Keep Dressing Clean & Dry Additional Dressing/Incision Instructions:: After removal of second dressing, if incision is clean dry and intact may leave the wound open to air and continue showering. If there is continued drainage continue daily dry dressing changes and keep incision clean dry and intact until there is no drainage. Home Medications: Medications to take at Discharge Biotin 1 mg PO DAILY 08/06/18 Cholecalciferol (VIT D3) [Vitamin D3] 1,000 unit PO DAILY 08/06/18 Citalopram [Celexa] 20 mg PO DAILY 08/06/18 Cyanocobalamin (Vitamin B-12) [Cyanocobalamin Injection] 1,000 mcg IJ QMONTH 08/06/18 Pedi Multivit No.25/Folic Acid [Children Multivitamin Chew Tab] 300 mcg PO DAILY 08/06/18 Senna/Docusate Sodium [Senokot-S] 2 tablet PO BID 08/06/18 Acetaminophen [Tylenol] 1,000 mg PO Q8 08/25/18 Aspirin [Aspirin, Baby] 81 mg PO BIDCM 08/25/18 Doxycycline 100 mg PO BID 08/25/18 Ensure Clear 120 ml PO TIDCM 08/25/18 Famotidine [Pepcid] 20 mg PO DAILY 08/25/18 morphine SR tablet [Ms Contin] 15 mg PO BID 08/25/18 traMADol [Ultram] 50 - 100 mg PO Q6H PRN PRN #60 tab 08/25/18 Following Prescrptions Were Given to Patient: traMADol [Ultram] 50 - 100 mg PO Q6H PRN PRN #60 tab PRN Reason: Pain Primary Care Physician: Gregory Foss MD [Primary Care Provider] - Please Follow Up With: Orion Breaux PA-C When: 09-05-2018 10:00 Additional Instructions: We will plan to discontinue MS Contin 4 days after discharge from hospital. This is not meant to be a long-term medication would focus on Tylenol and short acting narcotics at that time. Medical Necessity - Tobacco Use Smoking Status: Never smoker Meaningful Use Info Meaningful Use Diagnoses (Choose all that apply): None applicable
== END 2018-08-25 12:45 | disposition skilled nursing facility (03) | DRG 467 ==
PROVIDERS: Admitting Provider Specialist; Family Provider Family Medicine; PCP Family Medicine; Referring Provider Specialist; Visit Provider Specialist
PROC: 0SPD0JZ Removal of Synthetic Substitute from Left Knee Joint, Open Approach (ICD-10-PCS; principal; 2018-08-22 06:50)
DX: T84.033A Mechanical loosening of internal left knee prosthetic joint, initial encounter (principal); Z68.41 Body mass index [BMI] 40.0-44.9, adult; D62 Acute posthemorrhagic anemia; T84.063A Wear of articular bearing surface of internal prosthetic left knee joint, initial encounter; T84.84XA Pain due to internal orthopedic prosthetic devices, implants and grafts, initial encounter; Z98.84 Bariatric surgery status; F32.9 Major depressive disorder, single episode, unspecified; Z96.653 Presence of artificial knee joint, bilateral; E66.01 Morbid (severe) obesity due to excess calories
CPT/HCPCS: 36415; 73560; 80048; 85025; 85027; 87015; 87070; 87075; 87081; 87102; 87116; 87205; 87206; 93005; 97110; 97116; 97162; 97166; 97530; 97535; 97802; 99251; C1776; J7120; A4216; G0463; J2405

== ENCOUNTER 2018-08-25 13:48 | Inpatient (IN) | payer MEDICARE, MEDICAID, SELFPAY ==
[2018-08-22 14:43] VITALS: BMI 41.8
[2018-08-25 14:02] VITALS: BP 100/55; PULSE 71; RESP 16; TEMP 36.6; O2SAT 95
--- NOTE | 2018-08-25 14:17 | NURSING ---
pt arrived from [facility] via [id number]
[2018-08-25 14:41] VITALS: BMI 43.7
[2018-08-25 14:59] VITALS: BMI 43.7
[2018-08-25 16:00] VITALS: BP 106/57; PULSE 67; RESP 20; TEMP 36.8; O2SAT 97
[2018-08-25] MEDS: traMADol 50 MG Tablet PO (18:14)
[2018-08-25] MEDS: Aspirin 81 MG TAB.CHEW PO (18:14)
[2018-08-25] MEDS: Senna/Docusate Sodium 1 Tablet 2 TABLET PO (18:14)
--- NOTE | 2018-08-25 19:11 | PCM.HP.STD ---
Problem List (1) Left knee pain Status: Acute (2) Osteoarthritis of knees, bilateral Status: Chronic (3) Depression Status: Chronic (4) Kidney tumor Status: Chronic (5) Body mass index (BMI) 40.0-44.9, adult Status: Chronic History of Present Illness Date of Admission: 08/25/18 Chief Complaint: Here for rehabilitation, strengthening, prior to discharge home alone. The patient is a 68 year old Female with below past medical history with followin08/06/2018 EKG sinus bradycardia, left axis deviation, nonspecific ST abnormality, poor R wave progression. Left knee 2 to 3 years. Fell 2 years ago. Left total knee replacement 2001, left knee pain, instability. 08/22/2018 Dr. Oneal performed revision left total knee replacement all components. MS Contin, Tylenol, Oxycodone for pain. Switch Oxycodone to Tramadol if possible. Aspirin 81MG BID thru 09/21/2018 for deep vein thrombosis prophylaxis. Hemoglobin stable, improving. Surgical cultures negative to date, Doxycycline x 1 week. 08/25/2018 Admit to TCU with debility, here for rehabilitation, strengthening, prior to discharge home alone. Past Medical History Past Medical History (Chronic Problems): Chronic Problems Osteoarthritis of knees, bilateral (Chronic) Depression (Chronic) Kidney tumor (Chronic) Body mass index (BMI) 40.0-44.9, adult (Chronic) Allergies codeine Allergy (Verified 08/22/18 05:52) Shortness of breath Penicillins [PCN] Allergy (Verified 08/22/18 05:52) Shortness of breath Sulfa (Sulfonamide Antibiotics) Allergy (Verified 08/22/18 05:52) Swelling Home Medications: Ambulatory Orders Medication Instructions Recorded Biotin 1 mg PO DAILY 08/06/18 Cholecalciferol (VIT D3) [Vitamin 1,000 unit PO DAILY 08/06/18 D3] Citalopram [Celexa] 20 mg PO DAILY 08/06/18 Cyanocobalamin (Vitamin B-12) 1,000 mcg IJ QMONTH 08/06/18 [Cyanocobalamin Injection] Pedi Multivit No.25/Folic Acid 300 mcg PO DAILY 08/06/18 [Children Multivitamin Chew Tab] Senna/Docusate Sodium [Senokot-S] 2 tablet PO BID 08/06/18 Acetaminophen [Tylenol] 1,000 mg PO Q8 08/25/18 Aspirin [Aspirin, Baby] 81 mg PO BIDCM 08/25/18 Doxycycline 100 mg PO BID 08/25/18 Ensure Clear 120 ml PO TIDCM 08/25/18 Famotidine [Pepcid] 20 mg PO DAILY 08/25/18 morphine SR tablet [Ms Contin] 15 mg PO BID 08/25/18 traMADol [Ultram] 50 - 100 mg PO Q6H PRN PRN #60 tab 08/25/18 Surgical History: gastric bypass, herniorrhaphy, hysterectomy, total knee arthroplasty - Bilateral., - - Tubal ligation, Mesh placement x 3, Bilateral knee revisions. Psychiatric History: Depression SCRAP WHEELER History: No pertinent SCRAP WHEELER history Lives: Alone Smoking Status: Never smoker Tobacco Use: Non-smoker Alcohol: None Drugs: None - *Family History Maternal History Items: No pertinent history Paternal History Items: No pertinent history Review of Systems Constitutional: Denies: Chills, Fever, Weight Change HEENT: Denies: Head Aches, Sinus Congestion, Sinus Drainage Cardiovascular: Denies: Chest Pain, Palpitations Respiratory: Denies: Cough, Shortness of breath at rest, Sputum production Gastrointestinal: Denies: Abdominal Pain, Nausea, Vomiting Genitourinary: Denies: Dysuria Musculoskeletal: Denies: Joint Pain, Joint Tenderness Skin: Denies: Rash, Wounds Neurological: Denies: Numbness, Tingling, Focal weakness Psychiatric: Denies: Anxiety, Depression, Homicidal Ideations, Suicidal Ideations Hematologic/ Lymphatic: Denies: Easy Bruising, Easy Bleeding VTE Information - Inpt Only VTE Present on Admission: No VTE Mechan Device Prophylaxis: Knee High CHAPO Hose VTE Pharm Prophylaxis ordered?: Yes Patient Problems: Active and Suspected Problems Left knee pain (Acute) - Physical Exam General: Alert, Oriented x3, Cooperative HEENT: Atraumatic, PERRLA, EOMI, Normocephalic Neck: Supple, No JVD, Negative Carotid Bruits Lungs: Clear to auscultation, Normal air movement Cardiovascular: Regular rate, No murmurs Abdomen: Bowel Sounds Present, Soft, Non Tender Extremities: No edema, Capillary Refill Less than 3 Seconds Skin: No rashes, No breakdown, Incision - Left anterior knee incision clean, dry, intact. Musculoskeletal: No Tenderness to Palpation of Joints or Extremities Neurological: Cranial nerves II-XII grossly intact Psych/Mental Status: Normal Affect, Appropriate Vital Signs Temp Pulse Resp BP Pulse Ox 98 F 71 16 100/55 L 95 08/25/18 14:02 08/25/18 14:02 08/25/18 14:02 08/25/18 14:02 08/25/18 14:02 Oxygen Delivery Method Room Air Weight: 115.6 kg Body Mass Index (BMI) 43.7 Assessment/Plan All Active Problems Left knee pain (Acute) Segmental and somatic dysfunction of cervical region (Resolved) Segmental and somatic dysfunction of thoracic region (Resolved) Segmental and somatic dysfunction of lumbar region (Resolved) 68 year old female with below past medical history hospitalized for left total knee replacement revision all components 08/22/[address] Oneal, admitted to TCU with debility, here for rehabilitation, strengthening, prior to discharge home alone. Debility - PT/OT. Pain - Tylenol 1000MG Q8H, Tramadol 50MG Q6H PRN moderate pain, MS Contin 15MG BID. Bowel - Miralax 17GM daily, Senna/colace 2 tablets BID, Dulcolax 10MG daily PRN, Soap suds enema. Pneumonia vaccination - Administer Prevnar 13 and/or Pneumovax 23 as necessary. DVT prophylaxis - Aspirin 81MG BID thru 09/21/2018. Vitamin D deficiency - D3 1000IU daily. Depression - Celexa 20MG daily. Vitamin B12 deficiency - B12 1000MCG SC Q month. Left total knee revision - Doxycycline 100MG BID thru 08/30/2018. Nutrition - Ensure Clear 120ML TID. GERD - Famotidine 20MG daily.
--- NOTE | 2018-08-25 19:15 | HP.PCM_ITS ---
Problem List (1) Left knee pain Status: Acute (2) Osteoarthritis of knees, bilateral Status: Chronic (3) Depression Status: Chronic (4) Kidney tumor Status: Chronic (5) Body mass index (BMI) 40.0-44.9, adult Status: Chronic History of Present Illness Date of Admission: 08/25/18 Chief Complaint: Here for rehabilitation, strengthening, prior to discharge home alone. The patient is a 68 year old Female with below past medical history with followin08/06/2018 EKG sinus bradycardia, left axis deviation, nonspecific ST abnormality, poor R wave progression. Left knee 2 to 3 years. Fell 2 years ago. Left total knee replacement 2001, left knee pain, instability. 08/22/2018 Dr. Oneal performed revision left total knee replacement all components. MS Contin, Tylenol, Oxycodone for pain. Switch Oxycodone to Tramadol if possible. Aspirin 81MG BID thru 09/21/2018 for deep vein thrombosis prophylaxis. Hemoglobin stable, improving. Surgical cultures negative to date, Doxycycline x 1 week. 08/25/2018 Admit to TCU with debility, here for rehabilitation, strengthening, prior to discharge home alone. Past Medical History Past Medical History (Chronic Problems): Chronic Problems Osteoarthritis of knees, bilateral (Chronic) Depression (Chronic) Kidney tumor (Chronic) Body mass index (BMI) 40.0-44.9, adult (Chronic) Allergies codeine Allergy (Verified 08/22/18 05:52) Shortness of breath Penicillins [PCN] Allergy (Verified 08/22/18 05:52) Shortness of breath Sulfa (Sulfonamide Antibiotics) Allergy (Verified 08/22/18 05:52) Swelling Home Medications: Ambulatory Orders Medication Instructions Recorded Biotin 1 mg PO DAILY 08/06/18 Cholecalciferol (VIT D3) [Vitamin 1,000 unit PO DAILY 08/06/18 D3] Citalopram [Celexa] 20 mg PO DAILY 08/06/18 Cyanocobalamin (Vitamin B-12) 1,000 mcg IJ QMONTH 08/06/18 [Cyanocobalamin Injection] Pedi Multivit No.25/Folic Acid 300 mcg PO DAILY 08/06/18 [Children Multivitamin Chew Tab] Senna/Docusate Sodium [Senokot-S] 2 tablet PO BID 08/06/18 Acetaminophen [Tylenol] 1,000 mg PO Q8 08/25/18 Aspirin [Aspirin, Baby] 81 mg PO BIDCM 08/25/18 Doxycycline 100 mg PO BID 08/25/18 Ensure Clear 120 ml PO TIDCM 08/25/18 Famotidine [Pepcid] 20 mg PO DAILY 08/25/18 morphine SR tablet [Ms Contin] 15 mg PO BID 08/25/18 traMADol [Ultram] 50 - 100 mg PO Q6H PRN PRN #60 tab 08/25/18 Surgical History: gastric bypass, herniorrhaphy, hysterectomy, total knee arthroplasty - Bilateral., - - Tubal ligation, Mesh placement x 3, Bilateral knee revisions. 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 Lives: Alone Smoking Status: Never smoker Tobacco Use: Non-smoker Alcohol: None Drugs: None - *Family History Maternal History Items: No pertinent history Paternal History Items: No pertinent history Review of Systems Constitutional: Denies: Chills, Fever, Weight Change HEENT: Denies: Head Aches, Sinus Congestion, Sinus Drainage Cardiovascular: Denies: Chest Pain, Palpitations Respiratory: Denies: Cough, Shortness of breath at rest, Sputum production Gastrointestinal: Denies: Abdominal Pain, Nausea, Vomiting Genitourinary: Denies: Dysuria Musculoskeletal: Denies: Joint Pain, Joint Tenderness Skin: Denies: Rash, Wounds Neurological: Denies: Numbness, Tingling, Focal weakness Psychiatric: Denies: Anxiety, Depression, Homicidal Ideations, Suicidal Ideations Hematologic/ Lymphatic: Denies: Easy Bruising, Easy Bleeding VTE Information - Inpt Only VTE Present on Admission: No VTE Mechan Device Prophylaxis: Knee High CHAPO Hose VTE Pharm Prophylaxis ordered?: Yes Patient Problems: Active and Suspected Problems Left knee pain (Acute) - Physical Exam General: Alert, Oriented x3, Cooperative HEENT: Atraumatic, PERRLA, EOMI, Normocephalic Neck: Supple, No JVD, Negative Carotid Bruits Lungs: Clear to auscultation, Normal air movement Cardiovascular: Regular rate, No murmurs Abdomen: Bowel Sounds Present, Soft, Non Tender Extremities: No edema, Capillary Refill Less than 3 Seconds Skin: No rashes, No breakdown, Incision - Left anterior knee incision clean, dry , intact. Musculoskeletal: No Tenderness to Palpation of Joints or Extremities Neurological: Cranial nerves II-XII grossly intact Psych/Mental Status: Normal Affect, Appropriate Vital Signs Temp Pulse Resp BP Pulse Ox 98 F 71 16 100/55 L 95 08/25/18 14:02 08/25/18 14:02 08/25/18 14:02 08/25/18 14:02 08/25/18 14:02 Oxygen Delivery Method Room Air Weight: 115.6 kg Body Mass Index (BMI) 43.7 Assessment/Plan All Active Problems Left knee pain (Acute) Segmental and somatic dysfunction of cervical region (Resolved) Segmental and somatic dysfunction of thoracic region (Resolved) Segmental and somatic dysfunction of lumbar region (Resolved) 68 year old female with below past medical history hospitalized for left total knee replacement revision all components 08/22/[address] Oneal, admitted to TCU with debility, here for rehabilitation, strengthening, prior to discharge home alone. * Debility - PT/OT. * Pain - Tylenol 1000MG Q8H, Tramadol 50MG Q6H PRN moderate pain, MS Contin 15MG BID. * Bowel - Miralax 17GM daily, Senna/colace 2 tablets BID, Dulcolax 10MG daily PRN, Soap suds enema. * Pneumonia vaccination - Administer Prevnar 13 and/or Pneumovax 23 as necessary. * DVT prophylaxis - Aspirin 81MG BID thru 09/21/2018. * Vitamin D deficiency - D3 1000IU daily. * Depression - Celexa 20MG daily. * Vitamin B12 deficiency - B12 1000MCG SC Q month. * Left total knee revision - Doxycycline 100MG BID thru 08/30/2018. * Nutrition - Ensure Clear 120ML TID. * GERD - Famotidine 20MG daily.
--- NOTE | 2018-08-25 19:37 | NURSING ---
Code status discussed with pt and pt's daughter Richa. Pt wishes to be a DNRCC.
[2018-08-25] MEDS: Doxycycline 100 MG CAPSULE PO (20:05)
[2018-08-25] MEDS: Acetaminophen 500 MG Tablet 1000 MG PO (20:09)
[2018-08-25] MEDS: morphine SR 15 MG Tablet PO (21:06)
--- NOTE | 2018-08-25 22:27 | NURSING ---
Dr. Mott updated on no results from [facility]. New order for Mag citrate 300ml x1.
[2018-08-25] MEDS: Magnesium Citrate 300 ML PO (22:35)
[2018-08-26] MEDS: traMADol 50 MG Tablet PO ×3 (03:01→18:08)
[2018-08-26] MEDS: Acetaminophen 500 MG Tablet 1000 MG PO ×3 (05:39→20:12)
[2018-08-26] MEDS: Citalopram 20 MG Tablet PO (05:39)
[2018-08-26] MEDS: Famotidine 20 MG Tablet PO (05:39)
[2018-08-26] MEDS: Doxycycline 100 MG CAPSULE PO ×2 (05:40→18:09)
[2018-08-26] MEDS: Polyethylene Glycol 3350 17 GM PACKET PO (05:40)
[2018-08-26] MEDS: Senna/Docusate Sodium 1 Tablet 2 TABLET PO ×2 (05:48→18:24)
[2018-08-26 06:00] LABS: Absolute Neutrophil Count 2.6 X10^3/uL (2.0-7.7); Basophil# 0.02 X10^3/uL; Basophil% 0.4 % (0-1); Eosinophil# 0.14 X10^3/uL; Eosinophils% 2.8 % (0-5); Hematocrit 34.9 % (37-47); Hemoglobin 11.2 g/dl (12.0-15.0); Lymphocyte % 31.9 % (19-41); Mean Corp Hgb Conc 32.1 g/gl (32-36); Mean Corpuscular Hgb 31.6 pg (27.0-32.0); Mean Corpuscular Volume 98.6 fL (81-99); Mean Platelet Vol. 10.5 fl (6.2-12.0); Neutrophil # 2.64 X10^3/uL (2.7-7.7); Neutrophil % 52.5 % (47-70); Platelet Count 190 K/mm3 (150-450); RBC Distribution Width CV 14.1 % (11.6-14.6); RBC Distribution Width SD 49.1 fl (35.1-43.9); Red Blood Count 3.54 M/mm3 (4.2-5.4)
[2018-08-26 06:06] LABS: Anion Gap 4 (5-15); BUN 13 mg/dL (7-18); BUN/Creat Ratio 20.7 RATIO (10-20); Calcium,Total 8.7 mg/dL (8.5-10.1); Chloride 108 mmol/L (98-107); Creatinine, Serum 0.63 mg/dL (0.55-1.02); EST Glomerular Filtration Rate 100 mL/min (>60); Est Glom Filt Rate - Afr Amer 121 mL/min (>60); Estimated Creatinine Clearance 47.14 ml/min; Glucose 87 mg/dL (74-106); Potassium 4.6 mmol/L (3.5-5.1); Sodium Level 142 mmol/L (136-145)
[2018-08-26 06:20] LABS: POSITIVE COUNT NO; POSITIVE DIFFERENTIAL NO; POSITIVE MORPHOLOGY NO
[2018-08-26 07:00] VITALS: PULSE 76; RESP 18
[2018-08-26] MEDS: Aspirin 81 MG TAB.CHEW PO ×2 (07:58→18:12)
[2018-08-26] MEDS: morphine SR 15 MG Tablet PO ×2 (09:47→21:07)
[2018-08-26] MEDS: Tuberculin,Purif.prot.deriv. 50 TU/ML Vial 5 ML ID (09:48)
[2018-08-26 16:00] VITALS: BP 107/66; PULSE 64; RESP 20; TEMP 36.3; O2SAT 94
[2018-08-27] MEDS: traMADol 50 MG Tablet PO ×2 (01:30→08:31)
[2018-08-27] MEDS: Senna/Docusate Sodium 1 Tablet 2 TABLET PO ×2 (06:06→16:59)
[2018-08-27] MEDS: Doxycycline 100 MG CAPSULE PO ×2 (06:06→17:00)
[2018-08-27] MEDS: Famotidine 20 MG Tablet PO (06:06)
[2018-08-27] MEDS: Citalopram 20 MG Tablet PO (06:06)
[2018-08-27] MEDS: Polyethylene Glycol 3350 17 GM PACKET PO (06:07)
[2018-08-27] MEDS: Acetaminophen 500 MG Tablet 1000 MG PO ×3 (06:11→21:38)
[2018-08-27] MEDS: Aspirin 81 MG TAB.CHEW PO ×2 (08:31→16:59)
[2018-08-27] MEDS: morphine SR 15 MG Tablet PO ×2 (09:48→21:38)
[2018-08-27 16:00] VITALS: BP 114/51; PULSE 66; RESP 18; TEMP 36.8; O2SAT 97
[2018-08-28] MEDS: Doxycycline 100 MG CAPSULE PO ×2 (06:18→16:47)
[2018-08-28] MEDS: Polyethylene Glycol 3350 17 GM PACKET PO (06:18)
[2018-08-28] MEDS: Senna/Docusate Sodium 1 Tablet 2 TABLET PO ×2 (06:18→16:47)
[2018-08-28] MEDS: Citalopram 20 MG Tablet PO (06:19)
[2018-08-28] MEDS: Famotidine 20 MG Tablet PO (06:19)
[2018-08-28] MEDS: Acetaminophen 500 MG Tablet 1000 MG PO ×3 (06:19→21:43)
[2018-08-28] MEDS: morphine SR 15 MG Tablet PO ×2 (10:05→21:43)
[2018-08-28] MEDS: Aspirin 81 MG TAB.CHEW PO ×2 (10:05→16:46)
[2018-08-28] MEDS: traMADol 50 MG Tablet PO ×2 (12:22→18:27)
[2018-08-28 15:38] VITALS: BP 116/54; PULSE 70; RESP 18; TEMP 36.4; O2SAT 93
--- NOTE | 2018-08-28 16:40 | CHAPLAIN ---
Type of Pastoral Visit _x__ Initial Visit ___ Follow-up Visit ___ On-call Visit ___ General Patient Visit ___ Spiritual Assessment ___ Family Conference ___ Bereavement ___ Rapid Response ___ Code Blue ___ Other (describe below) Pastoral Care Referral From _x__ Patient ___ Family ___ Nurse ___ Physician ___ Manifold Operator ___ Master Automotive Technician ___ Other (describe below) Sacrament/Intervention _x__ Active listening ___ Anointing ___ Latter Day ___ Bereavement ___ Communion ___ Alannah exploration ___ _x__ Life review _x__ Prayer ___ Reconciliation ___ Sacrament of Sick ___ Supportive presence ___ Wedding ___ Other (describe below) Pastoral Comments
[2018-08-29] MEDS: traMADol 50 MG Tablet PO ×2 (03:45→19:45)
[2018-08-29] MEDS: Senna/Docusate Sodium 1 Tablet 2 TABLET PO ×2 (06:25→17:20)
[2018-08-29] MEDS: Acetaminophen 500 MG Tablet 1000 MG PO ×3 (06:25→21:45)
[2018-08-29] MEDS: Doxycycline 100 MG CAPSULE PO ×2 (06:25→17:20)
[2018-08-29] MEDS: Polyethylene Glycol 3350 17 GM PACKET PO (06:26)
[2018-08-29] MEDS: Famotidine 20 MG Tablet PO (06:26)
[2018-08-29] MEDS: Citalopram 20 MG Tablet PO (06:26)
[2018-08-29] MEDS: Aspirin 81 MG TAB.CHEW PO ×2 (08:16→17:20)
[2018-08-29 09:28] VITALS: BP 108/44; PULSE 85; RESP 18; O2SAT 95
--- NOTE | 2018-08-29 10:12 | CASEMGMT ---
Plan of care meeting held on this date with pt and dgt Richa present. Pt is receiving PT/OT and progressing with therapy. No d/c date set at this time. Pt plans to return home where she lives alone with family next door who are able to assist as needed. Pt stating she would like outpt PT at [facility] for continued therapy after stay in TCU is complete. Will continue with treatment plan at this time. INÉS Burch
[2018-08-29] MEDS: morphine SR 15 MG Tablet PO ×2 (12:00→21:45)
[2018-08-29 15:25] VITALS: BP 84/45; PULSE 62; RESP 18; TEMP 37.2; O2SAT 94
[2018-08-30] MEDS: Citalopram 20 MG Tablet PO (06:03)
[2018-08-30] MEDS: Polyethylene Glycol 3350 17 GM PACKET PO (06:03)
[2018-08-30] MEDS: Famotidine 20 MG Tablet PO (06:03)
[2018-08-30] MEDS: Senna/Docusate Sodium 1 Tablet 2 TABLET PO ×2 (06:03→16:56)
[2018-08-30] MEDS: Doxycycline 100 MG CAPSULE PO (06:03)
[2018-08-30] MEDS: Acetaminophen 500 MG Tablet 1000 MG PO ×3 (06:03→21:28)
[2018-08-30] MEDS: Aspirin 81 MG TAB.CHEW PO ×2 (08:10→16:56)
--- NOTE | 2018-08-30 10:20 | MDS.RN ---
Pain interview for columba 09/01/18 completed.
[2018-08-30] MEDS: traMADol 50 MG Tablet PO (13:09)
--- NOTE | 2018-08-30 13:35 | CASEMGMT ---
Addendum entered by Glenys Aguilar 08/30/18 15:04: Student social work MDS documentation reviewed. INÉS Burch Original Note: Brief interview for mental status (BIMS) and mood (PHQ-9) completed on this day. BIMS score . PHQ-9 score 07/11. Zach Olea social work student
[2018-08-30 15:33] VITALS: BP 110/57; PULSE 65; RESP 18; TEMP 36.7; O2SAT 95
[2018-08-31] MEDS: traMADol 50 MG Tablet PO ×4 (01:43→22:17)
[2018-08-31] MEDS: Famotidine 20 MG Tablet PO (06:05)
[2018-08-31] MEDS: Senna/Docusate Sodium 1 Tablet 2 TABLET PO ×2 (06:05→16:40)
[2018-08-31] MEDS: Polyethylene Glycol 3350 17 GM PACKET PO (06:05)
[2018-08-31] MEDS: Citalopram 20 MG Tablet PO (06:05)
[2018-08-31] MEDS: Acetaminophen 500 MG Tablet 1000 MG PO ×3 (06:05→21:41)
--- NOTE | 2018-08-31 06:19 | NURSING ---
Mepilex dressing removed from Lt knee per order. Scant amount of drainage noted to distal end of incision. Stapled intact. Incision cleansed with NS and ABD applied. Pt tolerated well. Pt resting in bed with call light in reach.
--- NOTE | 2018-08-31 07:47 | PCM.PN.RX ---
<Dustin Hendrickson D - Last Filed: 08/31/18 07:47> Progress Note - Pharmacy Subjective: TCU Admission Objective: Allergies codeine Allergy (Verified 08/22/18 05:52) Shortness of breath Penicillins [PCN] Allergy (Verified 08/22/18 05:52) Shortness of breath Sulfa (Sulfonamide Antibiotics) Allergy (Verified 08/22/18 05:52) Swelling Current Medications Generic Name Dose Route Start Last Admin Trade Name Freq PRN Reason Stop Dose Admin Acetaminophen 1,000 mg 08/25/18 22:00 08/31/18 06:05 Tylenol PO 1,000 mg Q8 MAHOGANY Administration Aspirin 81 mg 08/25/18 17:00 08/30/18 16:56 Aspirin, Baby PO 09/21/18 23:39 81 mg BIDCM MAHOGANY Administration Bisacodyl 10 mg 08/25/18 19:25 Dulcolax PO DAILY PRN Constipation Cholecalciferol 1,000 unit 08/26/18 06:00 08/31/18 06:05 Vitamin D PO 1,000 unit DAILY MAHOGANY Administration Citalopram Hydrobromide 20 mg 08/26/18 06:00 08/31/18 06:05 Celexa PO 20 mg DAILY MAHOGANY Administration Cyanocobalamin 1,000 mcg 09/07/18 06:00 Vitamin B12 SC QMONTH [facility] Famotidine 20 mg 08/26/18 06:00 08/31/18 06:05 Pepcid PO 20 mg DAILY MAHOGANY Administration Polyethylene Glycol 17 gm 08/26/18 06:00 08/31/18 06:05 Miralax PO 17 gm DAILY MAHOGANY Administration Senna/Docusate Sodium 2 tablet 08/25/18 18:00 08/31/18 06:05 Senokot-S, Beatriz-Colace PO 2 tablet BID [facility] Administration Tramadol HCl 50 mg 08/25/18 19:26 08/31/18 01:43 Ultram PO 50 mg Q6H PRN PRN Administration MODERATE PAIN (4-5/10) Tuberculin PPD 5 tu 09/02/18 10:00 Tubersol, Aplisol, Ppd ID 09/02/18 10:01 X1 ONE Problem List Left knee pain (Acute) Osteoarthritis of knees, bilateral (Chronic) Depression (Chronic) Kidney tumor (Chronic) Body mass index (BMI) 40.0-44.9, adult (Chronic) Vital Signs Temp Pulse Resp BP Pulse Ox 98.1 F 65 18 110/57 L 95 08/30/18 15:33 08/30/18 15:33 08/30/18 15:33 08/30/18 15:33 08/30/18 15:33 Oxygen Delivery Method Room Air Weight: 113.625 kg Body Mass Index (BMI) 43.7 Sodium 142 mmol/L (136-145) 08/26/18 05:05 Potassium 4.6 mmol/L (3.5-5.1) 08/26/18 05:05 Chloride 108 mmol/L (98-107) H 08/26/18 05:05 Carbon Dioxide 30.0 mmol/L (21.0-32.0) 08/26/18 05:05 Anion Gap 4 (5-15) L 08/26/18 05:05 BUN 13 mg/dL (7-18) 08/26/18 05:05 Creatinine 0.63 mg/dL (0.55-1.02) 08/26/18 05:05 Est GFR (MDRD) Af Amer 121 mL/min (>60) 08/26/18 05:05 Est GFR (MDRD) Non-Af 100 mL/min (>60) 08/26/18 05:05 BUN/Creatinine Ratio 20.7 RATIO (10-20) H 08/26/18 05:05 Glucose 87 mg/dL (74-106) 08/26/18 05:05 Assessment/Plan: 1) Pain APAP, tramadol for moderate pain. Continue to monitor prn medication use, daily pain scores. 2) DVT PPx ASA. Continue to monitor s/s bleeding/clot. 3) GI Famotidine. Continue to monitor s/s GI distress. 4) Nutrition B12, D. Continue to monitor clinically. Psychotropic Medications: 5) Depression Citalopram. Continue to monitor s/s depression. Unnecessary Medications: None Bowel Regimen: 6) Senna/s, PEG, prn bisacodyl. Continue to monitor prn medication use, for constipation/diarrhea. Date of Note:: 08/31/18 - Provider Comments Provider responsibility: Provider responsible to enter orders to implement recommendations <Nate Mott Chi - Last Filed: 08/31/18 08:14> Progress Note - Pharmacy Subjective: [] Objective: Allergies codeine Allergy (Verified 08/22/18 05:52) Shortness of breath Penicillins [PCN] Allergy (Verified 08/22/18 05:52) Shortness of breath Sulfa (Sulfonamide Antibiotics) Allergy (Verified 08/22/18 05:52) Swelling Current Medications Generic Name Dose Route Start Last Admin Trade Name Freq PRN Reason Stop Dose Admin Acetaminophen 1,000 mg 08/25/18 22:00 08/31/18 06:05 Tylenol PO 1,000 mg Q8 MAHOGANY Administration Aspirin 81 mg 08/25/18 17:00 08/30/18 16:56 Aspirin, Baby PO 09/21/18 23:39 81 mg BIDCM MAHOGANY Administration Bisacodyl 10 mg 08/25/18 19:25 Dulcolax PO DAILY PRN Constipation Cholecalciferol 1,000 unit 08/26/18 06:00 08/31/18 06:05 Vitamin D PO 1,000 unit DAILY MAHOGANY Administration Citalopram Hydrobromide 20 mg 08/26/18 06:00 08/31/18 06:05 Celexa PO 20 mg DAILY MAHOGANY Administration Cyanocobalamin 1,000 mcg 09/07/18 06:00 Vitamin B12 SC QMONTH MAHOGANY Famotidine 20 mg 08/26/18 06:00 08/31/18 06:05 Pepcid PO 20 mg DAILY MAHOGANY Administration Polyethylene Glycol 17 gm 08/26/18 06:00 08/31/18 06:05 Miralax PO 17 gm DAILY MAHOGANY Administration Senna/Docusate Sodium 2 tablet 08/25/18 18:00 08/31/18 06:05 Senokot-S, Beatriz-Colace PO 2 tablet BID MAHOGANY Administration Tramadol HCl 50 mg 08/25/18 19:26 08/31/18 01:43 Ultram PO 50 mg Q6H PRN PRN Administration MODERATE PAIN (4-5/10) Tuberculin PPD 5 tu 09/02/18 10:00 Tubersol, Aplisol, Ppd ID 09/02/18 10:01 X1 ONE Problem List Left knee pain (Acute) Osteoarthritis of knees, bilateral (Chronic) Depression (Chronic) Kidney tumor (Chronic) Body mass index (BMI) 40.0-44.9, adult (Chronic) Vital Signs Temp Pulse Resp BP Pulse Ox 98.1 F 65 18 110/57 L 95 08/30/18 15:33 08/30/18 15:33 08/30/18 15:33 08/30/18 15:33 08/30/18 15:33 Oxygen Delivery Method Room Air Weight: 113.625 kg Body Mass Index (BMI) 43.7 Sodium 142 mmol/L (136-145) 08/26/18 05:05 Potassium 4.6 mmol/L (3.5-5.1) 08/26/18 05:05 Chloride 108 mmol/L (98-107) H 08/26/18 05:05 Carbon Dioxide 30.0 mmol/L (21.0-32.0) 08/26/18 05:05 Anion Gap 4 (5-15) L 08/26/18 05:05 BUN 13 mg/dL (7-18) 08/26/18 05:05 Creatinine 0.63 mg/dL (0.55-1.02) 08/26/18 05:05 Est GFR (MDRD) Af Amer 121 mL/min (>60) 08/26/18 05:05 Est GFR (MDRD) Non-Af 100 mL/min (>60) 08/26/18 05:05 BUN/Creatinine Ratio 20.7 RATIO (10-20) H 08/26/18 05:05 Glucose 87 mg/dL (74-106) 08/26/18 05:05 Assessment/Plan: Psychotropic Medications: Unnecessary Medications: Bowel Regimen: - Provider Comments Provider responsibility: Provider responsible to enter orders to implement recommendations Provider Comments to Recommendations by Pharmacy: Agree
--- NOTE | 2018-08-31 07:50 | PHA.CONS_ITS ---
<Dustin Hendrickson D - Last Filed: 08/31/18 07:47> Progress Note - Pharmacy Subjective: TCU Admission Objective: Allergies codeine Allergy (Verified 08/22/18 05:52) Shortness of breath Penicillins [PCN] Allergy (Verified 08/22/18 05:52) Shortness of breath Sulfa (Sulfonamide Antibiotics) Allergy (Verified 08/22/18 05:52) Swelling Current Medications Generic Name Dose Route Start Last Admin Trade Name Freq PRN Reason Stop Dose Admin Acetaminophen 1,000 mg 08/25/18 22:00 08/31/18 06:05 Tylenol PO 1,000 mg Q8 MAHOGANY Administration Aspirin 81 mg 08/25/18 17:00 08/30/18 16:56 Aspirin, Baby PO 09/21/18 23:39 81 mg BIDCM MAHOGANY Administration Bisacodyl 10 mg 08/25/18 19:25 Dulcolax PO DAILY PRN Constipation Cholecalciferol 1,000 unit 08/26/18 06:00 08/31/18 06:05 Vitamin D PO 1,000 unit DAILY MAHOGANY Administration Citalopram Hydrobromide 20 mg 08/26/18 06:00 08/31/18 06:05 Celexa PO 20 mg DAILY MAHOGANY Administration Cyanocobalamin 1,000 mcg 09/07/18 06:00 Vitamin B12 SC QMONTH [facility] Famotidine 20 mg 08/26/18 06:00 08/31/18 06:05 Pepcid PO 20 mg DAILY MAHOGANY Administration Polyethylene Glycol 17 gm 08/26/18 06:00 08/31/18 06:05 Miralax PO 17 gm DAILY MAHOGANY Administration Senna/Docusate Sodium 2 tablet 08/25/18 18:00 08/31/18 06:05 Senokot-S, Beatriz-Colace PO 2 tablet BID [facility] Administration Tramadol HCl 50 mg 08/25/18 19:26 08/31/18 01:43 Ultram PO 50 mg Q6H PRN PRN Administration MODERATE PAIN (4-5/10) Tuberculin PPD 5 tu 09/02/18 10:00 Tubersol, Aplisol, Ppd ID 09/02/18 10:01 X1 ONE Problem List Left knee pain (Acute) Osteoarthritis of knees, bilateral (Chronic) Depression (Chronic) Kidney tumor (Chronic) Body mass index (BMI) 40.0-44.9, adult (Chronic) Vital Signs Temp Pulse Resp BP Pulse Ox 98.1 F 65 18 110/57 L 95 08/30/18 15:33 08/30/18 15:33 08/30/18 15:33 08/30/18 15:33 08/30/18 15:33 Oxygen Delivery Method Room Air Weight: 113.625 kg Body Mass Index (BMI) 43.7 Sodium 142 mmol/L (136-145) 08/26/18 05:05 Potassium 4.6 mmol/L (3.5-5.1) 08/26/18 05:05 Chloride 108 mmol/L (98-107) H 08/26/18 05:05 Carbon Dioxide 30.0 mmol/L (21.0-32.0) 08/26/18 05:05 Anion Gap 4 (5-15) L 08/26/18 05:05 BUN 13 mg/dL (7-18) 08/26/18 05:05 Creatinine 0.63 mg/dL (0.55-1.02) 08/26/18 05:05 Est GFR (MDRD) Af Amer 121 mL/min (>60) 08/26/18 05:05 Est GFR (MDRD) Non-Af 100 mL/min (>60) 08/26/18 05:05 BUN/Creatinine Ratio 20.7 RATIO (10-20) H 08/26/18 05:05 Glucose 87 mg/dL (74-106) 08/26/18 05:05 Assessment/Plan: 1) Pain APAP, tramadol for moderate pain. Continue to monitor prn medication use, daily pain scores. 2) DVT PPx ASA. Continue to monitor s/s bleeding/clot. 3) GI Famotidine. Continue to monitor s/s GI distress. 4) Nutrition B12, D. Continue to monitor clinically. Psychotropic Medications: 5) Depression Citalopram. Continue to monitor s/s depression. Unnecessary Medications: None Bowel Regimen: 6) Senna/s, PEG, prn bisacodyl. Continue to monitor prn medication use, for constipation/diarrhea. Date of Note:: 08/31/18 - Provider Comments Provider responsibility: Provider responsible to enter orders to implement recommendations <Nate Mott Chi - Last Filed: 08/31/18 08:14> Progress Note - Pharmacy Subjective: [] Objective: Allergies codeine Allergy (Verified 08/22/18 05:52) Shortness of breath Penicillins [PCN] Allergy (Verified 08/22/18 05:52) Shortness of breath Sulfa (Sulfonamide Antibiotics) Allergy (Verified 08/22/18 05:52) Swelling Current Medications Generic Name Dose Route Start Last Admin Trade Name Freq PRN Reason Stop Dose Admin Acetaminophen 1,000 mg 08/25/18 22:00 08/31/18 06:05 Tylenol PO 1,000 mg Q8 MAHOGANY Administration Aspirin 81 mg 08/25/18 17:00 08/30/18 16:56 Aspirin, Baby PO 09/21/18 23:39 81 mg BIDCM MAHOGANY Administration Bisacodyl 10 mg 08/25/18 19:25 Dulcolax PO DAILY PRN Constipation Cholecalciferol 1,000 unit 08/26/18 06:00 08/31/18 06:05 Vitamin D PO 1,000 unit DAILY MAHOGANY Administration Citalopram Hydrobromide 20 mg 08/26/18 06:00 08/31/18 06:05 Celexa PO 20 mg DAILY MAHOGANY Administration Cyanocobalamin 1,000 mcg 09/07/18 06:00 Vitamin B12 SC QMONTH MAHOGANY Famotidine 20 mg 08/26/18 06:00 08/31/18 06:05 Pepcid PO 20 mg DAILY MAHOGANY Administration Polyethylene Glycol 17 gm 08/26/18 06:00 08/31/18 06:05 Miralax PO 17 gm DAILY MAHOGANY Administration Senna/Docusate Sodium 2 tablet 08/25/18 18:00 08/31/18 06:05 Senokot-S, Beatriz-Colace PO 2 tablet BID MAHOGANY Administration Tramadol HCl 50 mg 08/25/18 19:26 08/31/18 01:43 Ultram PO 50 mg Q6H PRN PRN Administration MODERATE PAIN (4-5/10) Tuberculin PPD 5 tu 09/02/18 10:00 Tubersol, Aplisol, Ppd ID 09/02/18 10:01 X1 ONE Problem List Left knee pain (Acute) Osteoarthritis of knees, bilateral (Chronic) Depression (Chronic) Kidney tumor (Chronic) Body mass index (BMI) 40.0-44.9, adult (Chronic) Vital Signs Temp Pulse Resp BP Pulse Ox 98.1 F 65 18 110/57 L 95 08/30/18 15:33 08/30/18 15:33 08/30/18 15:33 08/30/18 15:33 08/30/18 15:33 Oxygen Delivery Method Room Air Weight: 113.625 kg Body Mass Index (BMI) 43.7 Sodium 142 mmol/L (136-145) 08/26/18 05:05 Potassium 4.6 mmol/L (3.5-5.1) 08/26/18 05:05 Chloride 108 mmol/L (98-107) H 08/26/18 05:05 Carbon Dioxide 30.0 mmol/L (21.0-32.0) 08/26/18 05:05 Anion Gap 4 (5-15) L 08/26/18 05:05 BUN 13 mg/dL (7-18) 08/26/18 05:05 Creatinine 0.63 mg/dL (0.55-1.02) 08/26/18 05:05 Est GFR (MDRD) Af Amer 121 mL/min (>60) 08/26/18 05:05 Est GFR (MDRD) Non-Af 100 mL/min (>60) 08/26/18 05:05 BUN/Creatinine Ratio 20.7 RATIO (10-20) H 08/26/18 05:05 Glucose 87 mg/dL (74-106) 08/26/18 05:05 Assessment/Plan: Psychotropic Medications: Unnecessary Medications: Bowel Regimen: - Provider Comments Provider responsibility: Provider responsible to enter orders to implement recommendations Provider Comments to Recommendations by Pharmacy: Agree
[2018-08-31] MEDS: Aspirin 81 MG TAB.CHEW PO ×2 (08:56→16:40)
[2018-08-31 15:19] VITALS: BP 95/53; PULSE 66; RESP 16; TEMP 36.8; O2SAT 95
[2018-09-01] MEDS: Famotidine 20 MG Tablet PO (05:33)
[2018-09-01] MEDS: Citalopram 20 MG Tablet PO (05:33)
[2018-09-01] MEDS: Acetaminophen 500 MG Tablet 1000 MG PO ×3 (05:34→22:06)
[2018-09-01] MEDS: Senna/Docusate Sodium 1 Tablet 2 TABLET PO ×2 (05:34→17:44)
[2018-09-01] MEDS: traMADol 50 MG Tablet PO ×2 (09:22→22:06)
[2018-09-01] MEDS: Aspirin 81 MG TAB.CHEW PO ×2 (09:22→17:44)
[2018-09-01 16:00] VITALS: BP 120/55; PULSE 69; RESP 18; TEMP 36.4; O2SAT 95
[2018-09-02 06:07] LABS: Absolute Lymphocyte Count 1.58 X10^3/ul (0.83-4.51); Absolute Neutrophil Count 1.8 X10^3/uL (2.0-7.7); Basophil# 0.03 X10^3/uL; Basophil% 0.8 % (0-1); Eosinophils% 2.6 % (0-5); Hematocrit 37.8 % (37-47); Hemoglobin 12.1 g/dl (12.0-15.0); Lymphocyte # 1.58 X10^3/ul (4.0); Lymphocyte % 40.6 % (19-41); Mean Corpuscular Hgb 31.1 pg (27.0-32.0); Mean Corpuscular Volume 97.2 fL (81-99); Monocyte# 0.42 X10^3/uL; Monocyte% 10.8 % (0-10); Neutrophil # 1.75 X10^3/uL (2.7-7.7); Neutrophil % 44.9 % (47-70); Platelet Count 280 K/mm3 (150-450); RBC Distribution Width CV 13.7 % (11.6-14.6); RBC Distribution Width SD 47.4 fl (35.1-43.9); Red Blood Count 3.89 M/mm3 (4.2-5.4); White Blood Count 3.9 K/mm3 (4.4-11.0)
[2018-09-02 06:10] LABS: POSITIVE COUNT NO; POSITIVE DIFFERENTIAL NO; POSITIVE MORPHOLOGY NO
[2018-09-02] MEDS: traMADol 50 MG Tablet PO ×3 (06:17→22:08)
[2018-09-02] MEDS: Acetaminophen 500 MG Tablet 1000 MG PO ×3 (06:17→22:09)
[2018-09-02] MEDS: Citalopram 20 MG Tablet PO (06:18)
[2018-09-02] MEDS: Famotidine 20 MG Tablet PO (06:18)
[2018-09-02] MEDS: Senna/Docusate Sodium 1 Tablet 2 TABLET PO ×2 (06:18→17:05)
[2018-09-02 06:25] LABS: Anion Gap 4 (5-15); BUN 16 mg/dL (7-18); BUN/Creat Ratio 19.8 RATIO (10-20); Calcium,Total 9.3 mg/dL (8.5-10.1); Chloride 105 mmol/L (98-107); Creatinine, Serum 0.81 mg/dL (0.55-1.02); EST Glomerular Filtration Rate 75 mL/min (>60); Est Glom Filt Rate - Afr Amer 91 mL/min (>60); Glucose 90 mg/dL (74-106); Potassium 4.2 mmol/L (3.5-5.1); Sodium Level 140 mmol/L (136-145)
[2018-09-02] MEDS: Aspirin 81 MG TAB.CHEW PO ×2 (09:31→17:04)
[2018-09-02] MEDS: Tuberculin,Purif.prot.deriv. 50 TU/ML Vial 5 ML ID (11:57)
[2018-09-02 15:26] VITALS: BP 123/52; PULSE 67; RESP 18; TEMP 36.3; O2SAT 94
[2018-09-03] MEDS: Acetaminophen 500 MG Tablet 1000 MG PO ×3 (05:25→21:09)
[2018-09-03] MEDS: traMADol 50 MG Tablet PO ×3 (05:25→17:23)
[2018-09-03] MEDS: Famotidine 20 MG Tablet PO (05:26)
[2018-09-03] MEDS: Senna/Docusate Sodium 1 Tablet 2 TABLET PO ×2 (05:26→17:24)
[2018-09-03] MEDS: Citalopram 20 MG Tablet PO (05:26)
[2018-09-03] MEDS: Aspirin 81 MG TAB.CHEW PO ×2 (08:11→17:24)
[2018-09-03 16:00] VITALS: BP 104/70; PULSE 65; RESP 20; TEMP 36; O2SAT 97
[2018-09-03 19:44] VITALS: O2SAT 98
[2018-09-04] MEDS: traMADol 50 MG Tablet PO ×3 (04:11→22:15)
[2018-09-04] MEDS: Famotidine 20 MG Tablet PO (06:26)
[2018-09-04] MEDS: Citalopram 20 MG Tablet PO (06:26)
[2018-09-04] MEDS: Acetaminophen 500 MG Tablet 1000 MG PO ×3 (06:26→22:07)
[2018-09-04] MEDS: Senna/Docusate Sodium 1 Tablet 2 TABLET PO ×2 (06:26→17:32)
[2018-09-04] MEDS: Aspirin 81 MG TAB.CHEW PO ×2 (07:48→17:32)
[2018-09-04 16:00] VITALS: BP 128/66; PULSE 71; RESP 18; TEMP 36.3; O2SAT 96
[2018-09-05] MEDS: Famotidine 20 MG Tablet PO (06:23)
[2018-09-05] MEDS: Acetaminophen 500 MG Tablet 1000 MG PO ×3 (06:23→21:52)
[2018-09-05] MEDS: Senna/Docusate Sodium 1 Tablet 2 TABLET PO ×2 (06:23→16:51)
[2018-09-05] MEDS: Citalopram 20 MG Tablet PO (06:23)
[2018-09-05] MEDS: traMADol 50 MG Tablet PO ×2 (06:26→12:26)
[2018-09-05] MEDS: Aspirin 81 MG TAB.CHEW PO ×2 (09:10→16:51)
--- NOTE | 2018-09-05 11:32 | NURSING ---
Patient returned from appointment with DONAL Barraza, dori on 10/04/18 at 1000.
--- NOTE | 2018-09-05 14:52 | CASEMGMT ---
Social Work SW met with pt and daughter in room and pt requesting d/c home on Monday09/08/18. Pt will be returning to her home where she lives alone and son and daughter in law live in adjacent house and can assist as needed. Therapy is recommending outpt PT and pt is agreeable and would like to use [employer]. Pt states she does have transportation to [facility] and transportation home. Pt has needed DME. Pt dgt agreeable with d/c plan. Referral made to [facility] and PT appointment made for Tuesday 09/12 at 1300. Pt notified and agreeable to date and time. No further d/c needs. Plan: Home 09/08/18 alone with support of family. Outpatient PT at [facility]
[2018-09-05 16:00] VITALS: BP 98/66; PULSE 68; RESP 18; TEMP 36.3; O2SAT 98
--- NOTE | 2018-09-05 22:02 | DCINST_ITS ---
- Discharge Diagnoses Current Active Problems: Current Active and Chronic Problems Left knee pain (Acute) Osteoarthritis of knees, bilateral (Chronic) Depression (Chronic) Kidney tumor (Chronic) Body mass index (BMI) 40.0-44.9, adult (Chronic) You will use the following diet at home:: No restrictions, Regular Your food should be the consistency of: Regular Your liquids should be the consistency of: Regular/Thin Discharge Activity: Return to Normal Activity, May Shower, Use Walker Weight Bearing Status: Weight bearing as tolerated Call your doctor if you observe: Fever of 101 or Higher, Inability to urinate, Inability to have a bowel movement, Shortness of breath, Chest pain, Uncontrolled pain Allergies/Adverse Reactions: Allergies codeine Allergy (Verified 08/22/18 05:52) Shortness of breath Penicillins [PCN] Allergy (Verified 08/22/18 05:52) Shortness of breath Sulfa (Sulfonamide Antibiotics) Allergy (Verified 08/22/18 05:52) Swelling Medications to take at Discharge Biotin 1 mg PO DAILY 08/06/18 Cholecalciferol (VIT D3) [Vitamin D3] 1,000 unit PO DAILY 08/06/18 Citalopram [Celexa] 20 mg PO DAILY 08/06/18 Cyanocobalamin (Vitamin B-12) [Cyanocobalamin Injection] 1,000 mcg IJ QMONTH 08/06/18 Pedi Multivit No.25/Folic Acid [Children Multivitamin Chew Tab] 300 mcg PO DAILY 08/06/18 Acetaminophen [Tylenol] 1,000 mg PO Q8 08/25/18 Aspirin [Aspirin, Baby] 81 mg PO BIDCM #26 tab.chew 09/05/18 Famotidine [Pepcid] 20 mg PO DAILY #30 tablet 09/05/18 Polyethylene Glycol 3350 [Miralax] 17 gm PO DAILY #30 packet 09/05/18 Senna/Docusate Sodium [Senokot-S] 2 tablet PO BID #120 tablet 09/05/18 traMADol [Ultram] 50 mg PO Q6H PRN PRN 7 Days #30 tab 09/05/18 The following prescriptions were given: traMADol [Ultram] 50 mg PO Q6H PRN PRN 7 Days #30 tab PRN Reason: Moderate Pain (4-5/10) Famotidine [Pepcid] 20 mg PO DAILY #30 tablet Polyethylene Glycol 3350 [Miralax] 17 gm PO DAILY #30 packet Aspirin [Aspirin, Baby] 81 mg PO BIDCM #26 tab.chew Senna/Docusate Sodium [Senokot-S] 2 tablet PO BID #120 tablet Primary Care Physician: Gregory Foss MD [Primary Care Provider] - Please follow up with your Primary Care Physician in: 1 week. Test Results: Test results from this visit will be discussed in further detail at your follow- up appointment, if applicable. Please Follow Up With: Orion Breaux PA-C When: As scheduled. Please Follow Up With: [facility] - Physical Therapy Proposed Discharge Date: 09/08/18
--- NOTE | 2018-09-05 22:02 | PCM.DC.SUM ---
Discharge Date and Diagnosis - Problem List Patient Problems: Active and Suspected Problems Left knee pain (Acute) Date of Admission: 08/25/18 Date of Discharge: 09/08/18 - Primary Discharge Diagnosis Active and Suspected Problems Left knee pain (Acute) - Secondary Discharge Diagnosis Chronic Problems Osteoarthritis of knees, bilateral (Chronic) Depression (Chronic) Kidney tumor (Chronic) Body mass index (BMI) 40.0-44.9, adult (Chronic) Hospital Course and Treatment Imaging Results: 08/25/18 14:43 Diet: Regular Diet Operations: None Procedures: None Summary of Care Provided: The patient is a 68 year old Female with below past medical history hospitalized for left total knee replacement revision all components 08/22/[address] Oneal, admitted to TCU with debility, here for rehabilitation, strengthening, prior to discharge home alone. Discharge home alone with support from family, outpatient physical therapy at [facility]. Patient Problems: Active and Suspected Problems Left knee pain (Acute) - Physical Exam Vital Signs Temp Pulse Resp BP Pulse Ox 97.4 F L 68 18 98/66 98 09/05/18 16:00 09/05/18 16:00 09/05/18 16:00 09/05/18 16:00 09/05/18 16:00 Oxygen Delivery Method Room Air Weight: 108.862 kg Body Mass Index (BMI) 43.7 Intake and Output for Last 24 Hours 09/03/18 09/04/18 09/05/18 23:59 23:59 23:59 Intake Total 540 / 540 600 / 600 660 / 660 Balance 540 / 540 600 / 600 660 / 660 Discharge Diet: No Restrictions Discharge Activity: Return to Normal Activity, May Shower, Use Walker Weight Bearing Status: Weight bearing as tolerated Call your doctor if you observe: Fever of 101 or Higher, Inability to urinate, Inability to have a bowel movement, Shortness of breath, Chest pain, Uncontrolled pain Home Medications: Medications to take at Discharge Biotin 1 mg PO DAILY 08/06/18 Cholecalciferol (VIT D3) [Vitamin D3] 1,000 unit PO DAILY 08/06/18 Citalopram [Celexa] 20 mg PO DAILY 08/06/18 Cyanocobalamin (Vitamin B-12) [Cyanocobalamin Injection] 1,000 mcg IJ QMONTH 08/06/18 Pedi Multivit No.25/Folic Acid [Children Multivitamin Chew Tab] 300 mcg PO DAILY 08/06/18 Acetaminophen [Tylenol] 1,000 mg PO Q8 08/25/18 Aspirin [Aspirin, Baby] 81 mg PO BIDCM #26 tab.chew 09/05/18 Famotidine [Pepcid] 20 mg PO DAILY #30 tablet 09/05/18 Polyethylene Glycol 3350 [Miralax] 17 gm PO DAILY #30 packet 09/05/18 Senna/Docusate Sodium [Senokot-S] 2 tablet PO BID #120 tablet 09/05/18 traMADol [Ultram] 50 mg PO Q6H PRN PRN 7 Days #30 tab 09/05/18 Following Prescrptions Were Given to Patient: traMADol [Ultram] 50 mg PO Q6H PRN PRN 7 Days #30 tab PRN Reason: Moderate Pain (4-5/10) Famotidine [Pepcid] 20 mg PO DAILY #30 tablet Polyethylene Glycol 3350 [Miralax] 17 gm PO DAILY #30 packet Aspirin [Aspirin, Baby] 81 mg PO BIDCM #26 tab.chew Senna/Docusate Sodium [Senokot-S] 2 tablet PO BID #120 tablet Primary Care Physician: Gregory Foss MD [Primary Care Provider] - Please follow up with your Primary Care Physician in: 1 week. Please Follow Up With: Oroin Breaux PA-C When: As scheduled. Please Follow Up With: [facility] Disposition: Home Minutes spent on discharge:: 30 Patient Condition:: Good Medical Necessity - Tobacco Use Smoking Status: Never smoker Tobacco Use: Non-smoker Meaningful Use Info Meaningful Use Diagnoses (Choose all that apply): None applicable
[2018-09-06] MEDS: Citalopram 20 MG Tablet PO (06:30)
[2018-09-06] MEDS: Famotidine 20 MG Tablet PO (06:31)
[2018-09-06] MEDS: Senna/Docusate Sodium 1 Tablet 2 TABLET PO ×2 (06:31→16:55)
[2018-09-06] MEDS: Acetaminophen 500 MG Tablet 1000 MG PO ×3 (06:31→21:55)
--- NOTE | 2018-09-06 07:29 | MDS.RN ---
Information for the mds was obtained from review of the clinical record, interview of resident, staff, and direct observation of resident's care.
[2018-09-06] MEDS: Aspirin 81 MG TAB.CHEW PO ×2 (08:52→16:55)
[2018-09-06] MEDS: traMADol 50 MG Tablet PO ×2 (08:53→19:58)
[2018-09-06 15:30] VITALS: BP 132/69; PULSE 98; RESP 18; TEMP 36.7; O2SAT 94
--- NOTE | 2018-09-06 15:33 | NURSING ---
Pt in therapy, c/o not feeling right, very tired. C/o feeling lightheaded, vs wnl, denies sob, nausea, n/t, jaw pain, chest heaviness, hr is regular. States she just feels tired, maybe not drinking as much water today. Encouraged to drink more fluids, states she can finish therapy.
[2018-09-06 15:36] LABS: Bedside Glucose 136 mg/dL (70-110)
[2018-09-07] MEDS: Senna/Docusate Sodium 1 Tablet 2 TABLET PO ×2 (06:13→16:41)
[2018-09-07] MEDS: Citalopram 20 MG Tablet PO (06:13)
[2018-09-07] MEDS: Acetaminophen 500 MG Tablet 1000 MG PO ×3 (06:13→21:33)
[2018-09-07] MEDS: Famotidine 20 MG Tablet PO (06:13)
[2018-09-07] MEDS: Cyanocobalamin (B12) 1,000 MCG/ML Vial 1000 MCG SC (06:16)
[2018-09-07] MEDS: Aspirin 81 MG TAB.CHEW PO ×2 (08:09→16:42)
[2018-09-07] MEDS: traMADol 50 MG Tablet PO ×2 (09:32→21:32)
--- NOTE | 2018-09-07 10:14 | CASEMGMT ---
Addendum entered by Glenys Aguilar 09/07/18 13:52: Student social work MDS documentation reviewed. [facility] Original Note: Brief interview for mental status (BIMS) and mood (PHQ-9) completed on this day. BIMS score . PHQ-9 score 07/11. Zach Olea social work student
--- NOTE | 2018-09-07 14:57 | MDS.RN ---
Pain interview for [facility] 09/08/18 completed.
[2018-09-07 16:00] VITALS: BP 106/66; PULSE 65; RESP 16; TEMP 37.6; O2SAT 94
[2018-09-08] MEDS: Acetaminophen 500 MG Tablet 1000 MG PO (06:12)
[2018-09-08] MEDS: Famotidine 20 MG Tablet PO (06:13)
[2018-09-08] MEDS: Senna/Docusate Sodium 1 Tablet 2 TABLET PO (06:13)
[2018-09-08] MEDS: Citalopram 20 MG Tablet PO (06:13)
[2018-09-08] MEDS: Aspirin 81 MG TAB.CHEW PO (08:37)
[2018-09-08] MEDS: traMADol 50 MG Tablet PO (08:39)
[2018-09-08 12:14] VITALS: BP 124/75; PULSE 72; RESP 18; TEMP 36.5; O2SAT 94
== END 2018-09-08 13:00 | disposition home or self-care (01) | DRG 561 ==
PROVIDERS: Admitting Provider Family Medicine Geriatric Medicine; Family Provider Family Medicine; PCP Family Medicine; Visit Provider Family Medicine Geriatric Medicine
DX: Z47.1 Aftercare following joint replacement surgery (principal); Z96.652 Presence of left artificial knee joint; F32.9 Major depressive disorder, single episode, unspecified; Z98.84 Bariatric surgery status; E55.9 Vitamin D deficiency, unspecified; K21.9 Gastro-esophageal reflux disease without esophagitis
CPT/HCPCS: 36415; 80048; 82962; 85025; 97110; 97116; 97162; 97165; 97530; 97535; 97802; J3420

== ENCOUNTER 2018-10-01 14:30 | Outpatient (RCR) | payer MEDICARE, MEDICAID, SELFPAY ==
--- NOTE | 2018-09-12 13:50 | HP.PTEVAL ---
Patient's Visit Information NATALIO ADAIR is a 68 year old F referred to Physical Therapy by Nate Mott MD with a diagnosis of L TKA revision. Date of Evaluation: 09/12/18 Physical Therapist: Alex Tello, ESTEFANÍAT, OCS, CSCS - Visit Plan Frequency: 2x /Week Duration: 4-6 Weeks Plan: 2x/week for 4-6 weeks as needed for. 1. ROM, strength L knee. 2. Gait and stair progression. 3. ES and ice for pain control and management. - Subjective Findings: 2002 L TKA, fell two years ago and damaged it and had revision. More painful and unstable over winter in [facility] and harder to walk. No AD used prior to reinjury. Sent tramadol this winter and could walk again but fell the end of June when it got like a knife. L TKA 08/22/18 3 weeks ago. Was in TCU for 2 weeks and home Monday 5 days ago. Today pain is 6/10 worse than TCU but forgot pain meds. Doing bed exercises and keeps it limbered. Using wh walker most of time but cane at times at home. Says knee cap fell out when he opened it. Sleep is just OK. Stiff in am with pain until she moves it. Able to dress , shower , bath, but not doing cleaning or food. Daughter lives right by her and cooks. Hobbies include hanging out with children adn cooking whcih she currently has hard time getting out of house. Wants to walk for fitness. - Pain L knee Pain Intensity (Out of 10): 6 Pain Intensity Range: 1, 8 - Objective Walks with wh walker I with L antalgia, No steps today but does well on the rest of the FGA without walker. Short L LE stance time. Trasnfers are I to stiand stand and needs Min A supine to sit. 0-117 AROM L knee adn 0-132 R knee. Good patellar mobility. L incision healed well adn no drainage or excessive redness heat or swelling. Poor confidence in WB L. Slightly swollen L vs. R. Sensation slightly dimished laterally at L knee. strength L knee 3, R 4/5. Hip strength 4- B, ankle strength 4+. - Goals Goal 1:: 0-130 aROM adn pain 0-2/10 at most. Goal Time Frame: 4-6 Weeks Goal 2:: Patient feel 80% better overall. Goal Time Frame: 4-6 Weeks Goal 3:: Sleep without pain at night Goal Time Frame: 4-6 Weeks Goal 4:: Patient back to self cooking adn cleaning without symptoms. Goal Time Frame: 4-6 Weeks - Rehabilitation Potential Physical Therapy Diagnosis: L TKA revision with pain and mobility deficits. Rehabilitation Potential: Good - Anticipated Interventions Patient/Client Instruction: Educate patient on: Condition, Plan of Care For the Purpose of:: To improve muscle performance and motor function, To increase tolerance to activity/condition/position, To improve ability of physical actions for home/community/work/leisure Therapeutic Exercise to Include: Strength training, Flexibilty training, Gait and locomotor training, Passive ROM, Active ROM For the Purpose of:: To decrease pain, To increase ROM, To improve muscle performance and motor function, To increase tolerance to activity/condition/position, To improve performance and independence with ADL's Manual Therapy Techniques to Include: Mobilization For the Purpose of:: To increase ROM TENS: Yes Cryotherapy (ice pack, ice massage): Yes For the Purpose of:: To decrease pain, To increase ROM, To improve muscle performance and motor function, To improve ability of physical actions for home/community/work/leisure, To improve gait and locomotor functions Thank you for the opportunity to evaluate your patient. For Medicare and Medicare HMO plans, please review the plan of care and approve it. It will need to be FAXED BACK to us at [phone] for Medicare purposes. For Medicare only, by signing this I certify the plan of care. Please let me know if there are questions or concerns regarding this plan of care. Physician Signature: Date:
--- NOTE | 2018-10-09 10:46 | HP.PT.NRP ---
HP - Discharge Summary (1) - Patient Information NATALIO ADAIR was seen in my office for initial evaluation on 09/12/18. The following Plan of Care was established for this patient: Initial Frequency: 2x /Week Initial Duration: 4-6 Weeks - Anticipated Interventions Patient/Client Instruction: Educate patient on: Condition, Plan of Care For the Purpose of:: To improve muscle performance and motor function, To increase tolerance to activity/condition/position, To improve ability of physical actions for home/community/work/leisure Therapeutic Exercise to Include: Strength training, Flexibilty training, Gait and locomotor training, Passive ROM, Active ROM For the Purpose of:: To decrease pain, To increase ROM, To improve muscle performance and motor function, To increase tolerance to activity/condition/position, To improve performance and independence with ADL's Manual Therapy Techniques to Include: Mobilization For the Purpose of:: To increase ROM TENS: Yes Cryotherapy (ice pack, ice massage): Yes For the Purpose of:: To decrease pain, To increase ROM, To improve muscle performance and motor function, To improve ability of physical actions for home/community/work/leisure, To improve gait and locomotor functions This patient was last seen in our office 10/01/18. Pertinent comments regarding their Physical therapy will appear below: Pt seen 6 visits and has called to cancel the rest of the visits stating that doctor said she is doing good Will discontinue at patients request. At this point I will be discontinuing this patient from physical therapy. I would be happy to see this patient again in the future if found appropriate by the physician. Thank you! Alex Tello, DPT, OCS, CSCS
== END 2018-10-01 19:00 | disposition home or self-care (01) ==
LOC: PT 14:30
PROVIDERS: Family Provider Family Medicine; PCP Family Medicine; Referring Provider Family Medicine Geriatric Medicine; Visit Provider Family Medicine Geriatric Medicine
DX: Z98.890 Other specified postprocedural states (principal)
CPT/HCPCS: 97014; 97110; 97162; G0283

== ENCOUNTER → 2018-10-04 10:13 | Outpatient (CLI) | payer MEDICARE, MEDICAID, SELFPAY ==
[2018-10-04 11:55] LABS: Hematocrit 40.2 % (37-47); Hemoglobin 12.8 g/dl (12.0-15.0); Mean Corp Hgb Conc 31.8 g/gl (32-36); Mean Corpuscular Volume 97.3 fL (81-99); Mean Platelet Vol. 9.9 fl (6.2-12.0); Platelet Count 221 K/mm3 (150-450); RBC Distribution Width CV 14.1 % (11.6-14.6); RBC Distribution Width SD 48.5 fl (35.1-43.9); Red Blood Count 4.13 M/mm3 (4.2-5.4); White Blood Count 4.9 K/mm3 (4.4-11.0)
[2018-10-04 11:56] LABS: Scan Indicated on CBC? Y/N NO
[2018-10-04 12:20] LABS: Vitamin B12 532 pg/mL (211-911); Vitamin D,25 Hydroxy 38.1 ng/mL (29.95-100.01)
[2018-10-04 12:50] LABS: AST(SGOT) 27 U/L (15-37); Alanine Aminotransfer ALT/SGPT 26 U/L (13-56); Albumin, Serum 3.5 g/dL (3.2-5.0); Alkaline Phosphatase 122 U/L (45-117); Anion Gap 3 (5-15); BUN 16 mg/dL (7-18); Calcium,Total 8.9 mg/dL (8.5-10.1); Chloride 105 mmol/L (98-107); Cholesterol 160 mg/dL (200); Creatinine, Serum 0.73 mg/dL (0.55-1.02); EST Glomerular Filtration Rate 85 mL/min (>60); Est Glom Filt Rate - Afr Amer 103 mL/min (>60); Ferritin 144 ng/mL (8-252); Globulin 3.4 g/dL (2.2-4.2); Glucose 81 mg/dL (74-106); High Density Lipoprotein 43 mg/dL; Iron 92 ug/dL (50-170); Magnesium 2.1 mg/dL (1.6-2.6); Potassium 3.8 mmol/L (3.5-5.1); Protein, Total 6.9 g/dL (6.4-8.2); Sodium Level 139 mmol/L (136-145); Triglycerides 153 mg/dL; Very Low Density Lipoprotein 31 mg/dL (5-40)
[2018-10-08 09:58] LABS: Vitamin B1, Thiamine 124.2 nmol/L (66.5-200.0); Zinc, Plasma or Serum 74 ug/dL (56-134)
== END ==
PROVIDERS: Family Provider Family Medicine; PCP Family Medicine; Referring Provider Registered Nurse Nephrology; Visit Provider Registered Nurse Nephrology
DX: K21.9 Gastro-esophageal reflux disease without esophagitis (principal); K90.9 Intestinal malabsorption, unspecified; E61.9 Deficiency of nutrient element, unspecified; G47.33 Obstructive sleep apnea (adult) (pediatric); E66.01 Morbid (severe) obesity due to excess calories; Z68.41 Body mass index [BMI] 40.0-44.9, adult
CPT/HCPCS: 36415; 80053; 80061; 82306; 82607; 82728; 82746; 83540; 83735; 84425; 84630; 85027

== ENCOUNTER → 2019-03-18 09:44 | Outpatient (CLI) | payer MEDICARE, MEDICAID, SELFPAY ==
--- NOTE | 2019-03-18 09:46 | RAD_ITS ---
PROCEDURE: Fluoroscopic guided Hip Injection DATE: March 18, 2019. INDICATION: Female, 68 years old. Chronic left hip pain. PHYSICIAN: Miguel Orr M.D. MEDICATIONS: 6 mg of betamethasone and 3 cc of 1% lidocaine. 2% Lidocaine administered subcutaneously for local anesthesia. ACCESS SITE: Left hip. NEEDLE: 22-gauge spinal needle. FLUOROSCOPY TIME (if supplied): (0:55) minutes/seconds FINDINGS: The risks, benefits, and alternatives to the procedure were explained to the patient. The specific risks of bleeding, infection, and neurovascular injury were detailed and accepted. Witnessed informed consent was obtained. A 22-gauge spinal needle was positioned under radiographic fluoroscopic localization. Approximately 2 cc of aspirated 300 instilled for localization purposes. Medication was then injected. The patient tolerated the procedure well without any immediate complications. RAD/Inj/Asp Sunday Jt Should/Hip/Knee IMPRESSION: 1. Successful fluoroscopic guided hip injection. Electronically Signed: Miguel Orr, at 11:05 EST , Service support ,
== END ==
PROVIDERS: Family Provider Family Medicine; PCP Family Medicine; Referring Provider Specialist; Visit Provider Specialist
DX: M16.12 Unilateral primary osteoarthritis, left hip (principal)
CPT/HCPCS: 20610; 77002; Q9967; J0702

== ENCOUNTER → 2019-03-25 14:05 | Outpatient (CLI) | payer MEDICARE, SELFPAY ==
[2019-03-25 16:24] LABS: Anion Gap 5 (5-15); BUN 17 mg/dL (7-18); BUN/Creat Ratio 21.4 RATIO (10-20); Calcium,Total 8.6 mg/dL (8.5-10.1); Chloride 111 mmol/L (98-107); EST Glomerular Filtration Rate 76 mL/min (>60); Est Glom Filt Rate - Afr Amer 92 mL/min (>60); Glucose 86 mg/dL (74-106); Potassium 3.7 mmol/L (3.5-5.1); Sodium Level 144 mmol/L (136-145)
== END ==
PROVIDERS: Family Provider Family Medicine; PCP Family Medicine; Referring Provider Family Medicine; Visit Provider Family Medicine
DX: F41.9 Anxiety disorder, unspecified (principal)
CPT/HCPCS: 36415; 80048

== ENCOUNTER → 2019-04-18 10:00 | Outpatient (CLI) | payer MEDICARE, SELFPAY ==
[2019-04-18 11:07] LABS: Hematocrit 42.1 % (37-47); Hemoglobin 13.5 g/dL (12.0-15.0); Mean Corp Hgb Conc 32.1 g/dL (32-36); Mean Corpuscular Hgb 31.7 pg (27.0-32.0); Mean Corpuscular Volume 98.8 fL (81-99); Mean Platelet Vol. 9.7 fl (6.2-12.0); Platelet Count 224 K/mm3 (150-450); RBC Distribution Width CV 14.1 % (11.6-14.6); RBC Distribution Width SD 51.3 fl (35.1-43.9); Red Blood Count 4.26 M/mm3 (4.2-5.4); White Blood Count 4.6 K/mm3 (4.4-11.0)
[2019-04-18 11:52] LABS: Vitamin B12 875 pg/mL (211-911); Vitamin D,25 Hydroxy 38.3 ng/mL (29.95-100.01)
[2019-04-18 12:26] LABS: ALB/GLOB Ratio 1.1 RATIO (0.9-2.4); AST(SGOT) 23 U/L (15-37); Alanine Aminotransfer ALT/SGPT 27 U/L (13-56); Albumin, Serum 3.7 g/dL (3.2-5.0); Alkaline Phosphatase 99 U/L (45-117); Anion Gap 3 (5-15); BUN 14 mg/dL (7-18); BUN/Creat Ratio 20.6 RATIO (10-20); Chloride 107 mmol/L (98-107); Cholesterol 180 mg/dL (200); Creatinine, Serum 0.68 mg/dL (0.55-1.02); EST Glomerular Filtration Rate 92 mL/min (>60); Est Glom Filt Rate - Afr Amer 111 mL/min (>60); Ferritin 82 ng/mL (8-252); Globulin 3.4 g/dL (2.2-4.2); Glucose 65 mg/dL (74-106); High Density Lipoprotein 53 mg/dL; Iron 86 ug/dL (50-170); Magnesium 2.1 mg/dL (1.6-2.6); Potassium 3.7 mmol/L (3.5-5.1); Protein, Total 7.1 g/dL (6.4-8.2); Sodium Level 142 mmol/L (136-145); Triglycerides 133 mg/dL; Very Low Density Lipoprotein 27 mg/dL (5-40)
[2019-04-22 03:06] LABS: Vitamin B1, Thiamine 153.1 nmol/L (66.5-200.0)
[2019-04-22 09:38] LABS: Zinc, Plasma or Serum 77 ug/dL (56-134)
== END ==
PROVIDERS: Family Provider Family Medicine; PCP Family Medicine; Referring Provider Surgery; Visit Provider Surgery
DX: K90.9 Intestinal malabsorption, unspecified (principal); G47.33 Obstructive sleep apnea (adult) (pediatric); E66.01 Morbid (severe) obesity due to excess calories; R53.83 Other fatigue; E61.9 Deficiency of nutrient element, unspecified; E55.9 Vitamin D deficiency, unspecified; R73.03 Prediabetes
CPT/HCPCS: 36415; 80053; 80061; 82306; 82607; 82728; 82746; 83540; 83735; 84425; 84630; 85027

== ENCOUNTER → 2019-10-02 15:17 | Outpatient (CLI) | payer MEDICARE, MEDICAID, SELFPAY ==
[2019-10-02 16:20] LABS: Hematocrit 42.1 % (37-47); Hemoglobin 13.5 g/dL (12.0-15.0); Mean Corp Hgb Conc 32.1 g/dL (32-36); Mean Corpuscular Hgb 31.7 pg (27.0-32.0); Mean Corpuscular Volume 98.8 fL (81-99); Mean Platelet Vol. 10.1 fl (6.2-12.0); Platelet Count 234 K/mm3 (150-450); RBC Distribution Width CV 13.2 % (11.6-14.6); Red Blood Count 4.26 M/mm3 (4.2-5.4); White Blood Count 4.9 K/mm3 (4.4-11.0)
[2019-10-02 16:35] LABS: Vitamin B12 650 pg/mL (211-911); Vitamin D,25 Hydroxy 32.2 ng/mL
[2019-10-02 16:58] LABS: ALB/GLOB Ratio 1.1 RATIO (0.9-2.4); AST(SGOT) 23 U/L (15-37); Alanine Aminotransfer ALT/SGPT 28 U/L (13-56); Albumin, Serum 3.6 g/dL (3.2-5.0); Alkaline Phosphatase 91 U/L (45-117); Anion Gap 7 (5-15); BUN 20 mg/dL (7-18); BUN/Creat Ratio 26.1 RATIO (10-20); Calcium,Total 8.7 mg/dL (8.5-10.1); Chloride 106 mmol/L (98-107); Cholesterol 172 mg/dL (200); Creatinine, Serum 0.76 mg/dL (0.55-1.02); EST Glomerular Filtration Rate 80 mL/min (>60); Est Glom Filt Rate - Afr Amer 97 mL/min (>60); Ferritin 75 ng/mL (8-252); Globulin 3.4 g/dL (2.2-4.2); Glucose 72 mg/dL (74-106); High Density Lipoprotein 46 mg/dL; Iron 70 ug/dL (50-170); Potassium 3.9 mmol/L (3.5-5.1); Sodium Level 141 mmol/L (136-145); Triglycerides 200 mg/dL; Very Low Density Lipoprotein 40 mg/dL (5-40)
[2019-10-06 20:07] LABS: Vitamin B1, Thiamine 124.1 nmol/L (66.5-200.0)
[2019-10-07 01:53] LABS: Zinc, Plasma or Serum 66 ug/dL (56-134)
== END ==
PROVIDERS: PCP Family Medicine; Referring Provider Registered Nurse Nephrology; Visit Provider Registered Nurse Nephrology
DX: K90.9 Intestinal malabsorption, unspecified (principal); E61.9 Deficiency of nutrient element, unspecified; K21.9 Gastro-esophageal reflux disease without esophagitis; E66.01 Morbid (severe) obesity due to excess calories
CPT/HCPCS: 36415; 80053; 80061; 82306; 82607; 82728; 82746; 83540; 83735; 84425; 84630; 85027

== ENCOUNTER 2019-11-12 10:00 | Outpatient (RCR) | payer MEDICARE, MEDICAID, SELFPAY ==
--- NOTE | 2020-02-10 14:40 | HP.PTDCSUM ---
It has been my pleasure to treat NATALIO ADAIR referred by CLAUDIA Sears, with the diagnosis of for a total of 2 visit(s). Discharge Date: Please see the following information for a summary of their discharge status. Subjective: This morning my pain was like a 6/10. But once I started moving I didn't have any pain. Objective/Function: Pt arrived early, having already turned in pool paperwork. Reviewed pool orientation and education on the principles of AT and pool rules for safety (having already been to AT previously at this facility). Reviewed education on good positioning against viscosity and buoyancy of water as needed for good posture and body mechanics for ADLs - given as HEP with written descriptions. Reviewed education on use of emergency pull cord accessibility at edge of pool. Pt was educated on hydrostatic pressure and jet massage for improved circulation and blood flow. Upon questioning, denies problems with new HEP strength tasks. Reports unsteadiness and uneasiness d/t slight fear of water requiring blue float discs as AD for ambulation. Demo'ing weakness through glutes and abdominals with reports of previous hernia repair surgeries. Demo'ing excessive LB ext with commands to straighten up. Discussed replacing this command with cues for abdominal and glute bracing, for improved motor control. Improved return with less c/o's LBP with this. Plan: F/u with postural corrections. Add UE core and DLP/VH tasks next. If there are questions or concerns regarding this patient's physical therapy, please feel free to call me at [phone]. Thank you for the referral of this patient. Sincerely, ESTEFANÍA De LeónT
== END 2019-11-12 19:00 | disposition home or self-care (01) ==
LOC: PT 10:00
PROVIDERS: PCP Family Medicine; Referring Provider Nurse Practitioner Family; Visit Provider Nurse Practitioner Family
DX: M47.27 Other spondylosis with radiculopathy, lumbosacral region (principal); M51.17 Intervertebral disc disorders with radiculopathy, lumbosacral region; M46.96 Unspecified inflammatory spondylopathy, lumbar region
CPT/HCPCS: 97110; 97113; 97161

== ENCOUNTER → 2020-01-06 08:58 | Outpatient (CLI) | payer MEDICARE, MEDICAID, SELFPAY ==
[2020-01-06 09:28] LABS: Hematocrit 43.6 % (37-47); Hemoglobin 14.2 g/dL (12.0-15.0); Mean Corp Hgb Conc 32.6 g/dL (32-36); Mean Corpuscular Hgb 32.9 pg (27.0-32.0); Mean Corpuscular Volume 100.9 fL (81-99); Mean Platelet Vol. 9.9 fl (6.2-12.0); Platelet Count 209 K/mm3 (150-450); RBC Distribution Width CV 13.3 % (11.6-14.6); RBC Distribution Width SD 49.1 fl (35.1-43.9); Red Blood Count 4.32 M/mm3 (4.2-5.4); White Blood Count 5.9 K/mm3 (4.4-11.0)
[2020-01-06 10:25] LABS: ALB/GLOB Ratio 1.1 RATIO (0.9-2.4); AST(SGOT) 18 U/L (15-37); Alanine Aminotransfer ALT/SGPT 27 U/L (13-56); Albumin, Serum 3.7 g/dL (3.2-5.0); Alkaline Phosphatase 93 U/L (45-117); Anion Gap 5 (5-15); BUN 22 mg/dL (7-18); BUN/Creat Ratio 29.3 RATIO (10-20); Calcium,Total 8.7 mg/dL (8.5-10.1); Chloride 106 mmol/L (98-107); Cholesterol 163 mg/dL (200); Creatinine, Serum 0.75 mg/dL (0.55-1.02); EST Glomerular Filtration Rate 82 mL/min (>60); Est Glom Filt Rate - Afr Amer 99 mL/min (>60); Ferritin 86 ng/mL (8-252); Globulin 3.3 g/dL (2.2-4.2); Glucose 79 mg/dL (74-106); High Density Lipoprotein 57 mg/dL; Iron 116 ug/dL (50-170); Magnesium 2.3 mg/dL (1.6-2.6); Potassium 4.3 mmol/L (3.5-5.1); Sodium Level 140 mmol/L (136-145); Triglycerides 92 mg/dL; Very Low Density Lipoprotein 18 mg/dL (5-40)
[2020-01-06 11:45] LABS: Vitamin B12 > 2000 pg/mL (211-911); Vitamin D,25 Hydroxy 40.9 ng/mL
[2020-01-12 03:06] LABS: Vitamin B1, Thiamine 138.1 nmol/L (66.5-200.0)
[2020-01-12 13:12] LABS: Zinc, Plasma or Serum 66 ug/dL (56-134)
== END ==
PROVIDERS: PCP Family Medicine; Referring Provider Registered Nurse Nephrology; Visit Provider Registered Nurse Nephrology
DX: E55.9 Vitamin D deficiency, unspecified (principal); K90.9 Intestinal malabsorption, unspecified; E61.9 Deficiency of nutrient element, unspecified; K21.9 Gastro-esophageal reflux disease without esophagitis; E66.01 Morbid (severe) obesity due to excess calories
CPT/HCPCS: 36415; 80053; 80061; 82306; 82607; 82728; 82746; 83540; 83735; 84425; 84630; 85027

== ENCOUNTER → 2020-11-09 07:05 | Outpatient (CLI) | payer MEDICARE, MEDICAID, SELFPAY ==
--- NOTE | 2020-11-09 07:13 | MRI_ITS ---
STUDY: MRI LUMBAR SPINE WITHOUT CONTRAST REASON FOR EXAM: Female, 70 years old. ARTHROPATHY, DDD, RADICULOPATHY, SPONDYLOSIS TECHNIQUE: Standardized fat and water weighted pulse sequences were obtained in the sagittal and axial planes. COMPARISON: MRI lumbar spine without contrast 03/26/2018. FINDINGS: T11-T12: (Sagittal only). Normal endplates. Normal disc height. Small posterior bulging disc. Normal central canal and bilateral intervertebral neural foramina. T12-L1: (Sagittal only). Minimal MODIC type II degenerative vertebral marrow fatty changes underneath the anterior aspect of vertebral endplates. Normal disc height. No ventral extradural defect. Normal central canal and bilateral intervertebral neural foramina. Normal lumbar lordosis. There is no substantial scoliosis. Normal conus medullaris that terminates at the T12-L1 disc level. L1-2: Normal endplates. Normal disc height, hydration and morphology. Normal bilateral facet joints. Normal central canal and bilateral lateral recesses. Normal bilateral intervertebral neural foramina. Round L2 benign focal fatty infiltration from red marrow to yellow marrow. L2-3: Normal endplates. Normal disc height, hydration and morphology. Normal bilateral facet joints. Normal central canal and bilateral lateral recesses. Normal bilateral intervertebral neural foramina. L3-4: Normal endplates. Normal disc height, hydration and morphology. Normal central canal and bilateral lateral recesses. Mild asymmetric degenerative facet arthropathy. Normal bilateral intervertebral foramina. L4-5: Normal endplates. Normal disc height. Mild degenerative anterolisthesis of L4 on L5. Normal central canal and bilateral lateral recesses. Moderately pronounced bilateral degenerative facet hypertrophy. Normal bilateral intervertebral neural foramina. L5-S1: Normal endplates. Normal disc height, hydration and morphology. Normal central canal surrounded by epidural lipomatosis. Normal bilateral lateral recesses. Moderate bilateral degenerative facet arthropathy and bilateral intervertebral neural foramina. Normal visualized sacral ala. Normal visualized paraspinous soft tissue structures. MRI/Spine Lumbar (Routine) IMPRESSION: 1. No MRI evidence of lumbar extruded disc fragment, spinal stenosis or nerve root displacement. 2. Moderately pronounced bilateral L4-L5 degenerative facet arthropathy with mild degenerative anterolisthesis of L4 on L5. 3. Moderate bilateral L5-S1 degenerative facet arthropathy. 4. Mild asymmetric L3-L4 degenerative facet arthropathy. 5. No significant interval change when compared to 03/26/2018. Electronically Signed: Randy Schneider MD at 12:35 EDT , Service support ,
== END ==
PROVIDERS: PCP Family Medicine; Referring Provider Nurse Practitioner Family; Visit Provider Nurse Practitioner Family
DX: M46.96 Unspecified inflammatory spondylopathy, lumbar region (principal); M51.37 Other intervertebral disc degeneration, lumbosacral region; M54.17 Radiculopathy, lumbosacral region; M47.817 Spondylosis without myelopathy or radiculopathy, lumbosacral region
CPT/HCPCS: 72148

== ENCOUNTER → 2021-02-11 11:01 | Outpatient (CLI) | payer MEDICARE, MEDICAID, SELFPAY ==
[2021-02-11 12:36] LABS: Absolute Lymphocyte Count 1.61 X10^3/uL (0.83-4.51); Absolute Neutrophil Count 2.5 X10^3/uL (2.0-7.7); Basophil# 0.02 X10^3/uL; Basophil% 0.4 % (0-1); Eosinophil# 0.11 X10^3/uL; Eosinophils% 2.4 % (0-5); Hematocrit 41.8 % (37-47); Hemoglobin 13.1 g/dL (12.0-15.0); Lymphocyte # 1.61 X10^3/ul (0.83-4.51); Lymphocyte % 34.8 % (19-41); Mean Corp Hgb Conc 31.3 g/dL (32-36); Mean Corpuscular Hgb 31.1 pg (27.0-32.0); Mean Corpuscular Volume 99.3 fL (81-99); Mean Platelet Vol. 10.3 fl (6.2-12.0); Monocyte# 0.42 X10^3/uL; Monocyte% 9.1 % (0-10); NRBC Flagged by Analyzer 0 % (0-5); Neutrophil # 2.45 X10^3/uL (2.7-7.7); Neutrophil % 52.9 % (47-70); Platelet Count 246 K/mm3 (150-450); RBC Distribution Width CV 13.6 % (11.6-14.6); RBC Distribution Width SD 49.3 fl (35.1-43.9); Red Blood Count 4.21 M/mm3 (4.2-5.4); White Blood Count 4.6 K/mm3 (4.4-11.0)
[2021-02-11 12:53] LABS: Anion Gap 7 (5-15); BUN 8 mg/dL (7-18); BUN/Creat Ratio 11.5 RATIO (10-20); Chloride 106 mmol/L (98-107); Creatinine, Serum 0.69 mg/dL (0.55-1.02); EST Glomerular Filtration Rate 89 mL/min (>60); Est Glom Filt Rate - Afr Amer 108 mL/min (>60); Glucose 91 mg/dL (74-106); Potassium 3.9 mmol/L (3.5-5.1); Sodium Level 141 mmol/L (136-145)
== END ==
PROVIDERS: PCP Family Medicine; Referring Provider Family Medicine; Visit Provider Family Medicine
DX: Z01.818 Encounter for other preprocedural examination (principal)
CPT/HCPCS: 36415; 80048; 85025

== ENCOUNTER → 2021-09-10 | Outpatient (CLI) | payer MEDICARE, MEDICAID, SELFPAY ==
[2021-09-10 10:35] LABS: Vitamin D,25 Hydroxy 36.3 ng/mL
[2021-09-10 10:57] LABS: Anion Gap 3 (5-15); BUN 11 mg/dL (7-18); Calcium,Total 8.7 mg/dL (8.5-10.1); Chloride 107 mmol/L (98-107); Cholesterol 177 mg/dL (200); Creatinine, Serum 0.73 mg/dL (0.55-1.02); EST Glomerular Filtration Rate 84 mL/min (>60); Est Glom Filt Rate - Afr Amer 101 mL/min (>60); Glucose 95 mg/dL (74-106); High Density Lipoprotein 51 mg/dL; Potassium 4.2 mmol/L (3.5-5.1); Sodium Level 139 mmol/L (136-145); Triglycerides 120 mg/dL; Very Low Density Lipoprotein 24 mg/dL (5-40)
== END | disposition home or self-care (01) ==
LOC: MFPLAB 09:01
PROVIDERS: PCP Family Medicine; Referring Provider Family Medicine; Visit Provider Family Medicine
DX: Z00.00 Encounter for general adult medical examination without abnormal findings (principal); N28.89 Other specified disorders of kidney and ureter
CPT/HCPCS: 36415; 80048; 80061; 82306

== ENCOUNTER → 2021-09-16 | Outpatient (CLI) | payer MEDICARE, MEDICAID, SELFPAY ==
--- NOTE | 2021-09-16 13:19 | BI_ITS ---
MAMMOGRAPHY - BILATERAL SCREENING REASON FOR EXAM: Female, 71 years old. Routine annual screening examination. PERTINENT HISTORY: Sister with breast cancer. TECHNIQUE: Digital bilateral breast rand (3D mammographic acquisition) in the CC and MLO projections. 2-D mediolateral oblique (MLO) and craniocaudad (CC) views of both breasts were obtained. CAD: Full Field Digital Mammography with Computer Added Detection was performed. COMPARISON: Comparison is made with prior study 04/17/2015 and 03/10/2014. FINDINGS: Breast Composition: There are scattered areas of fibroglandular density. There are no dominant masses or suspicious calcifications. Stable small benign-appearing bilateral axillary lymph nodes. No other significant abnormalities are identified. There has been no significant change since the prior study. BI/SCRN MAMM (CAD)W/RAND BILAT IMPRESSION: Stable bilateral screening mammogram. Yearly follow-up mammogram recommended. (A) ASSESSMENT CATEGORY: BIRADS Category 2: Benign. A letter regarding these results will be sent to the patient by the facility within 30 days. Approximately 10% of breast cancers are not detected by mammography. A normal mammogram should not delay biopsy of a clinically suspicious abnormality. [id number] Electronically Signed: Miguel Orr MD at 15:02 EDT ,
--- NOTE | 2021-09-16 13:30 | BD_ITS ---
STUDY: DUAL ENERGY X-RAY ABSORPTIOMETRY / DXA REASON FOR EXAM: Female, 71 years old. Z780. The patient is postmenopausal. TECHNIQUE: Bone Mineral Density (BMD) measurements of lumbar spine and bilateral hips were obtained. COMPARISON: None. FINDINGS: Lumbar Spine (L1-L4): g/cm2 (0.939) / T-score (-0.9) / Z-score (1.2) Findings are suggestive of normal bone density with a low fracture risk. Left Femur Total: g/cm2 (0.906) / T-score (-0.3) / Z-score (1.2) Left Femoral Neck: g/cm2 (0.695) / T-score (-1.4) / Z-score (0.4) Right Femur Total: g/cm2 (0.968) / T-score (0.2) / Z-score (1.7) Right Femoral Neck: g/cm2 (0.737) / T-score (-1.0) / Z-score (0.8) BD/Dexa Bone Density Study IMPRESSION: The patient is considered osteopenic as outlined below according to World Emre Organization (WHO) criteria with a low fracture risk. Reference Information: The T-score is the number of standard deviations above or below the standard which is normal for young adults at their peak bone mineral density. The World Health Organization (WHO) interprets the T-scores as follows: Above -1 Normal bone density Between -1 and -2.5 Osteopenia Equal to / or below -2.5 Osteoporosis As a practical clinical guideline, osteopenia may be graded as follows: Mild -1 through -1.5 Moderate -1.6 through -2.0 Severe -2.1 through -2.4 The Z-score is the number of standard deviations above or below age-matched controls. A Z-score of less than -1.5 would be considered abnormal. References: 1. NIH Osteoporosis and Related Bone Diseases www osteo.org 2. International Society for Clinical Densitometry www iscd.org 3. National Osteoporosis Foundation www nof.org Electronically Signed: Miguel Orr MD at 13:10 EDT ,
== END | disposition home or self-care (01) ==
PROVIDERS: PCP Family Medicine; Visit Provider Family Medicine
DX: Z13.820 Encounter for screening for osteoporosis (principal); Z78.0 Asymptomatic menopausal state; Z12.31 Encounter for screening mammogram for malignant neoplasm of breast; Z80.3 Family history of malignant neoplasm of breast
CPT/HCPCS: 77063; 77067; 77080

== ENCOUNTER → 2021-10-27 | Outpatient (CLI) | payer MEDICARE, MEDICAID, SELFPAY ==
[2021-10-27 13:31] LABS: CREATININE FINGERSTICK < 0.9 mg/dL (0.55-1.02); EGFR FINGERSTICK > 60.0000 mL/min (>60)
--- NOTE | 2021-10-27 13:32 | CT_ITS ---
STUDY: CT ABDOMEN AND PELVIS WITH CONTRAST REASON FOR EXAM: Female, 71 years old. Left sided abdominal pain, hernia -- oral and iv contrast RADIATION DOSAGE (If Supplied By Facility): CTDIvol = ( 18.38 ) mGy, DLP = ( 1348.97 ) mGycm TECHNIQUE: Transaxial images were obtained from the dome of the diaphragm to the symphysis pubis with oral contrast. Oral and amp; IV Gastrografin and amp; 100mL Isovue-300 was administered. Sagittal and coronal images were reconstructed. Individualized dose optimization techniques were used for this CT. COMPARISON: None. FINDINGS: The visualized lung bases are unremarkable. Coronary artery calcification. There is decreased attenuation of the liver consistent with steatosis. Normal gallbladder and extrahepatic biliary system. Normal spleen. Normal pancreas. Normal bilateral adrenal glands. There is a 1 cm cyst in the posterior lower pole of the right kidney. Normal left kidney. There is a small hiatal hernia. There is evidence of a subtotal gastrectomy. Normal small intestine. There are scattered colonic diverticula consistent with diverticulosis. The appendix is visualized and appears normal. Normal abdominal aorta. Normal inferior vena cava. Normal retroperitoneum. Normal urinary bladder. There is absence of the uterus consistent with a prior hysterectomy. There is a small umbilical hernia containing fat. The neck of the hernia measures 3.5 cm. There are mild degenerative changes of the visualized lumbar spine. CT/Abdomen/Pelvis WITH Contrast IMPRESSION: Fatty attrition of the liver. Status post subtotal gastrectomy and small hiatal hernia. Scattered sigmoid diverticula. Umbilical hernia containing fat. The neck of the hernia measures 3.5 cm. Electronically Signed: Miguel Orr MD at 14:20 EDT ,
== END | disposition home or self-care (01) ==
LOC: CT 11:26
PROVIDERS: PCP Family Medicine; Referring Provider Surgery; Visit Provider Surgery
DX: K76.0 Fatty (change of) liver, not elsewhere classified (principal); K57.30 Diverticulosis of large intestine without perforation or abscess without bleeding; K42.9 Umbilical hernia without obstruction or gangrene; Z90.3 Acquired absence of stomach [part of]
CPT/HCPCS: 74177; Q9967

== ENCOUNTER → 2022-09-01 | Outpatient (CLI) | payer MEDICARE, MEDICAID, SELFPAY ==
--- NOTE | 2022-09-01 13:08 | RAD_ITS ---
STUDY: X-RAY CHEST REASON FOR EXAM: Female, 72 years old. Shortness of breath TECHNIQUE: PA and lateral views of the chest. COMPARISON: 05/25/2017 FINDINGS: Chronic interstitial changes in both lung sales without a superimposed acute pulmonary process, or significant interval change There is no demonstrated pleural abnormality. Normal size heart. Normal mediastinum and efrain. Normal visualized pulmonary arteries. Normal visualized aortic arch and descending thoracic aorta. There are diffuse degenerative changes of the visualized thoracic spine. Normal visualized ribs, clavicles, and shoulders. There is no demonstrated abnormality of the visualized soft tissue structures of the upper abdomen. RAD/Chest PA and Lateral IMPRESSION: Chronic interstitial changes, no superimposed acute pulmonary process Electronically Signed: Jacoby Adames MD at 8:49 EDT ,
== END | disposition home or self-care (01) ==
LOC: MTRAD 13:07
PROVIDERS: PCP Family Medicine; Referring Provider Internal Medicine Pulmonary Disease; Visit Provider Internal Medicine Pulmonary Disease
DX: R06.02 Shortness of breath (principal)
CPT/HCPCS: 71046

== ENCOUNTER → 2023-03-22 | Outpatient (CLI) | payer MEDICARE, MEDICAID, SELFPAY ==
[2023-03-22 18:13] LABS: Vitamin B12 986 pg/mL (211-911)
[2023-03-22 18:28] LABS: Anion Gap 6 (5-15); BUN 21 mg/dL (7-18); BUN/Creat Ratio 26.9 RATIO (10-20); Chloride 106 mmol/L (98-107); Cholesterol 149 mg/dL (200); Creatinine, Serum 0.78 mg/dL (0.55-1.02); EST Glomerular Filtration Rate 77 mL/min (>60); Est Glom Filt Rate - Afr Amer 93 mL/min (>60); Glucose 84 mg/dL (74-106); High Density Lipoprotein 46 mg/dL; Potassium 3.8 mmol/L (3.5-5.1); Sodium Level 139 mmol/L (136-145); Triglycerides 109 mg/dL; Very Low Density Lipoprotein 22 mg/dL (5-40)
== END | disposition home or self-care (01) ==
LOC: MFPLAB 16:14
PROVIDERS: PCP Family Medicine; Visit Provider Family Medicine
DX: E53.8 Deficiency of other specified B group vitamins (principal); E66.9 Obesity, unspecified
CPT/HCPCS: 36415; 80048; 80061; 82607

== ENCOUNTER 2023-11-03 18:15 | Emergency (ER) | payer MEDICARE, MEDICAID, SELFPAY ==
[2023-11-03 18:16] VITALS: BP 132/60; PULSE 68; RESP 15; TEMP 36.7; O2SAT 100; BMI 39.4
--- NOTE | 2023-11-03 19:14 | EDS_ITS ---
HPI History of Present Illness Chief Complaint: Lower Extremity Injury Narrative Narrative: 73-year-old female presenting with right posterior leg pain. She states this is a fairly chronic and intermittent problem. She has history of back pain and degenerative disc disease. She sees pain management for injections from time to time. She also gets manipulation from the chiropractor every few weeks. She states that sometime last week she was walking and twisted her leg and noticed that it was more painful since then. She has used Tylenol twice a day but states she cannot use ibuprofen because she has a history of renal disease and nephrectomy. Patient states that she does not receive anything from pain management because nothing ever works. Patient denies any direct trauma to the leg. No numbness or tingling. She does report that she had recent travel by car to [place] and noted that she had a lot of pain in the leg while she was traveling. No history of DVT/PE. [facility] Medical History Tail bone pain H/O retained foreign body fully removed Home Medications ?Medication ?Instructions ?Recorded ?Last Taken ?Type biotin 1 mg tablet 1 mg PO DAILY SUPPLEMENT 08/06/18 Unknown History cholecalciferol (vitamin D3) 25 1,000 unit PO DAILY SUPPLEMENT 08/06/18 Unknown History mcg (1,000 unit) tablet (Vitamin D3) citalopram 20 mg tablet 20 mg PO DAILY ANXIETY 08/06/18 Unknown History cyanocobalamin (vitamin B-12) 1,000 mcg QMONTH SUPPLEMENT 08/06/18 Unknown Hi story 1,000 mcg/mL injection solution pediatric multivitamin no.25-folic 300 mcg PO DAILY SUPPLEMENT 08/06/18 Unknown History acid 300 mcg chewable tablet (Children's Chewable Multivitamin) acetaminophen 500 mg tablet 1,000 mg PO Q8 pain/fever 08/25/18 Unknown History aspirin 81 mg chewable tablet 81 mg PO BIDCM blood thinner ##26 09/05/18 Unknown Rx famotidine 20 mg tablet 20 mg PO DAILY reflux #30 tabs 09/05/18 Unknown Rx polyethylene glycol 3350 17 gram 17 g PO DAILY #30 packets 09/05/18 Unknown Rx oral powder packet sennosides 8.6 mg-docusate sodium 2 tab PO BID STOOL SOFTENER #120 09/05/18 Unknown Rx 50 mg tablet (Stool tabs Softener-Stimulant Laxative) Allergy/AdvReac Type Severity Reaction Status Date / Time adhesive tape Allergy Rash Verified 11/03/23 18:19 codeine Allergy Shortness Verified 11/03/23 18:19 of breath Penicillins (PCN) Allergy Shortness Verified 11/03/23 18:19 of breath Sulfa (Sulfonamide Allergy Swelling Verified 11/03/23 18:19 Antibiotics) Family History Father Asthma Mother Arthritis Hypertension Sister Breast cancer Surgical History History of gastric bypass History of partial nephrectomy History of cataract surgery History of carpal tunnel surgery History of knee replacement H/O: hysterectomy History of arthroscopy of both knees History of hernia repair S/P tendon repair Social History Smoking Status: Never smoker alcohol intake: never substance use type: does not use ROS ROS ED Constitutional Constitutional ED: Denies chills, fever(s) or sweats Eyes Eyes: Denies blurry vision or change in vision ENT ENT ED: Denies ear pain or sore throat Cardiovascular Cardiovascular: Denies chest pain, palpitations or racing heartbeat Respiratory/Chest Respiratory/Chest: Denies cough, dyspnea or sputum Gastrointestinal Gastrointestinal: Denies abdominal pain, constipation, diarrhea, nausea or vomiting Genitourinary Genitourinary ED: Denies dysuria, hematuria or urinary frequency Musculoskeletal Musculoskeletal: Reports other Details: Left leg ; Denies arthralgias, myalgias or neck pain Integumentary Denies abscess, Abrasions or rash Neurologic Neurologic: Denies headache(s), paresthesias or weakness Psychiatric Psychiatric: Denies anxiety, depression, suicidal ideation or suicidal thoughts Endocrine Endocrinology: Denies polydipsia or polyuria EXAM Physical Exam Const Vital Signs: 11/03/23 18:16 Temperature 98.1 F Temperature Source Temporal Pulse Rate 68 Respiratory Rate 15 Blood Pressure 132/60 H Blood Pressure Mean 84 Pulse Ox 100 Oxygen Delivery Method Room Air Positive well nourished HEENT Reports moist mucous membranes normocephalic Chest Wall inspection of chest normal Resp normal respiratory effort Cardio regular rate and regular rhythm Back/Spine Back/Spine Narrative: Nose midline spinal tenderness, deformity, step-off of the lumbar spine. No paraspinal muscular tenderness. No pain in the right gluteal region. Extremity Extremity Narrative: There is focal tenderness over the midline of the right hamstring. Unable to flex the leg up over 90 degrees with her knee straight and her foot dorsiflexed. This does not elicit pain. No bony tenderness. Neurovascular intact Neuro oriented x3 Sensorium / Orientation: alert Motor Exam: strength 5/5 throughout Psych mental status grossly normal Skin no wounds MDM MDM MDM Narrative Medical decision making narrative: Patient presenting with pain in the posterior thigh. She states she thinks she might of twisted something in the last week or so. She also had recent travel to [place] by car. Differential includes muscle strain, DVT. Patient has some tenderness to palpation on exam over this is not worsened by flexion of the hip with the knee extended. I can flex the hip over 90 degrees. No bony tenderness. Counseled patient that I would give her a [place] here in the ER and I will obtain a DVT study of the right leg. She was amenable to this. I do not believe she needs x-rays. Patient's duplex was negative. Counseled her on al ternating ice, heat rest, elevation, and adding compression. Patient is going to follow-up with primary care this week on and pain management later. I do not believe she needs narcotic pain medication at home. Patient agreement. Discharged stable condition. Impression: 1. Hamstring strain Discharge Plan Triage Chief Complaint: Lower Extremity Injury ED Provider: Wang Wharton Dx/Rx/DC Orders Instructions: ED Muscle Strain, Extremity Prescriptions: No Action citalopram 20 MG tablet 20 mg PO DAILY cyanocobalamin (vitamin B-12) 1,000 MCG/ML solution 1,000 mcg IJ QMONTH biotin 1 MG tablet 1 mg PO DAILY cholecalciferol (vitamin D3) [Vitamin D3] 1,000 UNIT tablet 1,000 unit PO DAILY pedi multivit no.25-folic acid [Children's Chewable Multivitmn] 300 MCG tablet,chewable 300 mcg PO DAILY acetaminophen 500 MG tablet 1,000 mg PO Q8 polyethylene glycol 3350 17 GM packet 17 g PO DAILY Qty: 30 0RF sennosides-docusate sodium [Stool Softener-Stimulant Laxat] 1 TABLET tablet 2 tab PO BID Qty: 120 0RF Rx Instructions: CONTINUE UNTIL FIRST BOWEL MOVEMENT famotidine 20 MG tablet 20 mg PO DAILY Qty: 30 0RF aspirin 81 MG tablet,chewable 81 mg PO BIDCM Qty: 26 0RF Primary Care Provider: Gregory Foss Referrals: Gregory Foss MD [Primary Care Provider] - Print Language: Belarusian Disposition Disposition: Home, Self Care
[2023-11-03] MEDS: HYDROcodone Bitartrate/Apap 5/325 Tablet PO (19:28)
--- NOTE | 2023-11-03 19:31 | US_ITS ---
EXAM: US DUPLEX RIGHT LOWER EXTREMITY VEINS CLINICAL INDICATION: RT POST LEG PAIN TECHNIQUE: Real-time duplex ultrasound scan of the right lower extremity veins integrating B-mode two-dimensional vascular structure, Doppler spectral analysis, color flow Doppler imaging and compression. COMPARISON: No relevant prior studies available. FINDINGS: DEEP VEINS: Unremarkable. No DVT in the visualized common femoral, femoral, proximal deep femoral or popliteal veins. The veins demonstrate normal color flow, are normally compressible, with normal phasic flow and/or augmentation response. SUPERFICIAL VEINS: Unremarkable. No thrombus in the visualized great saphenous vein. SOFT TISSUES: No acute findings. No popliteal cyst. US/Venous Duplex Imag/Limited/Uni IMPRESSION: Normal right lower extremity duplex venous ultrasound. Electronically Signed: William Fulton MD at 20:36 EDT ,
[2023-11-03 20:39] VITALS: BP 116/72; PULSE 70; RESP 16; TEMP 36.7; O2SAT 100
== END 2023-11-03 20:42 | disposition home or self-care (01) ==
PROVIDERS: Emergency Provider Student in an Organized Health Care Education/Training Program; PCP Family Medicine; Visit Provider Student in an Organized Health Care Education/Training Program
DX: M79.651 Pain in right thigh (principal); S76.811A Strain of other specified muscles, fascia and tendons at thigh level, right thigh, initial encounter; X58.XXXA Exposure to other specified factors, initial encounter; Y93.01 Activity, walking, marching and hiking; Z90.5 Acquired absence of kidney; Z96.659 Presence of unspecified artificial knee joint; Z90.710 Acquired absence of both cervix and uterus
CPT/HCPCS: 93971; 99282

== ENCOUNTER 2024-01-29 08:16 | Day surgery (SDC) | payer MEDICARE, MEDICAID, SELFPAY ==
--- NOTE | 2024-01-29 | COLBX_PTH ---
PATIENT: NATALIO ADAIR LOC: EN U#:[id number] AGE/SX: 73/F ROOM: RE01/29/[address]: Dr. Juana Garland MD : 1950 BED: DIS: 01/29/2024 SPEC #: [id number] RECD: 01/29/24 13:29 STATUS: KATERYNA BRYANT #: [id number] CHLOE: 01/29/24 00:[address]: Juana Garland DEPT: SURGICAL PATHOLOGY RECD BY: Jadon Christianson ENTERED: 01/30/24 09:42 SP TYPE: COLON BX OTHR DR: Dr. Gregory Foss MD Tissues: COLON BIOPSY Procedures: Surgery Specimen Level IV HEADER OPERATION: Colonoscopy, polypectomy PRE-OP DIAGNOSIS: History of colonic polyps, hemorrhoids TISSUE SUBMITTED: Adjacent to appendiceal orifice polyp MICROSCOPIC DIAGNOSIS Polyp adjacent to appendiceal orifice, biopsy: Fragments of tubular adenoma. AM.mr 01/31/2024 MICROSCOPIC DESCRIPTION Slides are reviewed. GROSS DESCRIPTION Received in fixative is one container labeled with the patient's name and designated Adjacent to appendiceal orifice polyp. The specimen consists of multiple irregular fragments of light arauz soft tissue that in aggregate measure 2.5 x 1.0 x 0.2 cm. The specimen is totally submitted in one cassette. 01/30/2024 TC:5 CPT:85287
--- NOTE | 2024-01-29 08:28 | PRE.ANES_ITS ---
ASA Classification* ASA Classification ASA Classification: 2 Assessment & Plan Anesthesia* Anesthesia Assessment Anesthesia Assessment: Discussed sedation and/or anesthesia options, risks, benefits, and alternatives with patient/parents/legal guardian/POA. Questions invited. The patient/parents/legal guardian/POA seems to understand and agrees to proceed with anesthesia plan. Reviewed the physical assessment, medical history, allergy history and patient home medications list prior to surgery/procedure/anesthetic and documented any changes. Performed airway and anesthesia risk assessments. Anesthesia Type Anesthesia Type: MAC Anesthesia Focused Assessment* Airway Assessment Mouth opens: >3 cm Mallampati Score: II Focused Labs Anesthesia Preop lab: CBC WBC 4.6 K/mm3 (4.4-11.0) 02/11/21 11:03 RBC 4.21 M/mm3 (4.2-5.4) 02/11/21 11:03 Hgb 13.1 g/dL (12.0-15.0) 02/11/21 11:03 Hct 41.8 % (37-47) 02/11/21 11:03 Plt Count 246 K/mm3 (150-450) 02/11/21 11:03 CHEMISTRY Potassium 3.8 mmol/L (3.5-5.1) 03/22/23 16:19 Sodium 139 mmol/L (136-145) 03/22/23 16:19 Magnesium 2.3 mg/dL (1.6-2.6) 01/06/20 09:10 BUN 21 mg/dL (7-18) H 03/22/23 16:19 Creatinine 0.78 mg/dL (0.55-1.02) 03/22/23 16:19 Glucose 84 mg/dL (74-106) 03/22/23 16:19 POC Glucose 136 mg/dL (70-110) H 09/06/18 15:28 TSH 2.59 uIU/mL (0.358-3.74) 07/06/17 10:10 COAG Pre-Assessment Diagnosis/Proposed Procedure Planned Operative Procedure(s): CSCOPE Anesthesia History Anesthesia History - quality assurance nurse: Anesthesia History - quality assurance nurse Hx Hospitalization No 01/26/24 11:23 Any Problems With Anesthesia Yes: PONV 01/26/24 11:23 Cholinesterase deficiency No 01/26/24 11:23 You/Your Family Experience No 01/26/24 11:23 fever (hyperthermia) with Relationship Recent Exposure to Contagious No 08/22/18 05:55 Disease Does patient have nerve No 01/26/24 11:23 stimulator Patient instructed to have device shut off --Does patient have Pacemaker or ICD? When Was Last Pacemaker Check QUESTION #4 FULL TEXT: You/Your Family Experience fever (hyperthermia) with Anesthesia Last Oral Intake Last Oral intake: Last Oral Intake NPO since Meds taken in AM with sips of water? Meds patient instructed to take am of surgery PONV PONV - quality assurance nurse: PONV - quality assurance nurse Female Yes 01/26/24 11:23 HX of Motion Sickness No 01/26/24 11:23 HX of N/V After Surgery Yes 01/26/24 11:23 Non-Smoker Yes 01/26/24 11:23 Duration of Surgery greater No 01/26/24 11:23 than 60 minutes Number of Risk Factors 3 01/26/24 11:23 PONV Score Moderate Risk 01/26/24 11:23 Height & Weight Height & Weight: Anesthesia: Height & Weight Height 5 ft 4 in 12/01/23 09:34 Respiratory Assessment Respiratory Assessment - quality assurance nurse: Respiratory Tract Infection Hx - quality assurance nurse Hx Respiratory Tract Infection No 01/26/24 11:23 STOP Sleep Apnea STOP Sleep Apnea - quality assurance nurse: STOP Sleep Apnea - quality assurance nurse Hx Hypertension No 01/26/24 11:23 Hx Sleep Apnea Yes 01/26/24 11:23 CPAP Yes 01/26/24 11:23 BIPAP No 01/26/24 11:23 Do you snore loudly (louder than talking or can be heard Do you often feel tired/ fatigued/ sleepy during daytime? Has anyone observed you stop breathing during sleep? STOP Results Positive 01/26/24 11:23 QUESTION #5 FULL TEXT : Do you snore loudly (louder than talking or can be heard through closed doors)? Tobacco Use History Tobacco Use History - quality assurance nurse: Tobacco Use History - quality assurance nurse Tobacco Use Smoking Status Never smoker 01/26/24 11:23 Hx Tobacco Use No 01/26/24 11:23 Years Smoking Packs Smoked per Day Smoking Cessation Date was within the last 15 years Hx Smoking Cessation Date Hx Smoking Cessation Counseling Hematologic Medial History Hematologic Hx - quality assurance nurse: Hematologic Medical Hx - bar back Hx of Blood Transfusion Yes 01/26/24 11:23 Hx of Transfusion in last 3 No 01/26/24 11:23 Months Date of Last Transfusion (if within last 3 months) Ever experience any problems No 01/26/24 11:23 with transfusion(s)? Specify any problems Hx of Preganancy in last 3 N/A 01/26/24 11:23 Months Nurse Filling Out Transfusion NBUCHER 01/26/24 11:23 & Questions: Date: 01/26/24 01/26/24 11:23 Time: 11:24 01/26/24 11:23 Patient unable to answer at this time (ie. confused, unrespo /Reproduction History /Reproductive History - quality assurance nurse: /Reproductive Hx- quality assurance nurse Hx Now No 01/26/24 11:23 Gestational Age (in weeks): EDC: Hx Hx Para Hx Section SAB No 01/26/24 11:23 Active Medications Active Medications: Current Medications Generic Name Dose Route Start Last Admin Trade Name Freq PRN Reason Stop Dose Admin Lactated Ringer's 1,000 mls @ 15 mls/hr 01/29/24 08:30 IV .Q48H MAHOGANY PFSH Medical History Wears hearing aid Loss of hearing Wears glasses Wears dentures Anxiety Arthritis Easy bruising PONV (postoperative nausea and vomiting) Restless legs CPAP (continuous positive airway pressure) dependence Sleep apnea Non-smoker Tail bone pain H/O retained foreign body fully removed Home Medications ?Medication ?Instructions ?Recorded ?Last Taken ?Type biotin 1 mg tablet 1 mg PO DAILY SUPPLEMENT 08/06/18 Unknown History cholecalciferol (vitamin D3) 25 1,000 unit PO DAILY SUPPLEMENT 08/06/18 Unknown History mcg (1,000 unit) tablet (Vitamin D3) citalopram 20 mg tablet 40 mg PO DAILY ANXIETY 08/06/18 Unknown History pediatric multivitamin no.25-folic 300 mcg PO DAILY SUPPLEMENT 08/06/18 Unknown History acid 300 mcg chewable tablet (Children's Chewable Multivitamin) sennosides 8.6 mg-docusate sodium 2 tab PO BID STOOL SOFTENER #120 09/05/18 Unknown Rx 50 mg tablet (Stool tabs Softener-Stimulant Laxative) Hydrocortisone 2.5%/lidocaine 5% #30 ea 12/01/23 Unknown Rx suppository (cmpd) (hydrocortisone 2.5%/lidocaine 5% suppository (compound)) tirzepatide 2.5 mg/0.5 mL 5 mg subcut WE 12/01/23 Unknown History subcutaneous pen injector acetaminophen 500 mg tablet 1,000 mg PO BID PRN pain 01/26/24 Unknown History (Acetaminophen Extra Strength) cholecalciferol (vitamin D3) 125 125 mcg PO DAILY 01/26/24 Unknown History mcg (5,000 unit) tablet (Vitamin D3) Allergy/AdvReac Type Severity Reaction Status Date / Time adhesive tape Allergy Rash Verified 01/26/24 11:17 codeine Allergy Shortness Verified 01/26/24 11:17 of breath Penicillins (PCN) Allergy Shortness Verified 01/26/24 11:17 of breath Sulfa (Sulfonamide Allergy Swelling Verified 01/26/24 11:17 Antibiotics) Family History Father Asthma Mother Arthritis Hypertension Sister Breast cancer Surgical History History of gastric bypass History of partial nephrectomy History of cataract surgery History of carpal tunnel surgery History of knee replacement H/O: hysterectomy History of arthroscopy of both knees History of hernia repair S/P tendon repair Social History Smoking Status: Never smoker alcohol intake: never substance use type: does not use Review of Systems (Anesthesia) ROS Narrative System reviewed and no additional complaints, except as documented.
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
[2024-01-29] MEDS: Lactated Ringers 1,000 ML 15 ML IV (08:41)
[2024-01-29 08:42] VITALS: BP 118/72; PULSE 68; RESP 18; TEMP 36.1; O2SAT 99; BMI 39.2
--- NOTE | 2024-01-29 11:27 | OP.CCLET_ITS ---
01/29/2024 Gregory Foss MD [address] [place] [address] Re : Colonoscopy procedure for Melanie Mast Dear Dr. Foss This procedure was performed on Monday, January 29, 2024. My impressions and recommendations are as follows: Impressions : - Diverticulosis in the sigmoid colon. - One less than 5 mm polyp at the appendiceal orifice, removed with a hot snare. Resected and retrieved. - The examination was otherwise normal on direct and retroflexion views. Recommendations : - Discharge patient to home. - Resume previous diet. - Continue present medications. - Await pathology results. - Repeat colonoscopy in 5 years for surveillance based on pathology results. My findings are described in the full procedure note, which is enclosed. If I can be of further assistance, please feel free to contact me at Doctor phone number(s): , Work: . Sincerely, MD Juana Franz MD 01/29/2024 11:26:48 AM This report has been signed electronically.
--- NOTE | 2024-01-29 11:27 | OP.COLON_ITS ---
Patient Name: Melanie Castelan Procedure Date: 01/29/2024 9:18 AM Date of : 1950 Age: 73 Procedure: Colonoscopy Indications: High risk colon cancer surveillance: Personal history of colonic polyps Providers: Juana Garland MD Medicines: Monitored Anesthesia Care Patient Profile: Last Colonoscopy: more than 10 years ago. This is a 73 year old female. Complications: No immediate complications. Procedure: Pre-Anesthesia Assessment: - Prior to the procedure, a History and Physical was performed, and patient medications and allergies were reviewed. The patient's tolerance of previous anesthesia was also reviewed. The risks and benefits of the procedure and the sedation options and risks were discussed with the patient. All questions were answered, and informed consent was obtained. Prior Anticoagulants: The patient has taken no anticoagulant or antiplatelet agents. ASA Grade Assessment: Per anesthesia. After reviewing the risks and benefits, the patient was deemed in satisfactory condition to undergo the procedure. - Prior to the procedure, a History and Physical was performed, and patient medications and allergies were reviewed. The patient's tolerance of previous anesthesia was also reviewed. The risks and benefits of the procedure and the sedation options and risks were discussed with the patient. All questions were answered, and informed consent was obtained. Prior Anticoagulants: The patient has taken no anticoagulant or antiplatelet agents. ASA Grade Assessment: Per anesthesia. After reviewing the risks and benefits, the patient was deemed in satisfactory condition to undergo the procedure. After I obtained informed consent, the scope was passed under direct vision. Throughout the procedure, the patient's blood pressure, pulse, and oxygen saturations were monitored continuously. The pediatric colonoscope was introduced through the anus and advanced to the cecum, identified by the appendiceal orifice, ileocecal valve and palpation. The colonoscopy was performed without difficulty. The patient tolerated the procedure well. The quality of the bowel preparation was good. Scope In: 10:56:12 AM Scope Withdrawal Time 0 hours 12 minutes 44 seconds Scope Out: 11:21:06 AM Total Procedure Duration Time 0 hours 24 minutes 54 seconds Findings: The perianal and digital rectal examinations were normal. Multiple small-mouthed diverticula were found in the sigmoid colon. A less than 5 mm polyp was found in the appendiceal orifice. The polyp was semi-pedunculated. The polyp was removed with a hot snare. Resection and retrieval were complete. The exam was otherwise without abnormality on direct and retroflexion views. Impression: - Diverticulosis in the sigmoid colon. - One less than 5 mm polyp at the appendiceal orifice, removed with a hot snare. Resected and retrieved. - The examination was otherwise normal on direct and retroflexion views. Recommendation: - Discharge patient to home. - Resume previous diet. - Continue present medications. - Await pathology results. - Repeat colonoscopy in 5 years for surveillance based on pathology results. Procedure Code(s): --- Professional --- 63544, PT, Colonoscopy, flexible; with removal of tumor(s), polyp(s), or other lesion(s) by snare technique Diagnosis Code(s): --- Professional --- Z86.010, Personal history of colonic polyps D12.1, Benign neoplasm of appendix K57.30, Diverticulosis of large intestine without perforation or abscess without bleeding CPT copyright 2021 [employer]. All rights reserved. The codes documented in this report are preliminary and upon soda drier feeder review may be revised to meet current compliance requirements. MD Juana Franz MD 01/29/2024 11:26:48 AM This report has been signed electronically. Number of Addenda: 0 Note Initiated On: 01/29/2024 9:18 AM
[2024-01-29 11:30] VITALS: BP 118/72; BP 90/50; PULSE 62; RESP 16; TEMP 36.6; O2SAT 100
--- NOTE | 2024-01-29 11:31 | PCM.POST.ANE ---
Anesthesia: Postop Eval I Current Vital Signs Temperature: 97.9 F Pulse Rate: 64 Blood Pressure: 90/50 Respiratory Rate: 16 Pulse Ox: 100 Oxygen Delivery Method: Room Air Assessment Airway patent: Yes Spontaneous unlabored respirations: Yes Mental status: Awake and Calm nausea: No Vomiting: No Anesthesia Complication: No Fluid Hydration Crystalloid volume administer (ml): 600 Total IV fluid infused: 600 Progress Note Anesthesia document: Postop Eval 1 completed: Yes
[2024-01-29 11:32] VITALS: BP 90/50; PULSE 64; RESP 16; TEMP 36.6; O2SAT 100
[2024-01-29 11:35] VITALS: BP 118/72; BP 96/52; PULSE 62; RESP 16; O2SAT 100
[2024-01-29 11:40] VITALS: BP 105/48; BP 118/72; PULSE 62; RESP 16; TEMP 36.8; O2SAT 100
[2024-01-29 11:49] VITALS: BP 118/72
--- NOTE | 2024-01-29 12:37 | PCM.POSTANE2 ---
Anesthesia Postop Eval I Sum Postop Eval Completion status Anesthesia document: Postop Eval 1 completed: Yes Anesthesia Postop Eval I Summary Anesthesia Postop Eval I Summary: Anesthesia Postop Eval I: Assessment Summary Airway patent Yes 01/29/24 11:32 [email or web address] Spontaneous unlabored Yes 01/29/24 11:32 [email or web address] respirations Mental status Awake,Calm 01/29/24 11:32 [email or web address] nausea No 01/29/24 11:32 [email or web address] Vomiting No 01/29/24 11:32 [email or web address] Anesthesia Postop Eval I: Fluid Summary Crystalloid volume administer 600 01/29/24 11:32 [email or web address] (ml) Colloids volume administered ( ml) Blood Product volume administered (ml) Total IV fluid infused 600 01/29/24 11:32 [email or web address] Anesthesia Postop Eval I: Summary Notes Anesthesia Complication No 01/29/24 11:32 [email or web address] Anesthesia Complication Comment: Post-operative progress note Anesthesia: Postop Eval II Evaluation Mental status: Awake and Calm Pain Level: 0 nausea: No Vomiting: No Complications Anesthesia Complication: No
== END 2024-01-29 12:14 | disposition home or self-care (01) ==
LOC: EN 08:18 → AC 08:20
PROVIDERS: PCP Family Medicine; Referring Provider Family Medicine; Visit Provider Surgery
PROC: 0DJD8ZZ Inspection of Lower Intestinal Tract, Via Natural or Artificial Opening Endoscopic (ICD-10-PCS; CPT 45378; principal; 2024-01-29 09:10)
DX: Z12.11 Encounter for screening for malignant neoplasm of colon (principal); K57.30 Diverticulosis of large intestine without perforation or abscess without bleeding; D12.0 Benign neoplasm of cecum; Z79.899 Other long term (current) drug therapy; Z86.010 Personal history of colon polyps
CPT/HCPCS: 45385; 88305; J7120; J2405

== ENCOUNTER → 2024-08-14 | Outpatient (CLI) | payer MEDICARE, MEDICAID, SELFPAY ==
[2024-08-14 16:45] LABS: Cholesterol 169 mg/dL (<=200); High Density Lipoprotein 50 mg/dL; Low Density Lipoprotein Calc. 97 mg/dL; Triglycerides 111 mg/dL; Very Low Density Lipoprotein 22 mg/dL (5-40); cholesterol:hdl ratio screen 3.37
[2024-08-14 17:57] LABS: ALB/GLOB Ratio 1.3 RATIO (0.9-2.4); AST(SGOT) 30 U/L (<=31); Alanine Aminotransfer ALT/SGPT 13 U/L (<=34); Albumin, Serum 4.1 g/dL (3.4-4.8); Alkaline Phosphatase 87 U/L (35-104); Anion Gap 11 (5-15); BUN 18 mg/dL (4-19); BUN/Creat Ratio 24.8 RATIO (10-20); Calcium,Total 9.6 mg/dL (7.6-11.0); Carbon Dioxide 24.4 mmol/L (21.0-32.0); Chloride 103 mmol/L (98-108); Creatinine, Serum 0.74 mg/dL (0.70-1.20); EST Glomerular Filtration Rate 85 (>60); Globulin 3.1 g/dL (2.2-4.2); Glucose 84 mg/dL (70-99); Potassium 4.1 mmol/L (3.3-5.1); Protein, Total 7.2 g/dL (5.9-8.4); Sodium Level 139 mmol/L (133-145); Total Bilirubin 0.29 mg/dL (0.00-1.30)
== END | disposition home or self-care (01) ==
LOC: MFPLAB 10:40
PROVIDERS: PCP Family Medicine; Referring Provider Family Medicine; Visit Provider Family Medicine
DX: Z00.00 Encounter for general adult medical examination without abnormal findings (principal)
CPT/HCPCS: 36415; 80053; 80061

== ENCOUNTER → 2024-08-28 | Outpatient (CLI) | payer MEDICARE, MEDICAID, SELFPAY ==
--- NOTE | 2024-08-28 09:56 | BI_ITS ---
EXAM: SCRN MAMM (CAD)W/RAND BILAT 08/28/2024 CLINICAL HISTORY: F, Age 74 y/o , ROUTINE SCREEN TECHNIQUE: Bilateral screening digital breast tomosynthesis with 2D and 3D images. Computer aided detection. COMPARISON: Prior exam(s) dated 09/16/2021, 03/18/2015. FINDINGS: TISSUE DENSITY: The breast tissue is composed of scattered area of fibroglandular density. Bilateral Breast Mammographic Findings: No significant masses, calcifications or other abnormalities are identified. BI/SCRN MAMM (CAD)W/RAND BILAT IMPRESSION: Right Breast: BIRADS 1 NEGATIVE. Left Breast: BIRADS 1 NEGATIVE. OVERALL FINAL ASSESSMENT: BIRADS 1 NEGATIVE. RECOMMENDATION: Routine annual follow-up in 1 Year A letter with findings and recommendations will be mailed to the patient. Reading Location: [facility]
== END | disposition home or self-care (01) ==
LOC: OPBI 09:55
PROVIDERS: PCP Family Medicine; Referring Provider Family Medicine; Visit Provider Family Medicine
DX: Z12.31 Encounter for screening mammogram for malignant neoplasm of breast (principal)
CPT/HCPCS: 77063; 77067